=== PATIENT | female | born 1980 | race Caucasian/White ===

== ENCOUNTER 2020-06-12 07:42 | Outpatient (REF) | payer OTHER, SELFPAY ==
[2020-06-12 08:19] LABS: Hematocrit 38.3 % (37-47); Hemoglobin 12.7 g/dl (12.0-16.0); Mean Corpuscular HGB Conc 33.2 g/dl (31.0-35.0); Mean Corpuscular Hemoglobin 30.8 pg (27.0-33.0); Mean Corpuscular Volume 92.7 fL (80-98); Mean Platelet Volume 9.6 fL (9.4-12.3); Platelet Count 233 X10*3/uL (160-400); Red Blood Count 4.13 X10*6/uL (4.20-5.50); Red Cell Distribution Width 11.4 % (11.0-16.0); White Blood Count 5.4 X10*3/uL (4.8-10.8)
[2020-06-12 08:55] LABS: Alanine Aminotransferase 12 U/L (0-31); Albumin Level 4.2 g/dL (3.5-5.0); Alkaline Phosphatase 53 U/L (39-117); Anion Gap 11 (12-20); Aspartate Amino Transferase 16 U/L (5-31); Bilirubin Total 0.4 mg/dL (0.0-1.0); Blood Urea Nitrogen 18 mg/dL (9-16); Carbon Dioxide 26 mmol/L (22-29); Chloride 105 mmol/L (96-108); Cholesterol 215 mg/dL; Estimated Glomerular Filt Rate > 60; Glucose Fasting 98 mg/dL (60-99); HDL Cholesterol 68 mg/dL; LDL Cholesterol Calculated 124 mg/dl; Potassium 4.6 mmol/l (3.3-5.1); Sodium 137 mmol/L (135-145); Total Protein 7.2 g/dL (6.5-8.0); Triglycerides 119 mg/dL
[2020-06-12 09:18] LABS: Thyroid Stimulating Hormone 0.87 mIU/mL (0.32-4.0)
[2020-06-12 09:23] LABS: Glucose Urine UA NEG (NEG); Leukocyte Esterase Urine NEG (NEG); Nitrite Urine NEG (NEG); PH 6.5 (5.0-8.0); Urine Ketones NEG (NEG); Urine Protein NEG (NEG-TRACE)
[2020-06-12 09:29] LABS: Appearance Urine CLEAR; Color Urine YELLOW; Urine Blood TRACE (NEG)
[2020-06-12 09:40] LABS: Squamous Epithelial Cell Urine 1+ /LPF; WBC Urine 0-2 /HPF (0-4)
== END 2020-06-12 07:43 | disposition home or self-care (01) ==
LOC: HO.LAB 07:42
PROVIDERS: PCP Internal Medicine; Visit Provider Internal Medicine
DX: Z00.00 Encounter for general adult medical examination without abnormal findings (principal)
CPT/HCPCS: 36415; 80053; 80061; 81001; 84443; 85027

== ENCOUNTER 2020-07-14 08:58 | Outpatient (REF) | payer OTHER, SELFPAY ==
--- NOTE | 2020-07-14 09:01 | MM_ITS ---
EXAMINATION: MM DIAGNOSTIC DIGITAL BREAST TOMOSYNTHESIS, BILATERAL CLINICAL INFORMATION: Probable benign asymmetric densities anterior left breast. Due for yearly. The lifetime risk of breast cancer based on the Tyrer-Cuzick Model is 16%. COMPARISON: Mammography: 01/14/2020, 07/13/2019, 05/03/2017 (baseline). TECHNIQUE: Digital breast tomosynthesis is performed in both the craniocaudal and mediolateral oblique views along with computer-aided detection (CAD). Synthesized 2D images are generated from the tomosynthesis. Additional exaggerated left CC view is provided. FINDINGS: There are scattered areas of fibroglandular density (ACR BI-RADS breast composition Category b). Parenchymal pattern is similar to prior studies. Parenchymal asymmetry central upper left breast on MLO view is similar to prior exams dating back to baseline study 2016. There is no developing density or interval mass or architectural abnormality. No abnormal calcifications. The axilla and skin contours are unremarkable. Results are discussed with the patient at time of visit. MM/MM tomosynthesis diagnostic BI IMPRESSION: No mammographic evidence of malignancy. No significant changes from prior studies dating back to baseline exam 05/03/2017. ASSESSMENT: BI-RADS 2: Benign RECOMMENDATION: Routine annual mammography screening, by age 40, or earlier as clinical risk factors warrant. This patient's information was entered into a reminder system with a target due date for their next mammogram.
== END 2020-07-14 08:59 | disposition home or self-care (01) ==
LOC: HO.MAMMO 08:58
PROVIDERS: PCP Internal Medicine; Visit Provider Internal Medicine
DX: R92.2 Inconclusive mammogram (principal)
CPT/HCPCS: 77062; 77066

== ENCOUNTER 2021-05-12 07:54 | Outpatient (REF) | payer OTHER, SELFPAY ==
[2021-05-12 08:40] LABS: Hematocrit 38.2 % (37-47); Hemoglobin 12.4 g/dl (12.0-16.0); Mean Corpuscular HGB Conc 32.5 g/dl (31.0-35.0); Mean Corpuscular Hemoglobin 29.9 pg (27.0-33.0); Mean Platelet Volume 9.5 fL (9.4-12.3); Platelet Count 238 X10*3/uL (160-400); Red Blood Count 4.15 X10*6/uL (4.20-5.50); Red Cell Distribution Width 11.5 % (11.0-16.0); White Blood Count 6.3 X10*3/uL (4.8-10.8)
[2021-05-12 08:43] LABS: Glucose Urine UA NEG (NEG); Leukocyte Esterase Urine 2+ (NEG); Nitrite Urine NEG (NEG); Specific Gravity - Urine <= 1.005 (1.005-1.025); Urine Blood TRACE (NEG); Urine Ketones NEG (NEG); Urine Protein NEG (NEG-TRACE)
[2021-05-12 08:44] LABS: Appearance Urine CLEAR; Color Urine YELLOW
[2021-05-12 08:52] LABS: RBC Urine 0-2 /HPF (0)
[2021-05-12 08:53] LABS: Bacteria Urine 1+ /LPF; Squamous Epithelial Cell Urine 2+ /LPF
[2021-05-12 09:05] LABS: Alanine Aminotransferase 12 U/L (0-31); Albumin Level 4.2 g/dL (3.5-5.0); Alkaline Phosphatase 56 U/L (39-117); Anion Gap 11 (12-20); Aspartate Amino Transferase 21 U/L (5-31); Bilirubin Total 0.8 mg/dL (0.0-1.0); Blood Urea Nitrogen 12 mg/dL (9-16); Calcium 9.4 mg/dL (8.4-10.2); Carbon Dioxide 25 mmol/L (22-29); Chloride 103 mmol/L (96-108); Cholesterol 229 mg/dL; Estimated Glomerular Filt Rate > 60; Glucose Fasting 95 mg/dL (60-99); HDL Cholesterol 80 mg/dL; LDL Cholesterol Calculated 119 mg/dl; Potassium 4.3 mmol/L (3.3-5.1); Sodium 135 mmol/L (135-145); Total Protein 7.5 g/dL (6.5-8.0); Triglycerides 154 mg/dL
== END 2021-05-12 07:55 | disposition home or self-care (01) ==
LOC: HO.LAB 07:54
PROVIDERS: PCP Internal Medicine; Visit Provider Internal Medicine
DX: Z00.00 Encounter for general adult medical examination without abnormal findings (principal)
CPT/HCPCS: 36415; 80053; 80061; 81001; 85027

== ENCOUNTER 2021-09-28 08:26 | Outpatient (REF) | payer OTHER, SELFPAY ==
--- NOTE | ~2021-09-28 | MM_ITS ---
EXAMINATION: MM SCREENING DIGITAL BREAST TOMOSYNTHESIS, BILATERAL CLINICAL INFORMATION: Screening. Asymptomatic. No known family history of breast cancer. The lifetime risk of breast cancer based on the Tyrer-Cuzick Model is 14%. COMPARISON: Mammography: 07/14/2020, 01/14/2020, 07/13/2019, 05/03/2017 (baseline); ultrasound left breast 07/13/2019, 05/03/2017. TECHNIQUE: Digital breast tomosynthesis is performed in both the craniocaudal and mediolateral oblique views along with computer-aided detection (CAD). Synthesized 2D images are generated from the tomosynthesis. FINDINGS: There are scattered areas of fibroglandular density (ACR BI-RADS breast composition Category b). Left breast has subtle new architectural changes anterior 5:30 o'clock position. Patient will be recalled for additional imaging. Remainder of the left breast appears similar to prior studies. There is nodular asymmetry upper quadrant mid depth approximately 0.7 cm with 2 smaller adjacent satellite nodularity central breast along posterior nipple line similar to baseline exam. The right breast shows no mass or architectural abnormality or significant changes. Neither breast shows abnormal calcifications. The axilla are unremarkable. No focal skin thickening. MM/MM tomosynthesis screening BI IMPRESSION: 1. Left: Subtle new architectural changes anterior 5:30 o'clock position. 2. Right: No mammographic evidence of malignancy. ASSESSMENT: BI-RADS 0: Incomplete - Need Additional Imaging Evaluation RECOMMENDATION: 1. Additional views of the left breast (rolled CC x 2; spot ML). 2. Targeted ultrasound left breast. 3. Radiology department staff will contact the patient for additional imaging. This patient's information was entered into a reminder system with a target due date for their next mammogram.
== END 2021-09-28 08:27 | disposition home or self-care (01) ==
LOC: HO.MAMMO 08:26
PROVIDERS: PCP Internal Medicine; Visit Provider Internal Medicine
DX: Z12.31 Encounter for screening mammogram for malignant neoplasm of breast (principal)
CPT/HCPCS: 77063; 77067

== ENCOUNTER 2021-10-02 09:19 | Outpatient (REF) | payer OTHER, SELFPAY ==
--- NOTE | ~2021-10-02 | MM_ITS ---
EXAMINATION: MM DIAGNOSTIC DIGITAL BREAST TOMOSYNTHESIS, LEFT US DIAGNOSTIC ULTRASOUND BREAST, LEFT CLINICAL INFORMATION: Recall from screening for subtle new architectural changes anterior lower left breast. No known family history breast cancer. TC score 14%. COMPARISON: Mammography: 09/28/2021, 07/14/2020 TECHNIQUE: Digital breast tomosynthesis is performed. 2D images are generated from the tomosynthesis. The following views are obtained: Rolled CC x2, spot ML. Ultrasound left breast is targeted to the lower breast. Grayscale imaging and color Doppler are performed without and with harmonics. Comparison scanning performed on the right same area. FINDINGS: There are scattered areas of fibroglandular density (ACR BI-RADS breast composition Category b). The additional views demonstrate persistence of the subtle focal architectural changes anterior lower breast corresponding to recent screening exam. Ultrasound demonstrates subtle architectural change anterior lower breast best appreciated on the transverse images and measuring approximately 5 mm in diameter. The finding is not as well appreciated scanning in the sagittal plane. There is no focal posterior shadowing. Results are discussed with the patient and her at time of visit. Recommended stereotactic sampling for further assessment. Results and recommendation called to home office representative (Abbie) for Dr. Tabares on 10/02/2021. MM/MM tomosynthesis added views L IMPRESSION: New subtle architectural changes lower anterior left breast. ASSESSMENT: BI-RADS 4: Suspicious RECOMMENDATION: Stereotactic biopsy left breast. This patient's information was entered into a reminder system with a target due date for their next mammogram.
== END 2021-10-02 09:20 | disposition home or self-care (01) ==
LOC: HO.MAMMO 09:19
PROVIDERS: Visit Provider Internal Medicine
DX: N64.89 Other specified disorders of breast (principal)
CPT/HCPCS: 76642; 77061; 77065

== ENCOUNTER 2021-10-05 11:33 | Outpatient (REF) | payer OTHER, SELFPAY ==
--- NOTE | ~2021-10-05 | MM_ITS ---
EXAMINATION: STEREOTACTIC TOMOSYNTHESIS-GUIDED VACUUM-ASSISTED BREAST BIOPSY, LEFT SPECIMEN RADIOGRAPH, LEFT POST PROCEDURE DIGITAL BREAST TOMOSYNTHESIS, LEFT CLINICAL INFORMATION: New subtle architectural changes lower anterior left breast for stereotactic sampling. COMPARISON: Mammography 10/02/2021, 09/28/2021, 07/14/2020, ultrasound left breast 10/02/2021. TECHNIQUE/PROCEDURE: Informed consent was obtained from the patient after discussion of the benefits, risks, and alternatives to biopsy today. Patient appeared to understand. Gave opportunity for questions. Patient signed consent form. BIOPSY TABLE: [employer] Biopsy System. LESION: Subtle architectural changes lower anterior left breast. LOCAL ANESTHESIA: 10 mL carbonated 1% lidocaine; 10 mL 1% lidocaine with epinephrine. DERMATOTOMY: Single skin sharmaine dermatotomy performed. NEEDLE: [employer] 9-gauge vacuum assisted core biopsy device. APPROACH: caudal cranial. TARGETING: Combination of digital breast tomosynthesis and stereotactic digital mammography used for targeting. CORES: 15. CLIP: [employer] T-shaped marker. SPECIMEN RADIOGRAPH: Specimen radiograph is taken in separate room using digital mammography. There are scattered parenchymal densities in the cores as anticipated. POST PROCEDURE UNILATERAL DIGITAL BREAST TOMOSYNTHESIS, LEFT: The post biopsy mammogram is performed in separate room using separate digital breast tomosynthesis equipment from the biopsy procedure. CC and ML views are obtained. Synthesized 2-D images are generated from the tomography. There are scattered areas of fibroglandular density (breast composition category: b). The clip marker is in position or overlying the area of subtle architectural change. No gross hematoma. The patient tolerated the procedure well. No immediate complications. Home instructions reviewed with the patient. Final pathology results are pending. MM/MM stereotactic biopsy LT IMPRESSION: 1. Digital tomosynthesis-guided core biopsy left breast with clip placement. 2. Specimen radiograph taken and post procedure mammogram. There is satisfactory positioning of the biopsy clip. 3. Final pathology results pending. An addendum report will be issued.
[2021-10-05] MEDS: Lidocaine HCl 1 % 20 ML VIAL 10 ML SUBCUT (13:27)
[2021-10-05] MEDS: Sodium Bicarbonate 8.4% 50 MEQ/50 ML VIAL SUBCUT (13:33)
== END 2021-10-05 11:34 | disposition home or self-care (01) ==
LOC: HO.MAMMO 11:33
PROVIDERS: PCP Internal Medicine; Visit Provider Surgery
DX: R92.8 Other abnormal and inconclusive findings on diagnostic imaging of breast (principal); C50.512 Malignant neoplasm of lower-outer quadrant of left female breast; Z17.0 Estrogen receptor positive status [ER+]; Z88.2 Allergy status to sulfonamides; Z79.3 Long term (current) use of hormonal contraceptives
CPT/HCPCS: 19081; 88305; 88342; 88360; A4648

== ENCOUNTER 2021-10-12 14:11 | Outpatient (REF) | payer OTHER, SELFPAY ==
[2021-10-12 15:36] LABS: Blood Urea Nitrogen 14 mg/dL (9-16); Estimated Glomerular Filt Rate > 60
== END 2021-10-12 14:12 | disposition home or self-care (01) ==
LOC: HO.LAB 14:11
PROVIDERS: PCP Internal Medicine; Visit Provider Surgery
DX: R92.8 Other abnormal and inconclusive findings on diagnostic imaging of breast (principal); C50.919 Malignant neoplasm of unspecified site of unspecified female breast
CPT/HCPCS: 36415; 82565; 84520

== ENCOUNTER 2021-10-16 07:19 | Outpatient (REF) | payer OTHER, SELFPAY ==
--- NOTE | ~2021-10-16 | MR_ITS ---
EXAMINATION: MR BREAST WITHOUT AND WITH CONTRAST, BILATERAL CLINICAL INFORMATION: New diagnosis left breast invasive lobular carcinoma, 6:00 position. COMPARISON: Bilateral mammogram 09/28/2021, targeted left breast ultrasound and left diagnostic mammogram 10/02/2021 and images from stereotactic core biopsy 10/05/2021 TECHNIQUE: Imaging was performed with a dedicated breast coil. Prior to the administration of contrast, bilateral axial T1 and bilateral axial T2 weighted sequences were obtained. After the uneventful administration of?7.5 mL of Gadavist, dynamic contrast-enhanced VIBRANT series through the breasts in the axial plane were performed. Subtracted images were performed and reviewed. A delayed sagittal sequence through both breasts was acquired. Additionally, CAD post-processing, including maximum intensity projections, 3-D reconstructions and kinetic analysis, were performed an independent workstation and reviewed by the interpreting radiologist is a portion of this exam. FINDINGS: The patient's scattered fibroglandular tissue demonstrates mild background enhancement. LEFT BREAST: In the 5:00 position, 3 cm from the nipple (subtracted sequence image 70 of 96) there is a clip containing irregular, T2 heterogeneous signal enhancing mass measuring 1.6 x 1.4 cm, this is consistent with the biopsy-proven invasive lobular carcinoma. Kinetic analysis of the index lesion reveals mixed type II and type III enhancement kinetics. There is mild skin thickening overlying the dominant lesion which may reflect postbiopsy change. No abnormal skin enhancement is seen. There is an area of nonmasslike enhancement approximately 1 cm posterior to the index lesion in the 5:00 segment approximately 2.1 cm, suspicious for malignancy. There are 2 small satellite nodules immediately superior to the index lesion, the more anterior of these measures 0.4 cm and is seen on image 68 of 96, the more superior of these satellite lesions measures 0.5 cm and is seen on image 65 of 96. In the 5:00 position, 9 cm from the nipple at a posterior depth (subtracted sequence image 74 of 96) there is a T2 hypointense round, indistinct enhancing mass measuring 0.8 cm, this demonstrates mixed (combined type II and type III) enhancement kinetics and is suspicious for multifocal disease. In the 2 to 3:00 position, 5 cm from the nipple (subtracted sequence image 54 of 96) there is a round, T2 heterogeneous signal enhancing mass measuring 0.6 cm. Although this demonstrates progressive enhancement kinetics, the morphology and discrete appearance of this finding are suspicious. In the retroareolar plane, central breast, 7 cm posterior to the nipple there is a tiny, round focus of enhancement that despite its small size (0.3 cm), demonstrates suspicious enhancement kinetics, combined type II and type III curves, also suspicious for an additional site of malignancy. Finally, there is an irregular shaped T2 hypointense enhancing nodule at the base of the nipple measuring 0.4 cm, enhancement kinetics are suspicious (combined type II and type III curve), suspicious for an additional site of malignancy. RIGHT BREAST: In the 8:00 position, 1.2 cm posterior to the nipple (subtracted sequence image 71 of 96) there is an enhancing focus measuring 0.3 cm, this demonstrates primarily type II enhancement kinetics and is indeterminate in appearance. There is no area of right-sided architectural distortion, skin thickening or nipple retraction present. There is no suspicious internal mammary chain or axillary adenopathy. Limited views of the chest and abdomen are unremarkable. MR/MR breast BI wo/w con IMPRESSION: Biopsy-proven left breast carcinoma, the index lesion is in the 5:00 position as above, measuring 1.6 cm in size; there is an associated area of suspicious nonmasslike enhancement measuring 2.1 cm, 1 cm posterior to the index lesion in the 5:00 segment. There are 2 probable small satellite lesions immediately superior to the index lesion in the 4 to 5:00 position as above. Additional abnormal enhancing masses are noted in the 5:00 position, posterior depth measuring 0.8 cm; 2 to 3:00 position at a middle depth measuring 0.6 cm;, in the central breast at a middle depth measuring 0.3 cm and at the base of the left nipple. Multicentric disease is suspected. There is a focus of indeterminate enhancement in the right breast at 8:00 position as above measuring 0.3 cm. ASSESSMENT: LEFT BREAST: BI-RADS 6, known malignancy is present. RIGHT BREAST: BI-RADS 4, suspicious. RECOMMENDATIONS: Recommend second look ultrasound to assess for multiple additional areas of abnormality in the left breast including nonmasslike enhancement posterior to the index lesion in the 5:00 segment measuring 2.1 cm, round enhancing mass in the 5:00 position, 9 cm from the nipple, round enhancing mass in the 2 to 3:00 position, middle depth and 0.4 cm nodule at the base of the nipple. If there are correlating areas on ultrasound, ultrasound-guided core biopsy may be performed to better determine the extent of disease. If no sonographic correlate is seen, MR guided core biopsy should be performed. It is unlikely that the enhancing focus in the central left breast and enhancing focus in the 8:00 position of the right breast would be visible with targeted ultrasound, therefore, MR guided core biopsy of those lesions is recommended. Results were called to JOSUE Mitchell at Dr. Tabares's office on 10/19/21.
== END 2021-10-16 07:20 | disposition home or self-care (01) ==
LOC: HO.MRI 07:19
PROVIDERS: Visit Provider Surgery
DX: C50.919 Malignant neoplasm of unspecified site of unspecified female breast (principal); R92.8 Other abnormal and inconclusive findings on diagnostic imaging of breast
CPT/HCPCS: 77049; A9585

== ENCOUNTER → 2021-10-19 12:52 | Outpatient (BNVA) | payer OTHER, SELFPAY | PROVIDERS: PCP Internal Medicine; Referring Provider Internal Medicine; Visit Provider Surgery ==

== ENCOUNTER 2022-10-08 08:13 | Outpatient (REF) | payer OTHER, SELFPAY ==
[2022-10-08 08:23] LABS: MANUAL DIFF FLAG NO
[2022-10-08 09:02] LABS: Basophils Percent Auto 0.4 % (0-2); Eosinophils Absolute Auto 0.1 X10*3/uL (0.0-0.4); Eosinophils Percent Auto 2.6 % (0-4); Hemoglobin 10.4 g/dl (12.0-16.0); Imm Gran Abs Auto 0.01 X10*3/uL (0.00-0.03); Imm Gran Pct Auto 0.4 % (0.0-0.4); Lymphocytes Absolute Auto 0.5 X10*3/uL (1.2-4.9); Lymphocytes Percent Auto 17.7 % (20-40); Mean Corpuscular HGB Conc 32.5 g/dl (31.0-35.0); Mean Corpuscular Hemoglobin 30.1 pg (27.0-33.0); Mean Corpuscular Volume 92.8 fL (80.0-98.0); Mean Platelet Volume 9.3 fL (9.4-12.3); Monocytes Absolute Auto 0.3 X10*3/uL (0.1-1.2); Monocytes Percent Auto 11.8 % (2-11); Neutrophils Absolute Auto 1.8 x10*3/uL (2.0-8.3); Neutrophils Percent Auto 67.1 % (45-73); Platelet Count 215 X10*3/uL (160-400); Red Blood Count 3.45 X10*6/uL (4.20-5.50); White Blood Count 2.7 X10*3/uL (4.8-10.8)
[2022-10-08 09:54] LABS: Alanine Aminotransferase 29 U/L (0-31); Albumin Level 4.1 g/dL (3.5-5.0); Alkaline Phosphatase 62 U/L (39-117); Anion Gap 11 (12-20); Aspartate Amino Transferase 28 U/L (5-31); Bilirubin Total 0.5 mg/dL (0.0-1.0); Blood Urea Nitrogen 14 mg/dL (9-16); Calcium 9.3 mg/dL (8.4-10.2); Carbon Dioxide 28 mmol/L (22-29); Chloride 106 mmol/L (96-108); Cholesterol 182 mg/dL; Estimated Glomerular Filt Rate > 60; Glucose Fasting 100 mg/dL (60-99); HDL Cholesterol 58 mg/dL; LDL Cholesterol Calculated 110 mg/dl; Potassium 4.3 mmol/L (3.3-5.1); Sodium 141 mmol/L (135-145); Total Protein 6.7 g/dL (6.5-8.0); Triglycerides 74 mg/dL
[2022-10-08 10:11] LABS: TSH reflex Free T4 1.03 uIU/mL (0.32-4.0)
== END 2022-10-08 08:14 | disposition home or self-care (01) ==
LOC: HO.LAB 08:13
PROVIDERS: PCP Internal Medicine; Visit Provider Internal Medicine
DX: Z00.00 Encounter for general adult medical examination without abnormal findings (principal)
CPT/HCPCS: 36415; 80053; 80061; 84443; 85025

== ENCOUNTER 2022-10-26 10:26 | Outpatient (REF) | payer OTHER, SELFPAY ==
--- NOTE | ~2022-10-26 | MM_ITS ---
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 Age 42. COMPARISON: None (current study represents initial baseline exam). TECHNIQUE: Using a evOLED DXA System (software version: 13.1) manufactured by [employer], dual-energy x-ray absorptiometry was performed of the lumbar spine and left hip. The images are of good technical quality. Based on ISCD (International Society for Clinical Densitometry) standards of reporting, Z-scores instead of T-scores are reported in this premenopausal woman. Summary results are attached. FINDINGS: AP SPINE L1-L4: BMD 1.131 g/cm2, T-score -0.4, Z-score -0.7, Z-score within expected range for age. LEFT FEMUR, NECK: BMD 0.895 g/cm2, T-score -1.0, Z-score -0.7, Z-score within expected range for age. LEFT FEMUR, TOTAL: BMD 0.970 g/cm2, T-score -0.3, Z-score -0.2, Z-score within expected range for age. IDENTIFIED RISK FACTORS: None listed. HISTORY OF FRACTURE: None listed. MEDICATIONS: Vitamin D. MM/XR DEXA axial skeleton IMPRESSION: 1. DIAGNOSIS: Based on the lowest Z-score value of -0.7 in the lumbar spine and femur neck, the patient's bone density is within the expected range for age. 2. 10-YEAR FRACTURE RISK PREDICTION, FRAX: Not performed in this perimenopausal patient. 3. Treatment Recommendations: NOF guidelines recommend consideration for treatment in postmenopausal women and men age 50 and older presenting with the following: -A hip or vertebral (clinical or morphometric) fracture. -T-score less than or equal to -2.5 at the femoral neck or spine after appropriate evaluation to exclude secondary causes. -Low bone mass at the hip or spine and a 10-year fracture probability by FRAX of greater than or equal to 3% for hip fracture or greater than or equal to 20% for major osteoporotic fracture based on the [place] adapted WHO algorithm. 4. Other Recommendations: All treatment decisions require clinical judgment and consideration of individual patient factors, including patient preferences, comorbidities, previous drug use, risk factors not captured in the FRAX model (e.g. frailty, falls, vitamin D deficiency, increased bone turnover, interval significant decline in bone density) and possible under or overestimation of fracture risk by FRAX. FUTURE SCAN RECOMMENDATION: People with diagnosed cases of osteoporosis or at high risk for fracture should have regular bone mineral density tests. For patients eligible for Medicare, routine testing is allowed once every 2 years. The testing frequency can be increased to one year for patients who have rapidly progressing disease, those who are receiving or discontinuing medical therapy to restore bone mass, or have additional risk factors.
== END 2022-10-26 10:27 | disposition home or self-care (01) ==
LOC: HO.MAMMO 10:26
PROVIDERS: PCP Internal Medicine; Visit Provider Internal Medicine
DX: N95.8 Other specified menopausal and perimenopausal disorders (principal); C50.912 Malignant neoplasm of unspecified site of left female breast; Z17.0 Estrogen receptor positive status [ER+]; Z13.820 Encounter for screening for osteoporosis
CPT/HCPCS: 77080

== ENCOUNTER 2022-12-20 09:01 | Outpatient (REF) | payer OTHER, SELFPAY ==
[2022-12-20 11:17] LABS: Iron 52 mcg/dL (30-160); Percent Iron Saturation 16 % (15-50); Total Iron Binding Capacity 321 mcg/dL (228-428); Unsaturated Iron Binding 269 ug/dL
[2022-12-20 11:35] LABS: Folate > 20.0 ng/mL (> or = 4.0); Vitamin B12 344 pg/mL (200-900)
== END 2022-12-20 09:02 | disposition home or self-care (01) ==
LOC: HO.LAB 09:01
PROVIDERS: Absent Provider Internal Medicine; PCP Internal Medicine; Visit Provider Internal Medicine
DX: D64.9 Anemia, unspecified (principal); K62.5 Hemorrhage of anus and rectum; K64.9 Unspecified hemorrhoids; Z83.71 Family history of colonic polyps
CPT/HCPCS: 36415; 82607; 82746; 83540

== ENCOUNTER 2023-02-28 15:29 | Outpatient (REF) | payer OTHER, SELFPAY ==
[2023-02-28 16:50] LABS: Hematocrit 32.8 % (37.0-47.0); Hemoglobin 10.9 g/dl (12.0-16.0); Mean Corpuscular HGB Conc 33.2 g/dl (31.0-35.0); Mean Corpuscular Hemoglobin 30.9 pg (27.0-33.0); Mean Corpuscular Volume 92.9 fL (80.0-98.0); Mean Platelet Volume 9.7 fL (9.4-12.3); Platelet Count 213 X10*3/uL (160-400); Red Blood Count 3.53 X10*6/uL (4.20-5.50); Red Cell Distribution Width 12.4 % (11.0-16.0); White Blood Count 5.6 X10*3/uL (4.8-10.8)
== END 2023-02-28 15:30 | disposition home or self-care (01) ==
LOC: HO.LAB 15:29
PROVIDERS: PCP Internal Medicine; Visit Provider Internal Medicine
DX: K62.5 Hemorrhage of anus and rectum (principal); D64.9 Anemia, unspecified
CPT/HCPCS: 36415; 85027

== ENCOUNTER 2023-04-20 07:49 | Day surgery (SDC) | payer OTHER, SELFPAY ==
[2023-04-15 15:09] VITALS: BMI 23.4
--- NOTE | 2023-04-19 10:40 | P.CONAN_ITS ---
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 (Acute) Invasive lobular carcinoma of breast in female (Acute) Abnormal mammogram of left breast (Acute) Normal Pap smear (Acute) Annual physical exam (Acute) Past Medical History Medical History Abnormal mammogram of left breast Annual physical exam Invasive lobular carcinoma of breast in female 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 Normal Pap smear Family History Family History Maternal Grandfather Colon polyps Surgical History Surgical History History of appendectomy Hx of bilateral mastectomy Social History Social History Housing: House Patient Tobacco Use Status: Never used Tobacco e-Cigarette/Vaping Use: Never Used Second Hand Smoke Exposure: No Are you DNR?: No Advance Directives: No Advance Directives Information Provided: Yes service: No Current occupational status: employed Cognitive needs: No Hearing needs: No Vision needs: No Meds Allergies Allergy/AdvReac Type Severity Reaction Status Date / Time Sulfa (Sulfonamide Allergy Intermediate HIVES, rash Verified 02/28/23 15:40 Antibiotics) [SULFA (SULFONAMIDE ANTIBIOTICS)] Latex, Natural Rubber Allergy Mild rash Verified 02/28/23 15:40 Home Medications Medication Instructions Recorded Confirmed Last Taken Type anastrozole 1 mg tablet 1 mg PO DAILY 10/13/22 04/20/23 04/19/23 History leuprolide 3.75 mg intramuscular 3.75 mg IM Q4W 12/20/22 04/20/23 03/29/23 History syringe kit (Lupron Depot) cholecalciferol (vitamin D3) 10 10 mcg PO DAILY 02/28/23 04/20/23 04/18/23 History mcg (400 unit) capsule vitamin B complex (B 1 tab PO DAILY 02/28/23 04/20/23 04/18/23 History Complex-Vitamin B12 tablet) Exam Exam Date and Time: April 19, 2023 1040 Height,Weight and Vital Signs: Height 5 ft 10 in Weight 73.936 kg Pertinent Lab Results Pertinent Lab Results: Laboratory Tests 10/08/22 02/28/23 08:22 16:31 WBC 5.6 Hgb 10.9 L Hct 32.8 L Plt Count 213 Sodium 141 Potassium 4.3 Chloride 106 Carbon Dioxide 28 BUN 14 Creatinine 0.81 Assessment and Plan Assessment Anesthesia Assessment: Chart Reviewed Documented by User: Shireen Short MD 04/20/23 09:34 PMFSH Active Problems Active Problems: All Active Problems (Updated 04/20/23 @ 09:23 by Shireen Short MD) FHx: colonic polyps (Acute) Artificial menopause (Acute) Anemia (Acute) Bright red rectal bleeding (Acute) Hemorrhoids (Acute) 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 (Acute) Invasive lobular carcinoma of breast in female (Acute) Abnormal mammogram of left breast (Acute) Normal Pap smear (Acute) Annual physical exam (Acute) Headache this morning Vomiting this morning X1 Past Medical History Medical History Abnormal mammogram of left breast Annual physical exam Invasive lobular carcinoma of breast in female 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 Normal Pap smear Family History Family History Maternal Grandfather Colon polyps Family history of problems with anesthesia: No Surgical History Surgical History History of appendectomy Hx of bilateral mastectomy History of Problems with Anesthesia: No Social History Social History Housing: House Patient Tobacco Use Status: Never used Tobacco e-Cigarette/Vaping Use: Never Used Second Hand Smoke Exposure: No Are you DNR?: No Advance Directives: No Advance Directives Information Provided: Yes service: No Current occupational status: employed Cognitive needs: No Hearing needs: No Vision needs: No Meds Allergies Allergy/AdvReac Type Severity Reaction Status Date / Time Sulfa (Sulfonamide Allergy Intermediate HIVES, rash Verified 02/28/23 15:40 Antibiotics) [SULFA (SULFONAMIDE ANTIBIOTICS)] Latex, Natural Rubber Allergy Mild rash Verified 02/28/23 15:40 Home Medications Medication Instructions Recorded Confirmed Last Taken Type anastrozole 1 mg tablet 1 mg PO DAILY 10/13/22 04/20/23 04/19/23 History leuprolide 3.75 mg intramuscular 3.75 mg IM Q4W 12/20/22 04/20/23 03/29/23 History syringe kit (Lupron Depot) cholecalciferol (vitamin D3) 10 10 mcg PO DAILY 02/28/23 04/20/23 04/18/23 History mcg (400 unit) capsule vitamin B complex (B 1 tab PO DAILY 02/28/23 04/20/23 04/18/23 History Complex-Vitamin B12 tablet) Exam Height,Weight and Vital Signs: Height 5 ft 10 in Weight 73.936 kg Vital Signs Temp Pulse Resp BP Pulse Ox O2 Del Method 04/20/23 08:28 97.7 F 72 16 117/84 99 Room Air Pertinent Lab Results Pertinent Lab Results: Laboratory Tests 10/08/22 02/28/23 08:22 16:31 WBC 5.6 Hgb 10.9 L Hct 32.8 L Plt Count 213 Sodium 141 Potassium 4.3 Chloride 106 Carbon Dioxide 28 BUN 14 Creatinine 0.81 Lab Results 04/20/23 Range/Units 08:15 Urine Test NEGATIVE (NEGATIVE) Airway Mallampati Class: II TM Dist: >3cm Neck ROM: Full Loose/Missing/Broken Teeth: No (Denies broken, loose, missing teeth) Heart: RRR Lungs: CTAB Assessment and Plan Assessment Anesthesia Assessment: Anesthesia Plan Discussed Final Anesthetic Review Family History of Problems with Anesthesia: No History of Problems with Anesthesia: No NPO: Yes ASA Class: II Final Preanesthetic Review: No Changes in Pt Med Stat, Meds/Allgs Chart Revie wed, Consent Obtained/Reviewed and Anes Risks/Benef Reviewed Patient Risk: Low Procedure Risk: Low Assessment/Block/Sedation in SS: Assess/Block/Sedation-SS Anesthetic Plan Anesthetic Plan: MAC: Disposition: Standard PACU
--- OUTSIDE RECORDS SUMMARY | 2023-04-20 07:52 | XMS_ITS | Continuity of Care Document ---
Author Name Unknown Organization [facility] ter Address [address] [place] [address]- Care Team Providers Care Tattoo Identifier Name Role Phone Anamaria Tabares MD Primary Care Physician [place] [facility] [place] - 07/19/[address] [address] Discharge Disposition: A-D/C Home Attending Physician: Sekou Watson MD Admitting Physician: Sekou Watson MD Referring Physician: Sekou Watson MD Allergies, Adverse Reactions, Alerts Substance Reaction Severity Status sulfADIAZINE full body rash Active Pollen congestion Active Medications acetaminophen 325 mg oral capsule 2 capsule = 650 mg, By Mouth, 3 times a day, PRN as needed for pain, for 10 days, # 60 capsule, 0 Refills, Acute 07/29/22 16:05:00 EST, 07/19/22 16:05:00 EST, Capsule, [id number], Partial fill upon patient request if the prescription is for a... Start Date: 07/19/22 Stop Date: 07/29/22 Status: Ordered cephalexin monohydrate 500 mg oral capsule 1 capsule = 500 mg, By Mouth, Every 8 hours, for 7 days, # 21 capsule, 0 Refills, Acute 07/26/22 16:05:00 EST, 07/19/22 16:05:00 EST, Capsule, [id number], Partial fill upon patient request ifthe prescription is for a schedule II opioid drug.,... Start Date: 07/19/22 Stop Date: 07/26/22 Status: Ordered HYDROmorphone Inj (PACU ONLY) 0.2 mg, Injection, IV Push Slowly, Every 5 minutes, up to a maximum of 2 mg, Hold for: RR less than8 OR Sedation Scale of C, PRN for Pain , Severe, Routine, 07/19/22 17:07:00 EST Start Date: 07/19/22 Stop Date: 07/26/22 Status: Ordered ibuprofen 600 mg oral tablet 600 mg, 1, tablet, By Mouth, Every 8 hours, for 10 days, # 30 tablet, Refills 0, Tot. Refills 0, Acute 07/29/22 16:05:00 EST, 07/19/22 16:05:00 EST, Route to Pharmacy Electronically, [facility]/pharmacy #[id number], Partial fill upon patient request if the prescri... Start Date: 07/19/22 Stop Date: 07/29/22 Status: Ordered oxyCODONE 5 mg oral tablet 5 mg, 1, tablet, By Mouth, Every 6 hours, PRN, for 3 days, # 12 tablet, Refills 0, Tot. Refills 0, Acute 07/22/22 16:06:00 EST, as needed for pain, 07/19/22 16:06:00 EST, Route to Pharmacy Electronically, [facility]/pharm[facility] #[id number], Partial fill upon patient... Start Date: 07/19/22 Stop Date: 07/22/22 Status: Ordered OxyCODONE IR Tablet 5 mg, Tablet, By Mouth, Every 4 hours, in PACU ONLY, if patient can tolerate PO, PRN for Pain , Mild, Routine, 07/19/22 17:07:00 EST Start Date: 07/19/22 Stop Date: 07/26/22 Status: Ordered Problem List Condition Confirmation Course Effective Dates Status Health St atus Informant COVID-19 1 Confirmed 02/26/22 Active Carcinoma of lower-outer quadrant of left breast in female, estrogen receptor positive Confirmed 09/2021 Active 1Problem added by Discern Expert Vital Signs Most recent to oldest [Reference Range]: 1 2 3 Height 175.2 cm (07/19/22 1:28 PM) 175.2 cm (07/16/22 8:33 AM) Weight 72.7 kg (07/19/22 1:28 PM) 72.7 kg (07/16/22 8:33 AM) Oxygen Saturation [94-100 %] 97 % (07/19/22 6:15 PM) 98 % (07/19/22 6:00 PM) 98 % (07/19/22 5:45 PM) Pulse Rate [55-90 bpm] 81 bpm (07/19/22 1:28 PM) Body Mass Index [18.5-24.99 kg/m2] 23.68 kg/m2 (07/19/22 1:28 PM) 23.68 kg/m2 (07/16/22 8:33 AM) Blood Pressure [90-138/55-84 mm Hg] 119/87mm Hg (07/19/22 6:15 PM) 124/84mm Hg (07/19/22 6:00 PM) 122/76mm Hg (07/19/22 5:45 PM) Respiratory Rate [16-30 br/min] 16 br/min (07/19/22 6:28 PM) 14 br/min *L* (07/19/22 6:18 PM) 14 br/min *L* (07/19/22 6:18 PM) Temperature [96.8-100.4 DegF] 97.6 DegF (07/19/22 5:30 PM) 99 DegF (07/19/22 1:28 PM) Mode of Delivery (Oxygen) Room air (07/19/22 7:30 PM) Room air (07/19/22 6:15 PM) Room air (07/19/22 6:00 PM) Blood pressure sites Arm, right (07/19/22 6:15 PM) Arm, right (07/19/22 6:00 PM) Arm, right (07/19/22 5:45 PM) Temperature Route Temporal (07/19/22 5:30 PM) Temporal (07/19/22 1:28 PM) Dry Weight 71.8 kg (07/19/22 1:28 PM) 72.7 kg (07/16/22 8:33 AM) Weight Obtained Via Patient/family state d (07/16/22 8:33 AM) Dry Weight Obtained Via Standing scale (07/19/22 1:28 PM) Patient/family stated (07/16/22 8:33 AM) Social History Social History Type Response Smoking Status Never (less than 100 in lifetime) entered on: 10/27/21 Sex Implantable Device List Procedure Provider Procedure Date Device Type Site Reconstruction Breast with Permanent Imp Walter DUEÑAS, Sekou Perez 11/18/21 Unknown Chest Device Identifier Serial Number Lot or Batch Number Manufacturing Date Expiration Date Distinct Identification Code MRI Safety Implantable Status Assigning Authority Unknown [id number] Unknown 07/30/26 Unknown Unknown Active Unknown Procedure Provider Procedure Date Device Type Site Reconstruction Breast with Permanent Imp Sekou Watson MD 11/18/21 Unknown Chest Device Identifier Serial Number Lot or Batch Number Manufacturing Date Expiration Date Distinct Identification Code MRI Safety Implantable Status Assigning Authority Unknown [id number] Unknown 05/05/26 Unknown Unknown Active Unknown Procedure Provider Procedure Date Device Type Site Reconstruction Breast with Permanent Imp Sekou Watson MD 11/18/21 Unknown Chest Device Identifier Serial Number Lot or Batch Number Manufacturing Date Expiration Date Distinct Identification Code MRI Safety Implantable Status Assigning Authority Unknown [id number] Unknown 02/09/26 Unknown Unknown Active Unknown Procedure Provider Procedure Date Device Type Site Reconstruction Breast with Permanent Imp Sekou Watson MD 11/18/21 Unknown Chest Device Identifier Serial Number Lot or Batch Number Manufacturing Date Expiration Date Distinct Identification Code MRI Safety Implantable Status Assigning Authority Unknown [id number] Unknown 02/09/26 Unknown Unknown Active Unknown Note * Sarika Armstrong RN: PERFORM Event Display: Discharge/Transfer Note Hospital Authored Date: [id number] Nursing Discharge Note Entered On: 07/19/2022 19:33 EST Performed On: 07/19/2022 19:32 EST by Sarika Armstrong RN Nursing Discharge Note 2 Discharge Time : 07/19/2022 19:31 EST Discharge Level of Care at Discharge : Home/[facility] Patient Left Unit Via : Wheelchair Patient Accompanied Off Unit with : Responsible adult DC Instructions Provided & Signed by Pt : Yes Patient Understands D/C Instructions : Yes Verbalized Understanding of D/C Plan By : Patient Patient Instructions Discharge Signed : Yes Did Pt have Specialty Bed or Wound Vac : No Sarika Armstrong RN - 07/19/2022 19:32 EST * Sarika Armstrong RN: PERFORM Event Display: Patient Education/Instruction Authored Date: [id number] Inpatient Adult Discharge Instructions [address] [address] Name: CYN BAEZ : 1980 Visit: 07/19/2022 11:55:00 Current Date: 07/19/2022 18:40 Account: [id number] Inpatient Adult Discharge Instructions We would like to thank you for allowing us to assist you with your healthcare needs. The following includes patient education materials and information regarding your injury/illness. Our entire staffstrives to provide an excellent experience for our patients and their families. PLEASE ENSURE YOU FOLLOW-UP PER THE INSTRUCTIONS BELOW! ?? YOUR OPINION IS IMPORTANT TO US! Please complete the survey you may receive by mail or email. Your feedback will be used to make improvements to the healthcare experiences of our patients and their families. Surveys are administered by [employer]. ?? If further treatment with your primary care physician or another doctor is recommended, it is important for you to keep the appointment. Call your primary care physician or return to the Emergency Department immediately if your condition worsens, fails to improve, or new symptoms develop. If you need to find a doctor, you can call [facility] [employer] for a referral at [phone] or toll free at [phone]YERKEI ([phone]) or log in to [email or web address] ?? You can view and manage your care through the patient portal or by using a health care helen of your choosing. [employer] is a website that allows you to securely view your medical information including your hospital discharge summary, office visit summaries, medications and follow-up visits. You can also request appointments, renew medications, and request access to your medical information using a health care helen of your choosing, or just ask a question. You can enroll at [email or web address] or register during your next office visit. You have been discharged from [facility], Patient Care Unit: [facility]. If you have any questions regarding these instructions after you leave, please call us and we will be happy to assist you. [facility] Your Care Team Attending Physician Walter DUEÑAS, Sekou Perez Discharging Providers Navya Renae MD Reason for Admission LEFT BREAST CANCER ACQUIRED ABSENCE OF LEFT BREAS Primary Care Provider Anamaria Tabares MD Advance Directive Health Care Proxy on File Yes - Health Care Proxy No qualifying data available. Discharge Vitals Temperature: 97.6 DegF Height: 175.2 cm Pulse Rate: 81 bpm Weight: 72.7 kg Respiratory Rate: 16 br/min Body Mass Index: 23.68 kg/m2 Systolic Blood Pressure: 119 mm Hg Body surface area: 1.88 Diastolic Blood Pressure:??87 mm Hg??High ?? Oxygen Saturation: 97 % ?? What to do next Instructions From Your Doctor Discharge Orders Instructions from your Care Team See post-op instruction sheets Take Tylenol as needed for pain, next dose due at 7:30pm Take Oxycodone as needed for severe pain, next dose due at 12:00am Patient may shower in 72 hours with Tegaderm left in place Patient to keep a drain log. A total of drain output in 24 hours recorded every day. Bring drain log to follow up appointment Medications sent electronically to pharmacy NO ICE Scheduled Follow-Up Appointments Tuesday 10:20 AM EST ?? With: Aleah Zhao NP Where: [facility] Plastic Surgery [address] [place] [address] 2021 11:40 AM EST ?? With: Sekou Watson MD Where: [facility] Plastic Surgery [address] [place] [address]- Tuesday 9:40 AM EST ?? With: Aleah Zhao NP Where: [facility] Plastic Surgery [address] [place] [address]- You Need to Schedule the Following Appointments Follow Up with??Sekou Watson When?? Where: [address] [place] [address] [address] [facility] [place] [address]- Business (1) Follow Up with??Anamaria Tabares When??In 0 days Where: [address] [place] [address]- Business (1) Discharge Medications CYN BAEZ :1980 Visit Date:07/19/2022 Medications: Please continue your medications until treatment is completed or stopped by your provider. Medications not listed below should be discontinued. Discuss any questions related to medications with your provider. What How Much When Instructions Next Dose New Acetaminophen (acetaminophen 325 mg oral capsule) 2 capsule Oral 3 times a day as needed for as needed for pain Duration: 10 Days Pickup at [facility]/pharmacy #[id number] New Cephalexin (cephalexin monohydrate 500 mg oral capsule) 1 capsule Oral Every 8 hours Duration: 7 Days Pickup at [facility]/pharmacy #0838 New Ibuprofen (ibuprofen 600 mg oral tablet) 1 tab(s) Oral Every 8 hours Duration: 10 Days Pickup at [facility]/pharmacy #0838 New Oxycodone (oxyCODONE 5 mg oral tablet) 1 tab(s) Oral Every 6 hours as needed for as needed for pain Duration: 3 Days Pickup at [facility]/pharmacy #0838 [id number] [address] [place], [place] [id number] [phone] Allergies (NKA means No Known Allergies) Pollen??(congestion) sulfADIAZINE??(full body rash) Common Emergency Awareness Tips IS IT A STROKE? Act FAST and Check for these signs: FACE Does the face look uneven? ARM Does one arm drift down? SPEECH Does their speech sound strange? TIME Call at any sign of stroke ?? Heart Attack Signs Chest discomfort: Most heart attacks involve discomfort in the center of the chest and lasts more than a few minutes, or goes away and comes back. It can feel like uncomfortable pressure, squeezing, fullness or pain. Discomfort in upper body: Symptoms can include pain or discomfort in one or both arms, back, neck, jaw or stomach. Shortness of breath: With or without discomfort. Other signs: Breaking out in a cold sweat, nausea, or lightheaded. Remember, MINUTES DO MATTER. If you experience any of these heart attack warning signs, call to get immediate medical attention! ?? Smoking can increase your chances of developing chronic health problems and can cause harmful effects to other family members in your house. If you smoke, you are strongly encouraged to quit. Please call [facility] [employer] Link at [phone] or [phone] ([phone]) or log in to [email or web address] for referrals to smoking cessation programs. ?? The National Suicide Prevention Hotline is available 04/04 if you or someone you know needs to find a reason to keep living. By calling 2-158-589-Event 38 [employer] (1713) you'll be connected to a skilled, trained counselor at a crisis center in your area. INPATIENT DISCHARGE INSTRUCTIONS SIGNATURE PAGE CYN BAEZ Location:[facility] Registration Date and Time:07/19/2022 11:55 EST Primary Care Physician: Anamaria Tabares MD, CYN PURCELL, have received the above patient education materials/instructions and have verbalized understanding. If ambulance or transport services are being used I further acknowledge being given a choice of service. ?? If you need to contact me, please call me at this number: . Patient/Color Maker Name: Patient/Color Maker Signature: Relationship to Patient: Witness Name/Signature: Date: * Sarika Armstrong RN: PERFORM, SIGN, VERIFY Event Display: Patient Education Handout Authored Date: * Sarika Armstrong RN: PERFORM Event Display: Patient Education Leaflets Authored Date: Surgery Medical Daystay Surgical Overnight Discharge Instructions ?? 295 Medical Daystay/Surgical Overnight Discharge Instructions ? Since your coordination and judgment may be altered by medication and/or anesthesia, a responsible adult must drive you home from the hospital. ? If you have received medication for pain or sedation while under our care, you should not drive, operate machinery, drink alcohol, or sign any legal documents for 24 hours.?? You should have someone with you at home tonight. ? Remain at home the day of discharge.?? You may be up and about unless otherwise instructed by your physician. ? You may resume your daily prescription medication schedule.?? Any depressant medication should be avoided for 24 hours unless otherwise instructed by your surgeon or anesthesiologist. ? Call your physician for a follow-up appointment.? If you experience unusual or severe pain not relied by your pain medication, excessive bleedingor drainage, persistent nausea and vomiting, excessive swelling or redness, foul odor from incisionsite or fever over 100.6F, you need to call your physician. ? A follow-up phone call by a nurse will be made the day after your procedure.?? If you have stayed with us over night, you will not be receiving a follow-up phone call. ? Nausea and vomiting are a common side effect of prescription pain medication.?? We recommend that pills are not taken on an empty stomach.?? While taking any prescription pain medication you should not drive or drink alcohol. ? Patient Care team information Care Team Personnel Name: Anamaria Tabares MD Position: [facility] Physician (General Medicine) Member Role: PCP Address: Address: [address] [place] [address]- Care Team Related Persons Name: ADELAIDE BAEZ Address: [address] [address]
--- OUTSIDE RECORDS SUMMARY | 2023-04-20 07:52 | XMS_ITS | Continuity of Care Document ---
Author Name Unknown Organization [facility] Address [address] [place] [address] [address] [place] [address]- Care Team Providers Care Product Marketing Consultant Name Role Phone Rayshawn DUEÑAS, Anamaria Primary Care Physician [phone] Encounter [facility] [place] Date(s): 03/23/22 - 03/30/22 [facility] [address] [place] [address] Drive [address] [place], [place] [address] Attending Physician: Pavel CUETO, Aleah Gomez Referring Physician: Juani Collins Allergies, Adverse Reactions, Alerts Substance Reaction Severity Status sulfADIAZINE full body rash Active Pollen congestion Active Problem List Condition Effective Dates Status Health Status Inform ant COVID-19(Confirmed) 1 02/26/22 Active 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, estrogen receptor positive(Confirmed) 09/2021 Active 1Problem added by Discern Expert Vital Signs Most recent to oldest [Reference Range]: 1 Height 174.7 cm (03/23/22 10:13 AM) Temperature [96.8-100.4 DegF] 96.7 DegF *L* (03/23/22 10:13 AM) Temperature Route Temporal (03/23/22 10:13 AM) Social History Social History Type Response Smoking Status Never (less than 100 in lifetime) entered on: 10/27/21 Sex Medical Equipment Implanted Date:11/18/21Target Site:Chest Description Quantity MRI Company Model MESH ALLOMAX HUMAN 16X20 - B JULES ([id number]) 1 Bard Unknown MARY:No Information Assigning Authority: FDA MESH ALLOMAX HUMAN 16X20 - B JULES ([id number]) 1 Bard Unknown MARY:No Information Assigning Authority: FDA IMPLANT BREAST MODPRO XTRA 3 25 - MNTR ([id number]) 1 Chadwick Carlos Unknown MARY:No Information Assigning Authority: FDA IMPLANT BREAST MODPRO XTRA 3 25 - MNTR ([id number]) 1 Chadwick Carlos Unknown MARY:No Information Assigning Authority: FDA
--- OUTSIDE RECORDS SUMMARY | 2023-04-20 07:52 | XMS_ITS | Continuity of Care Document ---
Author Name Unknown Organization [facility] Address [address] [place] [address]- Care Team Providers Care Banquet Waiter/Waitress Name Role Phone Anamaria Tabares MD Primary Care Physician [phone] [facility] [place] Date(s): 10/16/21 - 03/15/22 [facility] [address] [place] [address]- Discharge Disposition: A-D/C Home Attending Physician: Effie Maldonado MD Admitting Physician: Sandro DUEÑAS, James Roth Referring Physician: Gracie Chang MD Allergies, Adverse Reactions, Alerts Substance Reaction Severity Status sulfADIAZINE full body rash Active Pollen congestion Active Problem List Condition Effective Dates Status Health Status Inform ant COVID-19(Confirmed) 1 02/26/22 Active 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, estrogen receptor positive(Confirmed) 09/2021 Active 1Problem added by Discern Expert Vital Signs Most recent to oldest [Reference Range]: 1 2 3 Height 174.7 cm (01/13/22 10:28 AM) 174.7 cm (12/10/21 1:59 PM) 176.5 cm (12/10/21 1:13 PM) Weight 75.0 kg (01/13/22 10:28 AM) 73.0 kg (12/10/21 1:59 PM) 73.2 kg (12/10/21 1:13 PM) Pulse Rate [55-90 bpm] 73 bpm (01/13/22 10:28 AM) 90 bpm (12/10/21 1:59 PM) 101 bpm *H* (12/10/21 1:13 PM) Body Mass Index [18.5-24.99] 24.57 (01/13/22 10:28 AM) 23.92 (12/10/21 1:59 PM) 23.5 (12/10/21 1:13 PM) Blood Pressure [90-138/55-84 mm Hg] 134/85mm Hg (01/13/22 10:28 AM) 112/78mm Hg (12/10/21 1:59 PM) 146/83mm Hg *H* (12/10/21 1:13 PM) Temperature [96.8-100.4 DegF] 97.4 DegF (01/13/22 10:28 AM) 98.3 DegF (12/10/21 1:59 PM) 98.3 DegF (12/10/21 1:13 PM) Blood pressure sites Arm, left (01/13/22 10:28 AM) Arm, right (12/10/21 1:59 PM) Arm, left (12/10/21 1:13 PM) Temperature Route Temporal (01/13/22 10:28 AM) Temporal (12/10/21 1:59 PM) Temporal (12/10/21 1:13 PM) Dry Weight 75.0 kg (01/13/22 10:28 AM) 73.0 kg (12/10/21 1:59 PM) 73.2 kg (12/10/21 1:13 PM) Weight Obtained Via Standing scale (01/13/22 10:28 AM) Standing scale (12/10/21 1:59 PM) Standing scale (12/10/21 1:13 PM) Dry Weight Obtained Via Standing scale (01/13/22 10:28 AM) Standing scale (12/10/21 1:59 PM) Standing scale (12/10/21 1:13 PM) Social History Social History Type Response Smoking Status Never (less than 100 in lifetime) entered on: 10/27/21 Sex Medical Equipment Implanted Date:11/18/21Target Site:Chest Description Quantity MRI Company Model MESH ALLOMAX HUMAN 16X20 - B JULES ([id number]) 1 Bard Unknown MARY:No Information Assigning Authority: FDA MESH ALLOMAX HUMAN 16X20 - B JULES ([id number]) 1 Bard Unknown MARY:No Information Assigning Authority: FDA IMPLANT BREAST MODPRO XTRA 3 25 - MNTR ([id number]) 1 Per[place]o Unknown MARY:No Information Assigning Authority: FDA IMPLANT BREAST MODPRO XTRA 3 25 - MNTR ([id number]) 1 Bailey Carlos Unknown MARY:No Information Assigning Authority: FDA
--- OUTSIDE RECORDS SUMMARY | 2023-04-20 07:52 | XMS_ITS | Continuity of Care Document ---
Author Name Unknown Organization [facility] Address [address] [place] [address]- Care Team Providers Care Industrial Services Worker Name Role Phone Anamaria Tabares MD Primary Care Physician [phone] Encounter [facility] [place] Date(s): 05/10/22 - 11/29/22 [facility] [address] [place] [address]- Discharge Disposition: A-D/C Home Attending Physician: James Jo MD Admitting Physician: James Jo MD Referring Physician: Gracie Chang MD Allergies, Adverse Reactions, Alerts Substance Reaction Severity Status sulfADIAZINE full body rash Active Pollen congestion Active Medications benadryl elixir 4 oz; lidocaine viscous 2% 100 ml; mylanta or maalox 8 oz; benadryl elixir 4 oz; lidocaine viscous 2% 100 ml; mylanta or maalox 8 oz;, See Instructions, # 460mL, Refills 5, Tot. Refills 5, Maintenance, 1-2 tsp q 2-4 hrs prn. Take 5 min prior to swallowing food. Shake well before use and refrigerate unused... Start Date: 09/08/22 Status: Ordered mometasone 0.1% topical cream 1 application, Topically, 2 times a day, for 30 days, Apply thin film twice daily to treatment areastarting on the first day of radiation and continuing for at least 2 weeks after completion of treatment., # 45 Gm, 2 Refills, Acute 12/21/22 9:20:00 E... Start Date: 09/22/22 Stop Date: 12/21/22 Status: Ordered Problem List Condition Confirmation Course Effective Dates Status Health St [facility] Informant COVID-19 1 Confirmed 02/26/22 Active Carcinoma of lower-outer quadrant of left breast in female, estrogen receptor positive Confirmed 09/2021 Active 1Problem added by Discern Expert Vital Signs Most recent to oldest [Reference Range]: 1 2 Height 175.2 cm (07/27/22 8:06 AM) 174.7 cm (06/18/22 1:02 PM) Weight 73.2 kg (07/27/22 8:06 AM) 71.8 kg (06/18/22 1:02 PM) Oxygen Saturation [94-100 %] 100 % (07/27/22 8:06 AM) 100 % (06/18/22 1:02 PM) Pulse Rate [55-90 bpm] 83 bpm (07/27/22 8:06 AM) 72 bpm (06/18/22 1:02 PM) Body Mass Index [18.5-24.99 kg/m2] 23.85 kg/m2 (07/27/22 8:06 AM) 23.53 kg/m2 (06/18/22 1:02 PM) Blood Pressure [90-138/55-84 mm Hg] 110/ 79mm Hg (07/27/22 8:06 AM) 129/86mm Hg (06/18/22 1:02 PM) Temperature [96.8-100.4 DegF] 97.8 DegF (07/27/22 8:06 AM) 97.0 DegF (06/18/22 1:02 PM) Mode of Delivery (Oxygen) Room air (07/27/22 8:06 AM) Blood pressure sites Arm, right (07/27/22 8:06 AM) Arm, right (06/18/22 1:02 PM) Temperature Route Temporal (07/27/22 8:06 AM) Temporal (06/18/22 1:02 PM) Dry Weight 73.2 kg (07/27/22 8:06 AM) 71.8 kg (06/18/22 1:02 PM) Weight Obtained Via Standing scale (07/27/22 8:06 AM) Standing scale (06/18/22 1:02 PM) Dry Weight Obtained Via Standing scale (07/27/22 8:06 AM) Standing scale (06/18/22 1:02 PM) Social History Social History Type Response Smoking Status Never (less than 100 in lifetime) entered on: 10/27/21 Sex Implantable Device List Procedure Provider Procedure Date Device Type Site Reconstruction Breast with Permanent Sekou Samuel MD 11/18/21 Unknown Chest Device Identifier Serial Number Lot or Batch Number Manufacturing Date Expiration Date Distinct Identification Code MRI Safety Implantable Status Assigning Authority Unknown [id number] Unknown 07/30/26 Unknown Unknown Active Unknown Procedure Provider Procedure Date Device Type Site Reconstruction Breast with Permanent Sekou Samuel MD 11/18/21 Unknown Chest Device Identifier Serial Number Lot or Batch Number Manufacturing Date Expiration Date Distinct Identification Code MRI Safety Implantable Status Assigning Authority Unknown [id number] Unknown 05/05/26 Unknown Unknown Active Unknown Procedure Provider Procedure Date Device Type Site Reconstruction Breast with Permanent Sekou Samuel MD 11/18/21 Unknown Chest Device Identifier Serial Number Lot or Batch Number Manufacturing Date Expiration Date Distinct Identification Code MRI Safety Implantable Status Assigning Authority Unknown [id number] Unknown 02/09/26 Unknown Unknown Active Unknown Procedure Provider Procedure Date Device Type Site Reconstruction Breast with Permanent Sekou Samuel MD 11/18/21 Unknown Chest Device Identifier Serial Number Lot or Batch Number Manufacturing Date Expiration Date Distinct Identification Code MRI Safety Implantable Status Assigning Authority Unknown [id number] Unknown 02/09/26 Unknown Unknown Active Unknown Patient Care team information Care Team Personnel Name: Anamaria Tabares MD Position: [facility] Physician (General Medicine) Member Role: PCP Address: Address: [address] [place] [address]- Care Team Related Persons Name: ADELAIDE BAEZ Address: home [address] [place] [address]
--- OUTSIDE RECORDS SUMMARY | 2023-04-20 07:52 | XMS_ITS | Continuity of Care Document ---
Author Name Unknown Organization [facility] Address [address] [place] [address] [address] [place] [address]- Care Team Providers Care Train Inspector Name Role Phone Anamaria Tabares MD Primary Care Physician [phone] Encounter [facility] [place] Date(s): 03/01/22 - 03/08/22 [facility] [address] [place] [address] Drive [address] [place], [place] [address] Attending Physician: Sekou Watson MD Allergies, Adverse Reactions, Alerts Substance Reaction Severity Status sulfADIAZINE full body rash Active Pollen congestion Active Medications acetaminophen 325 mg oral capsule 1 capsule = 325 mg, By Mouth, 4 times a day, PRN as needed for pain, for 10 days, # 80 capsule, 0 Refills, Acute 03/15/22 9:21:00 EDT, 03/05/22 9:21:00 EDT, Capsule, [facility] #[id number], Partial fill upon patient request if the prescription is... Start Date: 03/05/22 Stop Date: 03/15/22 Status: Ordered doxycycline hyclate 100 mg oral enteric coated tablet 1 tablet = 100 mg, By Mouth, 2 times a day, for 10 days, # 20 tablet, 0 Refills, Acute 03/11/22 9:34:00 EDT, 03/01/22 9:34:00 EDT, CR Tablet, [facility] #[id number], Partial fill upon patient request if the prescription is for a schedule II opioi... Start Date: 03/01/22 Stop Date: 03/11/22 Status: Ordered ibuprofen 600 mg oral tablet 600 mg, 1, tablet, By Mouth, Every 8 hours, for 10 days, # 30 tablet, Refills 0, Tot. Refills 0, Acute 03/15/22 9:21:00 EDT, 03/05/22 9:21:00 EDT, Route to Pharmacy Electronically, [facility] #[id number], Partial fill upon patient request if the... Start Date: 03/05/22 Stop Date: 03/15/22 Status: Ordered levoFLOXacin 750 mg oral tablet 1 tablet = 750 mg, By Mouth, Every 24 hours, for 10 days, # 10 tablet, 0 Refills, Acute 03/11/22 16:07:00 EDT, 03/01/22 16:07:00 EDT, Tablet, [facility] #[id number], Partial fill upon patient request if the prescription is for a schedule II opioi... Start Date: 03/01/22 Stop Date: 03/11/22 Status: Ordered Problem List Condition Effective Dates Status Health Status Inform ant COVID-19(Confirmed) 1 02/26/22 Active 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, estrogen receptor positive(Confirmed) 09/2021 Active 1Problem added by Discern Expert Vital Signs Most recent to oldest [Reference Range]: 1 Height 174.7 cm (03/01/22 3:39 PM) Pulse Rate [55-90 bpm] 99 bpm *H* (03/01/22 3:39 PM) Blood Pressure [90-138/55-84 mm Hg] 126/ 77mm Hg (03/01/22 3:39 PM) Respiratory Rate [16-30 br/min] 18 br/mi n (03/01/22 3:39 PM) Temperature [96.8-100.4 DegF] 98.9 DegF (03/01/22 3:39 PM) Blood pressure sites Arm, left (03/01/22 3:39 PM) Temperature Route Temporal (03/01/22 3:39 PM) Social History Social History Type Response Smoking Status Never (less than 100 in lifetime) entered on: 10/27/21 Sex Medical Equipment Implanted Date:11/18/21Target Site:Chest Description Quantity MRI Company Model MESH ALLOMAX HUMAN 16X20 - B JULES ([id number]) 1 Bard Unknown MARY:No Information Assigning Authority: FDA MESH ALLOMAX HUMAN 16X20 - B JULES ([id number]) 1 Bard Unknown MARY:No Information Assigning Authority: FDA IMPLANT BREAST MODPRO XTRA 3 25 - MNTR ([id number]) 1 Llewellyn Carlos Unknown MARY:No Information Assigning Authority: FDA IMPLANT BREAST MODPRO XTRA 3 25 - MNTR ([id number]) 1 [place] Carlos Unknown MARY:No Information Assigning Authority: FDA
--- OUTSIDE RECORDS SUMMARY | 2023-04-20 07:52 | XMS_ITS | Continuity of Care Document ---
Author Name Unknown Organization [facility] Address [address] [place] [address] [address] [place] [address]- Care Team Providers Care Rod Machine Operator Name Role Phone Anamaria Tabares MD Primary Care Physician [phone] Encounter [facility] [place] Date(s): 09/03/22 - 10/03/22 [facility] [address] [place] [address] Drive [address] [place] [address]- Attending Physician: Admtr, Aida Admitting Physician: Admtr, Ar8 Referring Physician: Admtr, Ar8 Allergies, Adverse Reactions, Alerts Substance Reaction Severity [...] 09/2021 Active 1Problem added by Discern Expert Social History Social History Type Response Smoking Status Never (less than 100 in lifetime) entered on: 10/27/21 Sex Implantable Device List Procedure Provider Procedure Date Device Type Site Reconstruction Breast with Permanent Sekou Samuel MD 11/18/21 Unknown Chest Device Identifier Serial Number Lot or Batch Number Manufacturing Date Expiration Date Distinct Identification Code MRI Safety Implantable Status Assigning Authority Unknown [id number] Unknown 07/30/26 Unknown Unknown Active Unknown Procedure Provider Procedure Date Device Type Site Reconstruction Breast with Permanent Sekou Samuel MD 11/18/21 Unknown Chest Device Identifier Serial Number Lot or Batch Number Manufacturing Date Expiration Date Distinct Identification Code MRI Safety Implantable Status Assigning Authority Unknown [id number] Unknown 05/05/26 Unknown Unknown Active Unknown Procedure Provider Procedure Date Device Type Site Reconstruction Breast with Permanent Sekou Samuel MD 11/18/21 Unknown Chest Device Identifier Serial Number Lot or Batch Number Manufacturing Date Expiration Date Distinct Identification Code MRI Safety Implantable Status Assigning Authority Unknown [id number] Unknown 02/09/26 Unknown Unknown Active Unknown Procedure Provider Procedure Date Device Type Site Reconstruction Breast with Permanent Sekou Samuel MD 11/18/21 Unknown Chest Device Identifier Serial Number Lot or Batch Number Manufacturing Date Expiration Date Distinct Identification Code MRI Safety Implantable Status Assigning Authority Unknown [id number] 65 Unknown 02/09/26 Unknown Unknown Active Unknown Patient Care team information Care Team Personnel Name: Anamaria Tabares MD Position: [facility] Physician (General Medicine) Member Role: PCP Address: Address: [address] [place] [address]- Care Team Related Persons Name: ADELAIDE BAEZ Address: home [address] [place] [address]
--- OUTSIDE RECORDS SUMMARY | 2023-04-20 07:52 | XMS_ITS | Continuity of Care Document ---
Author Name Unknown Organization [facility] Address [address] [place] [address]- Care Team Providers Care Maitre D' Name Role Phone Anamaria Tabares MD Primary Care Physician Encounter 11/19/21 - 11/30/21 [facility] [address] [place] [address]- Discharge Disposition: CLIENT NO LONGER REQUIRES SKILLED CARE Allergies, Adverse Reactions, Alerts Substance Reaction Severity Status sulfADIAZINE full body rash Active Pollen Active Medications lidocaine 4% topical cream 1 application, Topically, Once, Apply to nipple areola 1 hour before arriving for surgery, cover with saran wrap., # 5 Gm, 0 Refills, Soft Stop, 10/27/21 13:06:00 EST, Cream, [facility] #[id number], Partial fill upon patient request if the prescr... Start Date: 10/27/21 Status: Ordered oxyCODONE 5 mg oral tablet 5 mg, 1, tablet, By Mouth, Every 6 hours, PRN, # 18 tablet, Refills 0, Tot. Refills 0, Maintenance,Pain , Severe, 11/18/21 8:30:00 EST, Route to Pharmacy Electronically, [facility] #[id number],Partial fill upon patient request if the prescripti... Start Date: 11/18/21 Status: Ordered Problem List Condition Effective Dates Status Health Status Inform ant 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, estrogen receptor positive(Confirmed) 09/2021 Active Social History Social History Type Response Smoking Status Never (less than 100 in lifetime) entered on: 10/27/21 Sex Medical Equipment Implanted Date:11/18/21Target Site:Chest Description Quantity MRI Company Model MESH ALLOMAX HUMAN 16X20 - B JULES ([id number]) 1 Bard Unknown MARY:No Information Assigning Authority: [facility] MESH ALLOMAX HUMAN 16X20 - B JULES ([id number]) 1 Bard Unknown MARY:No Information Assigning Authority: FDA IMPLANT BREAST MODPRO XTRA 3 25 - MNTR ([id number]) 1 [place] Carlos Unknown MARY:No Information Assigning Authority: FDA IMPLANT BREAST MODPRO XTRA 3 25 - MNTR ([id number]) 1 [place] Carlos Unknown MARY:No Information Assigning Authority: FDA
--- OUTSIDE RECORDS SUMMARY | 2023-04-20 07:52 | XMS_ITS | Continuity of Care Document ---
Author Name Unknown Organization [facility] ter Address [address] [place] [address]- Care Team Providers Care Baseball Glove Shaper Name Role Phone Anamaria Tabares MD Primary Care Physician [phone] Encounter [facility] [place] Date(s): 03/05/22 - 03/05/[address] [address] Discharge Disposition: A-D/C Home Attending Physician: Sekou [...] 03/15/22 9:21:00 EDT, 03/05/22 9:21:00 EDT, Capsule, [facility] #[id number], Partial fill upon patient request if the prescription is... Start Date: 03/05/22 Stop Date: 03/15/22 Status: Ordered doxycycline hyclate 100 mg oral enteric coated tablet 1 tablet = 100 mg, By Mouth, 2 times a day, for 10 days, # 20 tablet, 0 Refills, Acute 03/11/22 9:34:00 EDT, 03/01/22 9:34:00 EDT, CR Tablet, [id number], Partial fill upon patient request if the prescription is for a schedule II opioi... Start Date: 03/01/22 Stop Date: 03/11/22 Status: Ordered ibuprofen 600 mg oral tablet 600 mg, 1, tablet, By Mouth, Every 8 hours, for 10 days, # 30 tablet, Refills 0, Tot. Refills 0, Acute 03/15/22 9:21:00 EDT, 03/05/22 9:21:00 EDT, Route to Pharmacy Electronically, [facility] #[id number], Partial fill upon patient request if the... Start Date: 03/05/22 Stop Date: 03/15/22 Status: Ordered levoFLOXacin 750 mg oral tablet 1 tablet = 750 mg, By Mouth, Every 24 hours, for 10 days, # 10 tablet, 0 Refills, Acute 03/11/22 16:07:00 EDT, 03/01/22 16:07:00 EDT, Tablet, [facility] #[id number], Partial fill upon patient request if the prescription is for a schedule II opioi... Start Date: 03/01/22 Stop Date: 03/11/22 Status: Ordered oxyCODONE 5 mg oral tablet 5 mg, 1, tablet, By Mouth, Every 6 hours, PRN, for 3 days, # 12 tablet, Refills 0, Tot. Refills 0, Acute 03/08/22 9:20:00 EDT, as needed for pain, 03/05/22 9:20:00 EDT, Route to Pharmacy Electronically, [id number], Partial fill upon p... Start Date: 03/05/22 Stop Date: 03/08/22 Status: Ordered OxyCODONE IR Tablet 5 mg, Tablet, By Mouth, Every 4 hours, in PACU ONLY, if patient can tolerate PO, PRN for Pain , Mild, Routine, 03/05/22 8:52:00 EDT Start Date: 03/05/22 Stop Date: 03/05/22 Status: Discontinued Problem List Condition Effective Dates Status Health Status Inform ant COVID-19(Confirmed) 1 02/26/22 Active 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, estrogen receptor positive(Confirmed) 09/2021 Active 1Problem added by Discern Expert Results Orders for Microbiology Reports Name Date Anaerobic Culture (ANAEROBIC CULTURE) Sterile Body Fluid Culture W/ Gram Smear (STERILE FLUID CULT.) 03/05/22 Microbiology Reports TEST:Anaerobic Culture STATUS:Unauthenticated BODY SITE: SOURCE:FLUID COLLECTED DATE/TIME:03/05/22 8:15 AM Anaerobic Culture SPECIMEN DESCRIPTION : FLUID LEFT BREAST ABCESS ESWAB SPECIAL REQUESTS : OR SPECIMEN REPORT STATUS : PRELIMINARY REPORT TEST:Sterile Fluid Culture STATUS:Unauthenticated BODY SITE: SOURCE:FLUID COLLECTED DATE/TIME:03/05/22 8:15 AM Sterile Fluid Culture SPECIMEN DESCRIPTION : FLUID LEFT BREAST ABCESS ESWAB SPECIAL REQUESTS : OR SPECIMEN GRAM STAIN : 1+ POLYMORPHONUCLEAR LEUKOCYTES NO ORGANISMS SEEN REPORT STATUS : PRELIMINARY REPORT Vital Signs Most recent to oldest [Reference Range]: 1 2 3 Height 174.7 cm (03/05/22 6:17 AM) 174.7 cm (03/04/22 11:19 AM) Weight 72.6 kg (03/05/22 6:17 AM) 72.6 kg (03/04/22 11:19 AM) Oxygen Saturation [94-100 %] 96 % (03/05/22 10:30 AM) 95 % (03/05/22 10:15 AM) 94 % (03/05/22 10:00 AM) Pulse Rate [55-90 bpm] 89 bpm (03/05/22 6:17 AM) Body Mass Index [18.5-24.99] 23.79 (03/05/22 6:17 AM) 23.79 (03/04/22 11:19 AM) Blood Pressure [90-138/55-84 mm Hg] 113/64mm Hg (03/05/22 10:30 AM) 113/64mm Hg (03/05/22 10:15 AM) 98/56mm Hg (03/05/22 10:00 AM) Respiratory Rate [16-30 br/min] 17 br/min (03/05/22 10:30 AM) 21 br/min (03/05/22 10:15 AM) 16 br/min (03/05/22 10:13 AM) Temperature [96.8-100.4 DegF] 97.6 DegF (03/05/22 10:30 AM) 97.6 DegF (03/05/22 9:15 AM) 98.1 DegF (03/05/22 6:17 AM) Liters per Minute 5 L/min (03/05/22 9:15 AM) Mode of Delivery (Oxygen) Room air (03/05/22 9:30 AM) Simple face mask (03/05/22 9:15 AM) Room air (03/05/22 6:17 AM) Blood pressure sites Arm, right (03/05/22 9:15 AM) Arm, right (03/05/22 6:17 AM) Temperature Route Temporal (03/05/22 10:30 AM) Temporal (03/05/22 9:15 AM) Temporal (03/05/22 6:17 AM) Dry Weight 72.6 kg (03/04/22 11:19 AM) Weight Obtained Via Patient/family state d (03/04/22 11:19 AM) Dry Weight Obtained Via Patient/family s tated (03/04/22 11:19 AM) Social History Social History Type Response Smoking Status Never (less than 100 in lifetime) entered on: 10/27/21 Sex Medical Equipment Implanted Date:11/18/21Target Site:Chest Description Quantity MRI Company Model MESH ALLOMAX HUMAN 16X20 - B JULES ([id number]) 1 Bard Unknown MARY:No Information Assigning Authority: [facility] MESH ALLOMAX HUMAN 16X20 - B JULES ([id number]) 1 Bard Unknown MARY:No Information Assigning Authority: FDA IMPLANT BREAST MODPRO XTRA 3 25 - MNTR ([id number]) 1 [place] [employer] Unknown MARY:No Information Assigning Authority: FDA IMPLANT BREAST MODPRO XTRA 3 25 - MNTR ([id number]) 1 [employer] Unknown MARY:No Information Assigning Authority: FDA
--- OUTSIDE RECORDS SUMMARY | 2023-04-20 07:52 | XMS_ITS | Continuity of Care Document ---
Author Name Unknown Organization [facility] Address Unknown Care Team Providers Care Early Childhood Coordinator Name Role Phone Rayshawn DUEÑAS, Anamaria Primary Care Physician Encounter [facility] Date(s): 01/27/22 - 02/26/22 [facility] Allergies, Adverse Reactions, Alerts Substance Reaction Severity Status sulfADIAZINE full body rash Active Pollen Active Problem List Condition Effective Dates Status [...] MESH ALLOMAX HUMAN 16X20 - B JULES ([id number]) 1 Bard Unknown MARY:No Information Assigning Authority: FDA MESH ALLOMAX HUMAN 16X20 - B JULES ([id number]) 1 Bard Unknown MARY:No Information Assigning Authority: FDA IMPLANT BREAST MODPRO XTRA 3 25 - MNTR ([id number]) 1 [place] Carlos Unknown MARY:No Information Assigning Authority: FDA IMPLANT BREAST MODPRO XTRA 3 25 - MNTR ([id number]) 1 [place] Carlos Unknown MARY:No Information Assigning Authority: FDA
--- OUTSIDE RECORDS SUMMARY | 2023-04-20 07:52 | XMS_ITS | Continuity of Care Document ---
Author Name Unknown Organization [facility] Address [address] [place] [address] [address] [place] [address]- Care Team Providers Care Animal Caretaker Name Role Phone Anamaria Tabares MD Primary Care Physician Encounter [facility] [place] [place] Date(s): 11/30/21 - 12/30/21 [facility] [address] [place] [address] Drive [address] [place], [place] [address] Allergies, Adverse Reactions, Alerts Substance Reaction Severity Status sulfADIAZINE full body rash Active Pollen Active Medications levoFLOXacin 500 mg oral tablet 1 tablet = 500 mg, By Mouth, Every 24 hours, for 10 days, # 10 tablet, 0 Refills, Acute 01/01/22 15:29:00 EDT, 12/22/21 15:29:00 EDT, Tablet, [facility] #[id number], Partial fill upon patient request if the prescription is for a schedule II opioi... Start Date: 12/22/21 Stop Date: 01/01/22 Status: Ordered levoFLOXacin 750 mg oral tablet 1 tablet = 750 mg, By Mouth, Every 24 hours, for 7 days, # 7 tablet, 0 Refills, Acute 01/05/22 14:26:00 EDT, 12/29/21 14:26:00 EDT, Tablet, [facility] #[id number], Partial fill upon patient request if the prescription is for a schedule II opioid... Start Date: 12/29/21 Stop Date: 01/05/22 Status: Ordered Problem List Condition Effective Dates Status Health Status Inform ant 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, estrogen receptor positive(Confirmed) 09/2021 Active Social History Social History Type Response Smoking Status Never (less than 100 in lifetime) entered on: 10/27/21 Sex Medical Equipment Implanted Date:11/18/21Target Site:Chest Description Quantity MRI Company Model MESH ALLOMAX HUMAN 16X20 - B JULES ([id number]) 1 Bard Unknown MARY:No Information Assigning Authority: FDA MESH ALLOMAX HUMAN 16X20 - B JULES ([id number]) 1 Bard Unknown MARY:No Information Assigning Authority: FDA IMPLANT BREAST MODPRO XTRA 3 25 - MNTR ([id number]) 1 [email or web address] Unknown MARY:No Information Assigning Authority: FDA IMPLANT BREAST MODPRO XTRA 3 25 - MNTR ([id number]) 1 [email or web address] Unknown MARY:No Information Assigning Authority: FDA
--- OUTSIDE RECORDS SUMMARY | 2023-04-20 07:52 | XMS_ITS | Continuity of Care Document ---
Author Name Unknown Organization [facility] Plastic Nan shanell Address [address] [place] [address] [address] [place] [address]- Care Team Providers Care Flume Worker Name Role Phone Anamaria Tabares MD Primary Care Physician Encounter [facility] [place] Date(s): 12/22/21 - 12/29/21 [facility] Plastic Surgery [address] [place] [address] Drive [address] [place], [place] [address] Attending Physician: Sekou Watson MD Allergies, Adverse Reactions, Alerts Substance Reaction Severity Status sulfADIAZINE full body rash Active Pollen Active Medications levoFLOXacin 500 mg oral tablet 1 tablet = 500 mg, By Mouth, Every 24 hours, for 10 days, # 10 tablet, 0 Refills, Acute 01/01/22 15:29:00 EDT, 12/22/21 15:29:00 EDT, Tablet, [id number], Partial fill upon patient request if the prescription is for a schedule II opioi... Start Date: 12/22/21 Stop Date: 01/01/22 Status: Ordered levoFLOXacin 750 mg oral tablet 1 tablet = 750 mg, By Mouth, Every 24 hours, for 7 days, # 7 tablet, 0 Refills, Acute 01/05/22 14:26:00 EDT, 12/29/21 14:26:00 EDT, Tablet, [facility][id number], Partial fill upon patient request if the prescription is for a schedule II opioid... Start Date: 12/29/21 Stop Date: 01/05/22 Status: Ordered Problem List Condition Effective Dates Status Health Status Inform ant 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, estrogen receptor positive(Confirmed) 09/2021 Active Vital Signs Most recent to oldest [Reference Range]: 1 Height 174.7 cm (12/22/21 3:03 PM) Weight 72.72 kg (12/22/21 3:03 PM) Body Mass Index [18.5-24.99] 23.83 (12/22/21 3:03 PM) Temperature [96.8-100.4 DegF] 97.8 DegF (12/22/21 3:03 PM) Temperature Route Temporal (12/22/21 3:03 PM) Weight Obtained Via Standing scale (12/22/21 3:03 PM) Social History Social History Type Response Smoking Status Never (less than 100 in lifetime) entered on: 10/27/21 Sex Medical Equipment Implanted Date:11/18/21Target Site:Chest Description Quantity MRI Company Model MESH ALLOMAX HUMAN 16X20 - B JULES ([id number]) 1 Bard Unknown MARY:No Information Assigning Authority: FDA MESH ALLOMAX HUMAN 16X20 - B JULES ([id number]) 1 Bard Unknown MARY:No Information Assigning Authority: FDA IMPLANT BREAST MODPRO XTRA 3 25 - MNTR ([id number]) 1 [place] Carlos Unknown MARY:No Information Assigning Authority: FDA IMPLANT BREAST MODPRO XTRA 3 25 - MNTR ([id number]) 1 [place] Retail Derivatives Trader Unknown MARY:No Information Assigning Authority: FDA
--- OUTSIDE RECORDS SUMMARY | 2023-04-20 07:52 | XMS_ITS | Continuity of Care Document ---
Author Name Unknown Organization [facility] Plastic Nan shanell Address [address] [place] [address] [address] [place] [address]- Care Team Providers Care Sandwich Wrapper Name Role Phone Anamaria Tabares MD Primary Care Physician Encounter [facility] [facility] [id number] Date(s): 03/02/22 - 04/11/22 [facility] Pl[facility] Surgery [address] [place] [address] Drive [address] [place], [place] [address] Attending Physician: Sekou Watson MD Admitting Physician: Sekou Watson MD Referring Physician: Anamaria Tabares MD Allergies, Adverse Reactions, Alerts Substance Reaction [...] MESH ALLOMAX HUMAN 16X20 - B JULES ([id number]) 1 Bard Unknown MARY:No Information Assigning Authority: FDA MESH ALLOMAX HUMAN 16X20 - B JULES ([id number]) 1 Bard Unknown MARY:No Information Assigning Authority: FDA IMPLANT BREAST MODPRO XTRA 3 25 - MNTR ([id number]) 1 [place] Carlos Unknown MARY:No Information Assigning Authority: FDA IMPLANT BREAST MODPRO XTRA 3 25 - MNTR ([id number]) 1 [place] Carlos Unknown MARY:No Information Assigning Authority: FDA
--- OUTSIDE RECORDS SUMMARY | 2023-04-20 07:52 | XMS_ITS | Continuity of Care Document ---
Author Name Unknown Organization [facility] Plastic Nan shanell Address [address] [place] [address] [address] [place] [address]- Care Team Providers Care Chainstitch [place] Name Role Phone Anamaria Tabares MD Primary Care Physician [phone] [place] [facility] [place] 03/02/22 - 05/23/22 [facility] Plastic Surgery [address] [place] [address] Drive [address] [place], [place] [address] Attending Physician: Aleah Zhao NP Allergies, Adverse Reactions, Alerts Substance Reaction Severity [...] MRI Safety Implantable Status Assigning Authority Unknown [id number] Unknown 07/30/26 Unknown Unknown Active Unknown Procedure Provider Procedure Date Device Type Site Reconstruction Breast with Permanent Sekou Samuel MD 11/18/21 Unknown Chest Device Identifier Serial Number Lot or Batch Number Manufacturing Date Expiration Date Distinct Identification Code MRI Safety Implantable Status Assigning Authority Unknown [id number] Unknown 05/05/26 Unknown Unknown Active Unknown Procedure Provider Procedure Date Device Type Site Reconstruction Breast with Permanent Imp Sekou Watson MD 11/18/21 Unknown Chest Device Identifier Serial Number Lot or Batch Number Manufacturing Date Expiration Date Distinct Identification Code MRI Safety Implantable Status Assigning Authority Unknown [id number] Unknown 02/09/26 Unknown Unknown Active Unknown Procedure Provider Procedure Date Device Type Site Reconstruction Breast with Permanent Imp Walter DUEÑAS, Sekou Perez 11/18/21 Unknown Chest Device Identifier Serial Number Lot or Batch Number Manufacturing Date Expiration Date Distinct Identification Code MRI Safety Implantable Status Assigning Authority Unknown [id number] 65 Unknown 02/09/26 Unknown Unknown Active Unknown Care Team Personnel Name: Anamaria Tabares MD Address: [address] [place] [address]
--- OUTSIDE RECORDS SUMMARY | 2023-04-20 07:52 | XMS_ITS | Continuity of Care Document ---
Author Name Unknown Organization [facility] Address [address] [place] [address]- Care Team Providers Care Tool Shaper Set Up Operator Name Role Phone Anamaria Tabares MD Primary Care Physician [phone] Encounter [facility] [place] Date(s): 11/04/21 - 12/04/[address] [address]- Attending Physician: Gracie Chang MD Admitting Physician: Gracie Chang MD Allergies, Adverse Reactions, [...] MESH ALLOMAX HUMAN 16X20 - B JULES ([id number]) 1 Bard Unknown MARY:No Information Assigning Authority: FDA MESH ALLOMAX HUMAN 16X20 - B JULES ([id number]) 1 Bard Unknown MARY:No Information Assigning Authority: FDA IMPLANT BREAST MODPRO XTRA 3 25 - MNTR ([id number]) 1 [place] Carlos Unknown MARY:No Information Assigning Authority: FDA IMPLANT BREAST MODPRO XTRA 3 25 - MNTR ([id number]) 1 [place] Carlos Unknown MAYR:No Information Assigning Authority: FDA
--- OUTSIDE RECORDS SUMMARY | 2023-04-20 07:52 | XMS_ITS | Continuity of Care Document ---
Author Name Unknown Organization [facility] Plastic Nan shanell Address [address] [place] [address] [address] [place] [address]- Care Team Providers Care Sharepoint Analyst Name Role Phone Anamaria Tabares MD Primary Care Physician [place] [facility] 07/20/22 - 07/27/22 [facility] Plastic Surgery [address] [place] [address] Drive [address] [place], [place] [address] Attending Physician: Aleah Zhao NP Allergies, [...] Date: 07/19/22 Stop Date: 07/29/22 Status: Ordered ibuprofen 600 mg oral tablet 600 mg, 1, tablet, By Mouth, Every 8 hours, for 10 days, # 30 tablet, Refills 0, Tot. Refills 0, Acute 07/29/22 16:05:00 EST, 07/19/22 16:05:00 EST, Route to Pharmacy Electronically, [id number], Partial fill upon patient request if the prescri... Start Date: 07/19/22 Stop Date: 07/29/22 Status: Ordered Problem List Condition Confirmation Course Effective Dates Status Health St atus Informant COVID-19 1 Confirmed 02/26/22 Active Carcinoma of lower-outer quadrant of left breast in female, estrogen receptor positive Confirmed 09/2021 Active 1Problem added by Discern Expert Vital Signs Most recent to oldest [Reference Range]: 1 Height 175.2 cm (07/20/22 10:25 AM) Temperature [96.8-100.4 DegF] 98.0 DegF (07/20/22 10:25 AM) Temperature Route Temporal (07/20/22 10:25 AM) Social History Social History Type Response Smoking Status Never (less than 100 in lifetime) entered on: 10/27/21 Sex Implantable Device List Procedure Provider Procedure Date Device Type Site Reconstruction Breast with Permanent Sekou Samuel MD 11/18/21 Unknown Chest Device Identifier Serial Number Lot or Batch Number Manufacturing Date Expiration Date Distinct Identification Code MRI Safety Implantable Status Assigning Authority Unknown [id number] Unknown 07/30/26 Unknown Unknown Active Unknown Procedure Provider Procedure Date Device Type Site Reconstruction Breast with Permanent Imp Sekou Watson MD 11/18/21 Unknown Chest Device Identifier Serial Number Lot or Batch Number Manufacturing Date Expiration Date Distinct Identification Code MRI Safety Implantable Status Assigning Authority Unknown [id number] Unknown 05/05/26 Unknown Unknown Active Unknown Procedure Provider Procedure Date Device Type Site Reconstruction Breast with Permanent Imp Sekou Watson MD 11/18/21 Unknown Chest Device Identifier Serial Number Lot or Batch Number Manufacturing Date Expiration Date Distinct Identification Code MRI Safety Implantable Status Assigning Authority Unknown [id number] 25 Unknown 02/09/26 Unknown Unknown Active Unknown Procedure Provider Procedure Date Device Type Site Reconstruction Breast with Permanent Imp Sekou Watson MD 11/18/21 Unknown Chest Device Identifier Serial Number Lot or Batch Number Manufacturing Date Expiration Date Distinct Identification Code MRI Safety Implantable Status Assigning Authority Unknown [id number] 65 Unknown 02/09/26 Unknown Unknown Active Unknown Patient Care team information Care Team Personnel Name: Anamaria Tabares MD Position: [facility] Physician (General Medicine) Member Role: PCP Address: Address: [address] [place] [address]- Care Team Related Persons Name: ADELAIDE BAEZ Address: home [address] [place] [address]
--- OUTSIDE RECORDS SUMMARY | 2023-04-20 07:52 | XMS_ITS | Continuity of Care Document ---
Author Name Unknown Organization [facility] Plastic Nan shanell Address [address] [place] [address] [address] [place] [address]- Care Team Providers Care Contract Sheltered Workshop Supervisor Name Role Phone Rayshawn DUEÑAS, Anamaria Primary Care Physician [place] [facility] [place] 12/22/21 - 01/21/22 [facility] Plastic Surgery [address] [place] [address] Drive [address] [place], [place] [address] Allergies, Adverse Reactions, Alerts Substance Reaction Severity [...] MESH ALLOMAX HUMAN 16X20 - B JULES ([id number]) 1 Bard Unknown MARY:No Information Assigning Authority: FDA MESH ALLOMAX HUMAN 16X20 - B JULES ([id number]) 1 Bard Unknown MARY:No Information Assigning Authority: FDA IMPLANT BREAST MODPRO XTRA 3 25 - MNTR ([id number]) 1 [place] Carlos Unknown MARY:No Information Assigning Authority: FDA IMPLANT BREAST MODPRO XTRA 3 25 - MNTR ([id number]) 1 [place] Carlos Unknown MARY:No Information Assigning Authority: FDA
--- OUTSIDE RECORDS SUMMARY | 2023-04-20 07:52 | XMS_ITS | Continuity of Care Document ---
Author Name Unknown Organization [facility] Address [address] [place] [address]- Care Team Providers Care Retail Mortgage Banker Name Role Phone Anamaria Tabares MD Primary Care Physician [place] [facility] [place] 05/10/22 - 06/09/22 [facility] [address] [place] [address] Attending Physician: Aida Srtoud Admitting Physician: Aida Stroud Referring Physician: AdmtrAida Allergies, Adverse Reactions, Alerts Substance Reaction Severity Status sulfADIAZINE full body rash Active Pollen congestion Active Problem List Condition Confirmation Course Effective Dates [...] MRI Safety Implantable Status Assigning Authority Unknown [id number] Unknown 07/30/26 Unknown Unknown Active Unknown Procedure Provider Procedure Date Device Type Site Reconstruction Breast with Permanent Imp Sekou Watson MD 11/18/21 Unknown Chest Device Identifier Serial Number Lot or Batch Number Manufacturing Date Expiration Date Distinct Identification Code MRI Safety Implantable Status Assigning Authority Unknown [id number] Unknown 05/05/26 Unknown Unknown Active Unknown Procedure Provider Procedure Date Device Type Site Reconstruction Breast with Permanent Imp Sekou Watson MD 11/18/21 Unknown Chest Device Identifier Serial Number Lot or Batch Number Manufacturing Date Expiration Date Distinct Identification Code MRI Safety Implantable Status Assigning Authority Unknown [id number] 25 Unknown 02/09/26 Unknown Unknown Active Unknown Procedure Provider Procedure Date Device Type Site Reconstruction Breast with Permanent Imp Walter DUEÑAS, Sekou Perez 11/18/21 Unknown Chest Device Identifier Serial Number Lot or Batch Number Manufacturing Date Expiration Date Distinct Identification Code MRI Safety Implantable Status Assigning Authority Unknown [id number] 65 Unknown 02/09/26 Unknown Unknown Active Unknown Patient Care team information Personnel Name: Anamaria Tabares MD Address: Address: [address]
--- OUTSIDE RECORDS SUMMARY | 2023-04-20 07:52 | XMS_ITS | Continuity of Care Document ---
Author Name Unknown Organization [facility] Plastic Ann shanell Address [address] [place] [address] [address] [place] [address]- Care Team Providers Care Edger Automatic Name Role Phone Anamaria Tabares MD Primary Care Physician En[place] [facility] [place] Date(s): 11/19/21 - 11/26/21 [facility] Plastic Surgery [address] [place] [address] Drive [address] [place], [place] [address] Attending Physician: Sekou Watson MD Allergies, Adverse Reactions, Alerts Substance Reaction Severity Status sulfADIAZINE full body rash Active Pollen Active Medications ibuprofen 600 mg oral tablet 600 mg, 1, tablet, By Mouth, Every 6 hours, for 10 days, # 40 tablet, Refills 0, Tot. Refills 0, Acute 11/28/21 8:30:00 EDT, 11/18/21 8:30:00 EST, Route to Pharmacy Electronically, [facility][id number], Partial fill upon patient request if the... Start Date: 11/18/21 Stop Date: 11/28/21 Status: Ordered lidocaine 4% topical cream 1 application, Topically, Once, Apply to nipple areola 1 hour before arriving for surgery, cover with saran wrap., # 5 Gm, 0 Refills, Soft Stop, 10/27/21 13:06:00 EST, Cream, [facility][id number], Partial fill upon patient request if the prescr... Start Date: 10/27/21 Status: Ordered oxyCODONE 5 mg oral tablet 5 mg, 1, tablet, By Mouth, Every 6 hours, PRN, # 18 tablet, Refills 0, Tot. Refills 0, Maintenance,Pain , Severe, 11/18/21 8:30:00 EST, Route to Pharmacy Electronically, [facility] #[id number],Partial fill upon patient request if the prescripti... Start Date: 11/18/21 Status: Ordered Tylenol 8 Hour 650 mg oral tablet, extended release 1 tablet = 650 mg, By Mouth, Every 6 hours, for 10 days, # 40 tablet, 0 Refills, Acute 11/28/21 8:30:00 EDT, 11/18/21 8:30:00 EST, [facility] #[id number], Partial fill upon patient request if the prescription is for a schedule II opioid drug., 17... 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, estrogen receptor positive(Confirmed) 09/2021 Active Social History Social History Type Response Smoking Status Never (less than 100 in lifetime) entered on: 10/27/21 Sex Medical Equipment Implanted Date:11/18/21Target Site:Chest Description Quantity MRI Company Model MESH ALLOMAX HUMAN 16X20 - B JULES ([id number]) 1 Gecko Unknown MARY:No Information Assigning Authority: FDA MESH ALLOMAX HUMAN 16X20 - B JULES ([id number]) 1 Bard Unknown MARY:No Information Assigning Authority: FDA IMPLANT BREAST MODPRO XTRA 3 25 - MNTR ([id number]) 1 [facility] Unknown MARY:No Information Assigning Authority: FDA IMPLANT BREAST MODPRO XTRA 3 25 - MNTR ([id number]) 1 [facility] Unknown MARY:No Information Assigning Authority: [facility]
--- OUTSIDE RECORDS SUMMARY | 2023-04-20 07:52 | XMS_ITS | Continuity of Care Document ---
Author Name Unknown Organization [facility] Plastic Nan shanell Address [address] [place] [address] [address] [place] [address]- Care Team Providers Care Technical Support Representative Name Role Phone Anamaria Tabares MD Primary Care Physician [phone] [place] [facility] [place]22 - 08/20/22 [facility] Plastic Surgery [address] [place] [address] Drive [address] [place], [place] [address] Allergies, Adverse Reactions, Alerts Substance Reaction Severity [...] MRI Safety Implantable Status Assigning Authority Unknown [id number] Unknown 07/30/26 Unknown Unknown Active Unknown Procedure Provider Procedure Date Device Type Site Reconstruction Breast with Permanent Sekou Samuel MD 11/18/21 Unknown Chest Device Identifier Serial Number Lot or Batch Number Manufacturing Date Expiration Date Distinct Identification Code MRI Safety Implantable Status Assigning Authority Unknown [id number] Unknown 05/05/26 Unknown Unknown Active Unknown Procedure Provider Procedure Date Device Type Site Reconstruction Breast with Permanent Sekou Samuel MD 11/18/21 Unknown Chest Device Identifier Serial Number Lot or Batch Number Manufacturing Date Expiration Date Distinct Identification Code MRI Safety Implantable Status Assigning Authority Unknown [id number] 25 Unknown 02/09/26 Unknown Unknown Active Unknown Procedure Provider Procedure Date Device Type Site Reconstruction Breast with Permanent Imp Walter DUEÑAS, Sekou Perez 11/18/21 Unknown Chest Device Identifier Serial Number Lot or Batch Number Manufacturing Date Expiration Date Distinct Identification Code MRI Safety Implantable Status Assigning Authority Unknown [id number] 65 Unknown 02/09/26 Unknown Unknown Active Unknown Patient Care team information Care Team Personnel Name: Anamaria Tabares MD Position: [facility] Physician (General Medicine) Member Role: PCP Address: Address: [address] [place] [address]- Care Team Related Persons Name: ADELAIDE BAEZ Address: home [address] [place] [address]
--- OUTSIDE RECORDS SUMMARY | 2023-04-20 07:52 | XMS_ITS | Continuity of Care Document ---
Author Name Unknown Organization [facility] Address [address] [place] [address]- Care Team Providers Care Rail Grinder Name Role Phone Anamaria Tabares MD Primary Care Physician Encounter [facility] [id number] Date(s): 12/31/21 - 01/30/22 [facility] Care [address] [place] [address] Allergies, Adverse Reactions, Alerts Substance Reaction Severity Status sulfADIAZINE full body rash Active Pollen Active Medications doxycycline hyclate 100 mg oral capsule 1 capsule = 100 mg, By Mouth, 2 times a day, for 7 days, # 14 capsule, 0 Refills, Acute 02/03/22 8:49:00 EDT, 01/27/22 8:49:00 EDT, Capsule, [facility] #[id number], Partial fill upon patient request if the prescription is for a schedule II opioid... Start Date: 01/27/22 Stop Date: 02/03/22 Status: Ordered Problem List Condition Effective Dates Status Health Status Inform ant 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, estrogen receptor positive(Confirmed) 09/2021 Active Social History Social History Type Response Smoking Status Never (less than 100 in lifetime) entered on: 10/27/21 Sex Medical Equipment Implanted Date:11/18/21Target Site:Chest Description Quantity MRI Company Model MESH ALLOMAX HUMAN 16X20 - B JULES ([id number]) 1 Bard Unknown MARY:No Information Assigning Authority: FDA MESH ALLOMAX HUMAN 16X20 - B JULES ([id number]) 1 Bard Unknown MARY:No Information Assigning Authority: FDA IMPLANT BREAST MODPRO XTRA 3 25 - MNTR ([id number]) 1 [place] Carlos Unknown MARY:No Information Assigning Authority: FDA IMPLANT BREAST MODPRO XTRA 3 25 - MNTR ([id number]) 1 [place] Carlos Unknown MARY:No Information Assigning Authority: FDA
--- OUTSIDE RECORDS SUMMARY | 2023-04-20 07:52 | XMS_ITS | Continuity of Care Document ---
Author Name Unknown Organization [facility] Address [address] [place] [address]- Care Team Providers Care Rampman Name Role Phone Anamaria Tabares MD Primary Care Physician [phone] [id number] Date(s): 01/13/22 - 02/12/22 [facility] [address] [place] [address] Allergies, Adverse Reactions, Alerts Substance Reaction Severity Status sulfADIAZINE full body rash Active Pollen Active Medications doxycycline hyclate 100 mg oral capsule 1 capsule = 100 mg, By Mouth, 2 times a day, for 7 days, # 14 capsule, 0 Refills, Acute 02/14/22 16:26:00 EDT, 02/07/22 16:26:00 EDT, Capsule, [facility] #[id number], Partial fill upon patient request if the prescription is for a schedule II opio... Start Date: 02/07/22 Stop Date: 02/14/22 Status: Ordered Problem List Condition Effective Dates Status Health Status Inform ant 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, estrogen receptor positive(Confirmed) 09/2021 Active Social History Social History Type Response Smoking Status Never (less than 100 in lifetime) entered on: 10/27/21 Sex Medical Equipment Implanted Date:11/18/21Target Site:Chest Description Quantity MRI Company Model MESH ALLOMAX HUMAN 16X20 - B JULES ([id number]) 1 Bard Unknown MARY:No Information Assigning Authority: FDA MESH ALLOMAX HUMAN 16X20 - B JULES ([id number]) 1 Bard Unknown MARY:No Information Assigning Authority: FDA IMPLANT BREAST MODPRO XTRA 3 25 - MNTR ([id number]) 1 [place] Carlos Unknown MARY:No Information Assigning Authority: FDA IMPLANT BREAST MODPRO XTRA 3 25 - MNTR ([id number]) 1 [place] Carlos Unknown MARY:No Information Assigning Authority: FDA
--- OUTSIDE RECORDS SUMMARY | 2023-04-20 07:52 | XMS_ITS | Continuity of Care Document ---
Author Name Unknown Organization [facility] Address [address] [place] [address]- Care Team Providers Care Cnc Mill Operator Name Role Phone Anamaria Tabares MD Primary Care Physician [phone] Encounter [facility] [place] Date(s): 10/07/22 - 11/06/22 [facility] [address] [place] [address]- Allergies, Adverse Reactions, Alerts Substance Reaction Severity [...] Device Type Site Reconstruction Breast with Permanent Ilda Watson MD, Sekou Perez 11/18/21 Unknown Chest Device Identifier Serial Number Lot or Batch Number Manufacturing Date Expiration Date Distinct Identification Code MRI Safety Implantable Status Assigning Authority Unknown [id number] Unknown 07/30/26 Unknown Unknown Active Unknown Procedure Provider Procedure Date Device Type Site Reconstruction Breast with Permanent Ilda Watson MD, Sekou Perez 11/18/21 Unknown Chest Device Identifier Serial Number Lot or Batch Number Manufacturing Date Expiration Date Distinct Identification Code MRI Safety Implantable Status Assigning Authority Unknown [id number] Unknown 05/05/26 Unknown Unknown Active Unknown Procedure Provider Procedure Date Device Type Site Reconstruction Breast with Permanent Ilda Watson MD, Sekou Perez 11/18/21 Unknown Chest Device Identifier Serial Number Lot or Batch Number Manufacturing Date Expiration Date Distinct Identification Code MRI Safety Implantable Status Assigning Authority Unknown [id number] 25 Unknown 02/09/26 Unknown Unknown Active Unknown Procedure Provider Procedure Date Device Type Site Reconstruction Breast with Permanent Sekou Samuel MD 11/18/21 Unknown Chest Device Identifier Serial Number Lot or Batch Number Manufacturing Date Expiration Date Distinct Identification Code MRI Safety Implantable Status Assigning Authority Unknown [id number] 65 Unknown 02/09/26 Unknown Unknown Active Unknown Patient Care team information Care Team Personnel Name: Anamaria Tabares MD Position: [facility] Physician (General Medicine) Member Role: PCP Address: Address: [address] [place] [address]- Care Team Related Persons Name: ADELAIDE BAEZ Address: home [address] [place] [address]
--- OUTSIDE RECORDS SUMMARY | 2023-04-20 07:53 | XMS_ITS | Continuity of Care Document ---
Author Name Unknown Organization [facility] Address [address] [place] [address]- Care Team Providers Care Resident Care Provider Name Role Phone Rayshawn DUEÑAS, Anamaria Primary Care Physician [place] [facility] [place] 12[place]17[place]21 - 01/16/22 [facility] [address] [place] [address]- Allergies, Adverse Reactions, Alerts Substance Reaction Severity [...] MESH ALLOMAX HUMAN 16X20 - B JULES ([id number]) 1 Bard Unknown MARY:No Information Assigning Authority: FDA MESH ALLOMAX HUMAN 16X20 - B JULES ([id number]) 1 Bard Unknown MARY:No Information Assigning Authority: FDA IMPLANT BREAST MODPRO XTRA 3 25 - MNTR ([id number]) 1 [place] Carlos Unknown MARY:No Information Assigning Authority: FDA IMPLANT BREAST MODPRO XTRA 3 25 - MNTR ([id number]) 1 [place] Carlos Unknown MARY:No Information Assigning Authority: FDA
--- OUTSIDE RECORDS SUMMARY | 2023-04-20 07:53 | XMS_ITS | Continuity of Care Document ---
Author Name Unknown Organization [facility] Address [address] [place] [address] [address] [place] [address]- Care Team Providers Care Stencil Maker Name Role Phone Anamaria Tabares MD Primary Care Physician Encounter [facility] [place] Date(s): 04/23/22 - 05/23/22 [facility] [address] [place] [address] Drive [address] [place], [place] [address] Attending Physician: Aida Stroud Admitting Physician: Aida Stroud Referring Physician: AdmtrAida [...] MRI Safety Implantable Status Assigning Authority Unknown [id number] Unknown 07/30/26 Unknown Unknown Active Unknown Procedure Provider Procedure Date Device Type Site Reconstruction Breast with Permanent Imp Sekou Watson MD 11/18/21 Unknown Chest Device Identifier Serial Number Lot or Batch Number Manufacturing Date Expiration Date Distinct Identification Code MRI Safety Implantable Status Assigning Authority Unknown [id number] Unknown 05/05/26 Unknown Unknown Active Unknown Procedure Provider Procedure Date Device Type Site Reconstruction Breast with Permanent Imp Sekou Watson MD 11/18/21 Unknown Chest Device Identifier Serial Number Lot or Batch Number Manufacturing Date Expiration Date Distinct Identification Code MRI Safety Implantable Status Assigning Authority Unknown [id number] 25 Unknown 02/09/26 Unknown Unknown Active Unknown Procedure Provider Procedure Date Device Type Site Reconstruction Breast with Permanent Imp Walter DUEÑAS, Sekou Perez 11/18/21 Unknown Chest Device Identifier Serial Number Lot or Batch Number Manufacturing Date Expiration Date Distinct Identification Code MRI Safety Implantable Status Assigning Authority Unknown [id number] 65 Unknown 02/09/26 Unknown Unknown Active Unknown Care Team Personnel Name: Anamaria Tabares MD Address: [address] [place] [address]
--- OUTSIDE RECORDS SUMMARY | 2023-04-20 07:53 | XMS_ITS | Continuity of Care Document ---
Author Name Unknown Organization [facility] Address [address] [place] [address]- Care Team Providers Care School Community Relations Coordinator Name Role Phone Anamaria Tabares MD Primary Care Physician Encounter [place] Date(s): 11/12/21 - 12/12/21 [facility] [address] [facility] [place] [address]- Allergies, Adverse Reactions, Alerts Substance Reaction Severity [...] MESH ALLOMAX HUMAN 16X20 - B JULES ([id number]) 1 Bard Unknown MARY:No Information Assigning Authority: FDA MESH ALLOMAX HUMAN 16X20 - B JULES ([id number]) 1 Bard Unknown MARY:No Information Assigning Authority: FDA IMPLANT BREAST MODPRO XTRA 3 25 - MNTR ([id number]) 1 [place] Carlos Unknown MARY:No Information Assigning Authority: FDA IMPLANT BREAST MODPRO XTRA 3 25 - MNTR ([id number]) 1 [place] Carlos Unknown MARY:No Information Assigning Authority: FDA
--- OUTSIDE RECORDS SUMMARY | 2023-04-20 07:53 | XMS_ITS | Continuity of Care Document ---
Author Name Unknown Organization [facility] Address [address] [place] [address] [address] [place] [address]- Care Team Providers Care Test Examiner Name Role Phone Anamaria Tabares MD Primary Care Physician [phone] [place] [facility] [place] 03/[place]/22 [facility] [address] [place], [place] [address] Allergies, Adverse Reactions, Alerts Substance [...] MESH ALLOMAX HUMAN 16X20 - B JULES ([id number]) 1 Bard Unknown MARY:No Information Assigning Authority: FDA MESH ALLOMAX HUMAN 16X20 - B JULES ([id number]) 1 Bard Unknown MARY:No Information Assigning Authority: FDA IMPLANT BREAST MODPRO XTRA 3 25 - MNTR ([id number]) 1 [place] Carlos Unknown MARY:No Information Assigning Authority: FDA IMPLANT BREAST MODPRO XTRA 3 25 - MNTR ([id number]) 1 [place] Carlos Unknown MARY:No Information Assigning Authority: FDA
--- OUTSIDE RECORDS SUMMARY | 2023-04-20 07:53 | XMS_ITS | Continuity of Care Document ---
Author Name Unknown Organization [facility] Address [address] [place] [address] [address] [place] [address]- Care Team Providers Care Support Teacher Name Role Phone Anamaria Tabares MD Primary Care Physician Encounter [facility] [place] Date(s): 11/16/21 - 12/16/21 [facility] [address] [place] [address] Drive [address] [place], [place] [address] Allergies, Adverse Reactions, Alerts Substance Reaction [...] MESH ALLOMAX HUMAN 16X20 - B JULES ([id number]) 1 Bard Unknown MARY:No Information Assigning Authority: FDA MESH ALLOMAX HUMAN 16X20 - B JULES ([id number]) 1 Bard Unknown MARY:No Information Assigning Authority: FDA IMPLANT BREAST MODPRO XTRA 3 25 - MNTR ([id number]) 1 [place] Carlos Unknown MARY:No Information Assigning Authority: FDA IMPLANT BREAST MODPRO XTRA 3 25 - MNTR ([id number]) 1 [place] Carlos Unknown MARY:No Information Assigning Authority: FDA
--- OUTSIDE RECORDS SUMMARY | 2023-04-20 07:53 | XMS_ITS | Continuity of Care Document ---
Author Name Unknown Organization [facility] Address [address] [place] [address] [address] [place] [address]- Care Team Providers Care Scrip Clerk Name Role Phone Anamaria Tabares MD Primary Care Physician Encounter [facility] [place] Date(s): 07/16/22 - 08/15/22 [facility] [address] [place], [place] [address] Allergies, Adverse Reactions, Alerts Substance [...] MRI Safety Implantable Status Assigning Authority Unknown [id number] Unknown 07/30/26 Unknown Unknown Active Unknown Procedure Provider Procedure Date Device Type Site Reconstruction Breast with Permanent Imp Sekou Watson MD 11/18/21 Unknown Chest Device Identifier Serial Number Lot or Batch Number Manufacturing Date Expiration Date Distinct Identification Code MRI Safety Implantable Status Assigning Authority Unknown [id number] Unknown 05/05/26 Unknown Unknown Active Unknown Procedure Provider Procedure Date Device Type Site Reconstruction Breast with Permanent Sekou Samuel MD 11/18/21 Unknown Chest Device Identifier Serial Number Lot or Batch Number Manufacturing Date Expiration Date Distinct Identification Code MRI Safety Implantable Status Assigning Authority Unknown [id number] 25 Unknown 02/09/26 Unknown Unknown Active Unknown Procedure Provider Procedure Date Device Type Site Reconstruction Breast with Permanent Imp Walter DUEÑAS, Sekou Perez 11/18/21 Unknown Chest Device Identifier Serial Number Lot or Batch Number Manufacturing Date Expiration Date Distinct Identification Code MRI Safety Implantable Status Assigning Authority Unknown [id number] 65 Unknown 02/09/26 Unknown Unknown Active Unknown Patient Care team information Care Team Personnel Name: Anamaria Tabares MD Position: [facility] Physician (General Medicine) Member Role: PCP Address: Address: [address] [place] [address]- Care Team Related Persons Name: ADELAIDE BAEZ Address: home [address] [place] [address]
--- OUTSIDE RECORDS SUMMARY | 2023-04-20 07:53 | XMS_ITS | Continuity of Care Document ---
Author Name Unknown Organization [facility] Address [address] [place] [address] [address]ri [address] [place] [address]- Care Team Providers Care Live Ammunition Inspector Name Role Phone Anamaria Tabares MD Primary Care Physician [phone] 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, estrogen receptor positive(Confirmed) 09/2021 Active 1Problem added by Discern Expert Vital Signs Most recent to oldest [Reference Range]: 1 Height 174.7 cm (03/12/22 9:16 AM) Temperature [96.8-100.4 DegF] 97.4 DegF (03/12/22 9:16 AM) Temperature Route Temporal (03/12/22 9:16 AM) Social History Social History Type Response Smoking Status Never (less than 100 in lifetime) entered on: 10/27/21 Sex Medical Equipment Implanted Date:11/18/21Target Site:Chest Description Quantity MRI Company Model MESH ALLOMAX HUMAN 16X20 - B JULES ([id number]) 1 Bard Unknown MARY:No Information Assigning Authority: FDA MESH ALLOMAX HUMAN 16X20 - B JULES ([id number]) 1 Bard Unknown MARY:No Information Assigning Authority: FDA IMPLANT BREAST MODPRO XTRA 3 25 - MNTR ([id number]) 1 [place] Unknown MARY:No Information Assigning Authority: FDA IMPLANT BREAST MODPRO XTRA 3 25 - MNTR ([id number]) 1 [place] Unknown MARY:No Information Assigning Authority: FDA
--- OUTSIDE RECORDS SUMMARY | 2023-04-20 07:53 | XMS_ITS | Continuity of Care Document ---
Author Name Unknown Organization [facility] Address [address] [place] [address] [address] [place] [address]- Care Team Providers Care Ventilation Equipment Tender Name Role Phone Anamaria Tabares MD Primary Care Physician Encounter [facility] [place] Date(s): 09/28/22 - 10/28/22 [facility] [address] [place] [address] Drive [address] [place], [place] [address] Allergies, Adverse [...] MRI Safety Implantable Status Assigning Authority Unknown [id number] Unknown 07/30/26 Unknown Unknown Active Unknown Procedure Provider Procedure Date Device Type Site Reconstruction Breast with Permanent Sekou Samuel MD 11/18/21 Unknown Chest Device Identifier Serial Number Lot or Batch Number Manufacturing Date Expiration Date Distinct Identification Code MRI Safety Implantable Status Assigning Authority Unknown [id number] Unknown 05/05/26 Unknown Unknown Active Unknown Procedure Provider Procedure Date Device Type Site Reconstruction Breast with Permanent Sekou Samuel MD 11/18/21 Unknown Chest Device Identifier Serial Number Lot or Batch Number Manufacturing Date Expiration Date Distinct Identification Code MRI Safety Implantable Status Assigning Authority Unknown [id number] 25 Unknown 02/09/26 Unknown Unknown Active Unknown Procedure Provider Procedure Date Device Type Site Reconstruction Breast with Permanent Sekou Samuel MD 11/18/21 Unknown Chest Device Identifier Serial Number Lot or Batch Number Manufacturing Date Expiration Date Distinct Identification Code MRI Safety Implantable Status Assigning Authority Unknown [id number] 65 Unknown 02/09/26 Unknown Unknown Active Unknown Patient Care team information Care Team Personnel Name: Anamaria Tabares MD Position: [facility] Physician (General Medicine) Member Role: PCP Address: Address: [address] [place] [address]- Care Team Related Persons Name: ADELAIDE BAEZ Address: [address] [address]
--- OUTSIDE RECORDS SUMMARY | 2023-04-20 07:53 | XMS_ITS | Continuity of Care Document ---
Author Name Unknown Organization [facility] Address [address] [place] [address] [address] [place] [address]- Care Team Providers Care Quality Control Manager Name Role Phone Anamaria Tabaers MD Primary Care Physician Encounter [facility] Date(s): 06/03/22 - 07/03/22 [facility] [address] [place] [address] Drive [address] [place], [place] [address] Allergies, Adverse [...] MRI Safety Implantable Status Assigning Authority Unknown [id number] Unknown 07/30/26 Unknown Unknown Active Unknown Procedure Provider Procedure Date Device Type Site Reconstruction Breast with Permanent Sekou Samuel MD 11/18/21 Unknown Chest Device Identifier Serial Number Lot or Batch Number Manufacturing Date Expiration Date Distinct Identification Code MRI Safety Implantable Status Assigning Authority Unknown [id number] Unknown 05/05/26 Unknown Unknown Active Unknown Procedure Provider Procedure Date Device Type Site Reconstruction Breast with Permanent Sekou Samuel MD 11/18/21 Unknown Chest Device Identifier Serial Number Lot or Batch Number Manufacturing Date Expiration Date Distinct Identification Code MRI Safety Implantable Status Assigning Authority Unknown [id number] 25 Unknown 02/09/26 Unknown Unknown Active Unknown Procedure Provider Procedure Date Device Type Site Reconstruction Breast with Permanent Sekou Samuel MD 11/18/21 Unknown Chest Device Identifier Serial Number Lot or Batch Number Manufacturing Date Expiration Date Distinct Identification Code MRI Safety Implantable Status Assigning Authority Unknown [id number] 65 Unknown 02/09/26 Unknown Unknown Active Unknown Patient Care team information Personnel Name: Anamaria Tabares MD Address: Address: [address]
--- OUTSIDE RECORDS SUMMARY | 2023-04-20 07:53 | XMS_ITS | Continuity of Care Document ---
Author Name Unknown Organization [facility] Address [address] [place] [address] [address] [place] [address]- Care Team Providers Care Delimer Name Role Phone Rayshawn DUEÑAS, Anamaria Primary Care Physician [phone] Encounter [facility] Date(s): 11/09/21 - 12/09/21 [facility] [address] [place] [address] Drive [address] [place], [place] [address] Allergies, Adverse Reactions, Alerts Substance [...] MESH ALLOMAX HUMAN 16X20 - B JULES ([id number]) 1 Bard Unknown MARY:No Information Assigning Authority: FDA MESH ALLOMAX HUMAN 16X20 - B JULES ([id number]) 1 Bard Unknown MARY:No Information Assigning Authority: FDA IMPLANT BREAST MODPRO XTRA 3 25 - MNTR ([id number]) 1 [place] Carlos Unknown MARY:No Information Assigning Authority: FDA IMPLANT BREAST MODPRO XTRA 3 25 - MNTR ([id number]) 1 [place] Carlos Unknown MARY:No Information Assigning Authority: FDA
--- OUTSIDE RECORDS SUMMARY | 2023-04-20 07:53 | XMS_ITS | Continuity of Care Document ---
Author Name Unknown Organization [facility] ter Address [address] [place] [address]- Care Team Providers Care Adult Remedial Education Instructor Name Role Phone Anamaria Tabares MD Primary Care Physician Encounter [facility] [place] Date(s): 11/18/21 - 11/18/[address] [address] Discharge Disposition: A-D/C Home Attending Physician: Gracie Chang MD Admitting Physician: Gracie Chang MD Referring Physician: Gracie Chang MD Allergies, Adverse Reactions, Alerts Substance Reaction Severity Status sulfADIAZINE full body rash Active Pollen Active Medications cephalexin monohydrate 500 mg oral tablet 1 tablet = 500 mg, By Mouth, 4 times a day, for 7 days, # 28 tablet, 0 Refills, Acute 11/25/21 8:30:00 EDT, 11/18/21 8:30:00 EST, Tablet, [facility] #[id number], Partial fill upon patient request if the prescription is for a schedule II opioid dr... Start Date: 11/18/21 Stop Date: 11/25/21 Status: Ordered ibuprofen 600 mg oral tablet 600 mg, 1, tablet, By Mouth, Every 6 hours, for 10 days, # 40 tablet, Refills 0, Tot. Refills 0, Acute 11/28/21 8:30:00 EDT, 11/18/21 8:30:00 EST, Route to Pharmacy Electronically, [facility] #[id number], Partial fill upon patient request if the... Start Date: 11/18/21 Stop Date: 11/28/21 Status: Ordered lidocaine 4% topical cream 1 application, Topically, Once, Apply to nipple areola 1 hour before arriving for surgery, cover with saran wrap., # 5 Gm, 0 Refills, Soft Stop, 10/27/21 13:06:00 EST, Cream, [facility] #[id number], Partial fill upon patient request if the prescr... Start Date: 10/27/21 Status: Ordered oxyCODONE 5 mg oral tablet 5 mg, 1, tablet, By Mouth, Every 6 hours, PRN, # 18 tablet, Refills 0, Tot. Refills 0, Maintenance,Pain , Severe, 11/18/21 8:30:00 EST, Route to Pharmacy Electronically, [facility] #[id number],Partial fill upon patient request if the prescripti... Start Date: 11/18/21 Status: Ordered OxyCODONE IR Tablet 10 mg, Tablet, By Mouth, Every 4 hours, in PACU ONLY, if patient can tolerate PO, PRN for Pain , Moderate, Routine, 11/18/21 11:01:00 EST Start Date: 11/18/21 Stop Date: 11/19/21 Status: Discontinued Tylenol 8 Hour 650 mg oral tablet, extended release 1 tablet = 650 mg, By Mouth, Every 6 hours, for 10 days, # 40 tablet, 0 Refills, Acute 11/28/21 8:30:00 EDT, 11/18/21 8:30:00 EST, [facility] #[id number], Partial fill upon patient request if the prescription is for a schedule II opioid drug., 17... 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, estrogen receptor positive(Confirmed) 09/2021 Active Vital Signs Most recent to oldest [Reference Range]: 1 2 3 Height 177.80 cm (11/18/21 7:22 AM) 177.80 cm (11/13/21 10:10 AM) Weight 74.8 kg (11/18/21 7:22 AM) 77.27 kg (11/13/21 10:10 AM) Oxygen Saturation [94-100 %] 99 % (11/18/21 4:00 PM) 97 % (11/18/21 3:45 PM) 96 % (11/18/21 3:30 PM) Pulse Rate [55-90 bpm] 85 bpm (11/18/21 7:22 AM) Body Mass Index [18.5-24.99] 23.66 (11/18/21 7:22 AM) 24.44 (11/13/21 10:10 AM) Blood Pressure [90-138/55-84 mm Hg] 98/67mm Hg (11/18/21 4:00 PM) 97/66mm Hg (11/18/21 3:45 PM) 90/54mm Hg (11/18/21 3:30 PM) Respiratory Rate [16-30 br/min] 15 br/min *L* (11/18/21 4:08 PM) 22 br/min (11/18/21 4:00 PM) 13 br/min *L* (11/18/21 3:45 PM) Temperature [96.8-100.4 DegF] 99.2 DegF (11/18/21 2:45 PM) 97.9 DegF (11/18/21 7:22 AM) Liters per Minute 6 L/min (11/18/21 2:45 PM) Mode of Delivery (Oxygen) Room air (11/18/21 4:00 PM) Room air (11/18/21 3:45 PM) Room air (11/18/21 3:30 PM) Temperature Route Temporal (11/18/21 2:45 PM) Temporal (11/18/21 7:22 AM) Dry Weight 74.8 kg (11/18/21 7:22 AM) 77.27 kg (11/13/21 10:10 AM) Weight Obtained Via Standing scale (11/18/21 7:22 AM) Patient/family stated (11/13/21 10:10 AM) Dry Weight Obtained Via Standing scale (11/18/21 7:22 AM) Patient/family stated (11/13/21 10:10 AM) Social History Social History Type Response Smoking Status Never (less than 100 in lifetime) entered on: 10/27/21 Sex Medical Equipment Implanted Date:11/18/21Target Site:Chest Description Quantity MRI Company Model MESH ALLOMAX HUMAN 16X20 - B JULES ([id number]) 1 Bard Unknown MARY:No Information Assigning Authority: FDA MESH ALLOMAX HUMAN 16X20 - B JULES ([id number]) 1 Bard Unknown MARY:No Information Assigning Authority: FDA IMPLANT BREAST MODPRO XTRA 3 25 - MNTR ([id number]) 1 [place] Carlos Unknown MARY:No Information Assigning Authority: FDA IMPLANT BREAST MODPRO XTRA 3 25 - MNTR ([id number]) 1 [place] Carlos Unknown MARY:No Information Assigning Authority: [facility]
--- OUTSIDE RECORDS SUMMARY | 2023-04-20 07:53 | XMS_ITS | Continuity of Care Document ---
Author Name Unknown Organization [facility] Address [address] [place] [address]- Care Team Providers Care English Composition Teacher Name Role Phone Anamaria Tabares MD Primary Care Physician [place] [facility] [place] 11/06/22 [facility] [address] [place] [address]- Allergies, Adverse Reactions, Alerts Substance Reaction Severity [...] MRI Safety Implantable Status Assigning Authority Unknown [id number] Unknown 07/30/26 Unknown Unknown Active Unknown Procedure Provider Procedure Date Device Type Site Reconstruction Breast with Permanent Sekou Samuel MD 11/18/21 Unknown Chest Device Identifier Serial Number Lot or Batch Number Manufacturing Date Expiration Date Distinct Identification Code MRI Safety Implantable Status Assigning Authority Unknown [id number] Unknown 05/05/26 Unknown Unknown Active Unknown Procedure Provider Procedure Date Device Type Site Reconstruction Breast with Permanent Sekou Samuel MD 11/18/21 Unknown Chest Device Identifier Serial Number Lot or Batch Number Manufacturing Date Expiration Date Distinct Identification Code MRI Safety Implantable Status Assigning Authority Unknown [id number] 25 Unknown 02/09/26 Unknown Unknown Active Unknown Procedure Provider Procedure Date Device Type Site Reconstruction Breast with Permanent Sekou Samuel MD 11/18/21 Unknown Chest Device Identifier Serial Number Lot or Batch Number Manufacturing Date Expiration Date Distinct Identification Code MRI Safety Implantable Status Assigning Authority Unknown [id number] 65 Unknown 02/09/26 Unknown Unknown Active Unknown Patient Care team information Care Team Personnel Name: Anamaria Tabares MD Position: [facility] Physician (General Medicine) Member Role: PCP Address: Address: [address] [place] [address]- Care Team Related Persons Name: ADELAIDE BAEZ Address: [address] [address]
--- OUTSIDE RECORDS SUMMARY | 2023-04-20 07:53 | XMS_ITS | Continuity of Care Document ---
Author Name Unknown Organization [facility] Address [address] [place] [address] [address] [place] [address]- Care Team Providers Care Accounting Systems Analyst Name Role Phone Anamaria Tabares MD Primary Care Physician [phone] [place] [facility] [place] 09/03/22 - 09/10/22 [facility] [address] [place] [address] Drive [address] [place], [place] [address] Attending Physician: Sekou Watson MD [...] refrigerate unused... 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, estrogen receptor positive Confirmed 09/2021 Active 1Problem added by Discern Expert Vital Signs Most recent to oldest [Reference Range]: 1 Height 175.2 cm (09/03/22 10:33 AM) Temperature [96.8-100.4 DegF] 97.3 DegF (09/03/22 10:33 AM) Temperature Route Temporal (09/03/22 10:33 AM) Social History Social History Type Response Smoking Status Never (less than 100 in lifetime) entered on: 10/27/21 Sex Implantable Device List Procedure Provider Procedure Date Device Type Site Reconstruction Breast with Permanent Imp Walter DUEÑAS, Sekou Perez 11/18/21 Unknown Chest Device Identifier Serial Number Lot or Batch Number Manufacturing Date Expiration Date Distinct Identification Code MRI Safety Implantable Status Assigning Authority Unknown [id number] Unknown 07/30/26 Unknown Unknown Active Unknown Procedure Provider Procedure Date Device Type Site Reconstruction Breast with Permanent Sekou Samuel MD 11/18/21 Unknown Chest Device Identifier Serial Number Lot or Batch Number Manufacturing Date Expiration Date Distinct Identification Code MRI Safety Implantable Status Assigning Authority Unknown [id number] Unknown 05/05/26 Unknown Unknown Active Unknown Procedure Provider Procedure Date Device Type Site Reconstruction Breast with Permanent Sekou Samuel MD 11/18/21 Unknown Chest Device Identifier Serial Number Lot or Batch Number Manufacturing Date Expiration Date Distinct Identification Code MRI Safety Implantable Status Assigning Authority Unknown [id number] 25 Unknown 02/09/26 Unknown Unknown Active Unknown Procedure Provider Procedure Date Device Type Site Reconstruction Breast with Permanent Sekou Samuel MD 11/18/21 Unknown Chest Device Identifier Serial Number Lot or Batch Number Manufacturing Date Expiration Date Distinct Identification Code MRI Safety Implantable Status Assigning Authority Unknown [id number] 65 Unknown 02/09/26 Unknown Unknown Active Unknown Patient Care team information Care Team Personnel Name: Anamaria Tabares MD Position: [facility] Physician (General Medicine) Member Role: PCP Address: Address: [address] [place] [address]- Care Team Related Persons Name: ADELAIDE BAEZ Address: [address] [address]
--- OUTSIDE RECORDS SUMMARY | 2023-04-20 07:53 | XMS_ITS | Continuity of Care Document ---
Author Name Unknown Organization [facility] Address [address] [place] [address] [address] [place] [address]- Care Team Providers Care Application Trainer Name Role Phone Anamaria Tabares MD Primary Care Physician [phone] Encounter [facility] [place] Date(s): 06/07/22 - 08/29/22 [facility] [address] [place] [address] Drive [address] [place], [place] [address] Attending Physician: Kit Storey MD Referring Physician: Anamaria Tabares MD Allergies, [...] MRI Safety Implantable Status Assigning Authority Unknown [id number] Unknown 07/30/26 Unknown Unknown Active Unknown Procedure Provider Procedure Date Device Type Site Reconstruction Breast with Permanent Imp Sekou Watson MD 11/18/21 Unknown Chest Device Identifier Serial Number Lot or Batch Number Manufacturing Date Expiration Date Distinct Identification Code MRI Safety Implantable Status Assigning Authority Unknown [id number] Unknown 05/05/26 Unknown Unknown Active Unknown Procedure Provider Procedure Date Device Type Site Reconstruction Breast with Permanent Imp Sekou Watson MD 11/18/21 Unknown Chest Device Identifier Serial Number Lot or Batch Number Manufacturing Date Expiration Date Distinct Identification Code MRI Safety Implantable Status Assigning Authority Unknown [id number] 25 Unknown 02/09/26 Unknown Unknown Active Unknown Procedure Provider Procedure Date Device Type Site Reconstruction Breast with Permanent Imp Walter DUEÑAS, Sekou Perez 11/18/21 Unknown Chest Device Identifier Serial Number Lot or Batch Number Manufacturing Date Expiration Date Distinct Identification Code MRI Safety Implantable Status Assigning Authority Unknown [id number] 65 Unknown 02/09/26 Unknown Unknown Active Unknown Patient Care team information Care Team Personnel Name: Anamaria Tabares MD Position: [facility] Physician (General Medicine) Member Role: PCP Address: Address: [address] [place] [address]- Care Team Related Persons Name: ADELAIDE BAEZ Address: home [address] [place] [address]
--- OUTSIDE RECORDS SUMMARY | 2023-04-20 07:53 | XMS_ITS | Continuity of Care Document ---
Author Name Unknown Organization [facility] Address [address] [place] [address] [address] [place] [address]- Care Team Providers Care Ramp Service Employee Name Role Phone Anamaria Tabares MD Primary Care Physician [phone] [place] [facility] [id number] Date(s): 07/29/22 - 08/05/22 [facility] [address] [place], [place] [address] Encounter Diagnosis Carcinoma of lower-outer quadrant of left breast in female, estrogen receptor positive(Discharge Diagnosis) - 08/03/22 Attending Physician: Sekou Watson MD Allergies, Adverse Reactions, Alerts Substance Reaction Severity Status sulfADIAZINE full body rash Active Pollen congestion Active Medications No Known Medications Problem List Condition Confirmation Course Effective Dates Status Health St atus Informant COVID-19 1 Confirmed 02/26/22 Active Carcinoma of lower-outer quadrant of left breast in female, estrogen receptor positive Confirmed 09/2021 Active 1Problem added by Discern Expert Diagnosis Diagnosis Type Effective Dates Health Status Cl inical Service Informant Carcinoma of lower-outer quadrant of left breast in female, estrogen receptor positive Discharge Diagnosis 08/03/22 Vital Signs Most recent to oldest [Reference Range]: 1 Height 175.2 cm (07/29/22 1:43 PM) Temperature [96.8-100.4 DegF] 97.5 DegF (07/29/22 1:43 PM) Temperature Route Temporal (07/29/22 1:43 PM) Social History Social History Type Response Smoking Status Never (less than 100 in lifetime) entered on: 10/27/21 Sex Implantable Device List Procedure Provider Procedure Date Device Type Site Reconstruction Breast with Permanent Imp Sekou Watson MD 11/18/21 Unknown Chest Device Identifier Serial Number Lot or Batch Number Manufacturing Date Expiration Date Distinct Identification Code MRI Safety Implantable Status Assigning Authority Unknown [id number] Unknown 07/30/26 Unknown Unknown Active Unknown Procedure Provider Procedure Date Device Type Site Reconstruction Breast with Permanent Ilda Watson MD, Sekou Perez 11/18/21 Unknown Chest Device Identifier Serial Number Lot or Batch Number Manufacturing Date Expiration Date Distinct Identification Code MRI Safety Implantable Status Assigning Authority Unknown [id number] Unknown 05/05/26 Unknown Unknown Active Unknown Procedure Provider Procedure Date Device Type Site Reconstruction Breast with Permanent Ilda Watson MD, Sekou Perez 11/18/21 Unknown Chest Device Identifier Serial Number Lot or Batch Number Manufacturing Date Expiration Date Distinct Identification Code MRI Safety Implantable Status Assigning Authority Unknown [id number] 25 Unknown 02/09/26 Unknown Unknown Active Unknown Procedure Provider Procedure Date Device Type Site Reconstruction Breast with Permanent Sekou Samuel MD 11/18/21 Unknown Chest Device Identifier Serial Number Lot or Batch Number Manufacturing Date Expiration Date Distinct Identification Code MRI Safety Implantable Status Assigning Authority Unknown [id number] 65 Unknown 02/09/26 Unknown Unknown Active Unknown Patient Care team information Care Team Personnel Name: Anamaria Tabares MD Position: [facility] Physician (General Medicine) Member Role: PCP Address: Address: [address] [place] [address]- Care Team Related Persons Name: ADELAIDE BAEZ Address: home [address] [place] [address]
--- OUTSIDE RECORDS SUMMARY | 2023-04-20 07:53 | XMS_ITS | Continuity of Care Document ---
Author Name Unknown Organization [facility] Address [address] [place] [address] [address] [place] [address]- Care Team Providers Care Frame Sample And Pattern Supervisor Name Role Phone Anamaria Tabares MD Primary Care Physician [phone] Encounter [facility] [place] [id number] Date(s): 08/03/22 - 08/10/22 [facility] [address] [place], [place] [address] Attending Physician: Pavel CUETO, Aleah Gomez Allergies, Adverse Reactions, Alerts Substance Reaction Severity [...] oldest [Reference Range]: 1 Height 175.2 cm (08/03/22 9:42 AM) Weight 73 kg (08/03/22 9:42 AM) Body Mass Index [18.5-24.99 kg/m2] 23.78 kg/m2 (08/03/22 9:42 AM) Dry Weight 73 kg (08/03/22 9:42 AM) Dry Weight Obtained Via Standing scale (08/03/22 9:42 AM) Social History Social History Type Response Smoking Status Never (less than 100 in lifetime) entered on: 10/27/21 Sex Implantable Device List Procedure Provider Procedure Date Device Type Site Reconstruction Breast with Permanent Sekou Samuel MD 11/18/21 Unknown Chest Device Identifier Serial Number Lot or Batch Number Manufacturing Date Expiration Date Distinct Identification Code MRI Safety Implantable Status Assigning Authority Unknown [id number] Unknown 07/30/26 Unknown Unknown Active Unknown Procedure Provider Procedure Date Device Type Site Reconstruction Breast with Permanent Sekou Samuel MD 11/18/21 Unknown Chest Device Identifier Serial Number Lot or Batch Number Manufacturing Date Expiration Date Distinct Identification Code MRI Safety Implantable Status Assigning Authority Unknown [id number] Unknown 05/05/26 Unknown Unknown Active Unknown Procedure Provider Procedure Date Device Type Site Reconstruction Breast with Permanent Imp Sekou Watson MD 11/18/21 Unknown Chest Device Identifier Serial Number Lot or Batch Number Manufacturing Date Expiration Date Distinct Identification Code MRI Safety Implantable Status Assigning Authority Unknown [id number] 25 Unknown 02/09/26 Unknown Unknown Active Unknown Procedure Provider Procedure Date Device Type Site Reconstruction Breast with Permanent Sekou Samuel MD 11/18/21 Unknown Chest Device Identifier Serial Number Lot or Batch Number Manufacturing Date Expiration Date Distinct Identification Code MRI Safety Implantable Status Assigning Authority Unknown [id number] 65 Unknown 02/09/26 Unknown Unknown Active Unknown Patient Care team information Care Team Personnel Name: Anamaria Tabares MD Position: [facility] Physician (General Medicine) Member Role: PCP Address: Address: [address] [place] [address]- Care Team Related Persons Name: ADELAIDE BAEZ Address: home [address] [place] [address]
--- OUTSIDE RECORDS SUMMARY | 2023-04-20 07:53 | XMS_ITS | Continuity of Care Document ---
Author Name Unknown Organization [facility] Address [address] [place] [address]- Care Team Providers Care Editor Dictionary Name Role Phone Rayshawn DUEÑAS, Anamaria Primary Care Physician [phone] [place] [facility] [place] - 02/04/22 [facility] [address] [place] [address]- Allergies, Adverse Reactions, Alerts Substance Reaction Severity [...] MESH ALLOMAX HUMAN 16X20 - B JULES ([id number]) 1 Bard Unknown MARY:No Information Assigning Authority: FDA MESH ALLOMAX HUMAN 16X20 - B JULES ([id number]) 1 Bard Unknown MARY:No Information Assigning Authority: FDA IMPLANT BREAST MODPRO XTRA 3 25 - MNTR ([id number]) 1 [place] Carlos Unknown MARY:No Information Assigning Authority: FDA IMPLANT BREAST MODPRO XTRA 3 25 - MNTR ([id number]) 1 [place] Unknown MARY:No Information Assigning Authority: FDA
--- OUTSIDE RECORDS SUMMARY | 2023-04-20 07:53 | XMS_ITS | Continuity of Care Document ---
Author Name Unknown Organization [facility] ter Address [address] [place] [address]- Care Team Providers Care Plate Glass Installer Helper Name Role Phone Anamaria Tabares MD Primary Care Physician [phone] En[place] [facility] [place] Date(s): 01/13/22 - 02/25/[address] [address] Attending Physician: Effie Maldonado MD Admitting Physician: Effie Maldonado MD Referring Physician: Effie Maldonado MD Allergies, Adverse Reactions, Alerts Substance Reaction [...] MESH ALLOMAX HUMAN 16X20 - B JULES ([id number]) 1 Bard Unknown MARY:No Information Assigning Authority: FDA MESH ALLOMAX HUMAN 16X20 - B JULES ([id number]) 1 Bard Unknown MARY:No Information Assigning Authority: FDA IMPLANT BREAST MODPRO XTRA 3 25 - MNTR ([id number]) 1 [place] Carlos Unknown MARY:No Information Assigning Authority: FDA IMPLANT BREAST MODPRO XTRA 3 25 - MNTR ([id number]) 1 [place] Carlos Unknown MARY:No Information Assigning Authority: FDA
--- OUTSIDE RECORDS SUMMARY | 2023-04-20 07:53 | XMS_ITS | Continuity of Care Document ---
Author Name Unknown Organization [facility] Address [address] [place] [address] [address] [place] [address]- Care Team Providers Care Livestock Rancher Name Role Phone Rayshawn DUEÑAS, Anamaria Primary Care Physician [phone] Encounter [facility] Date(s): 01/25/22 - 02/24/22 [facility] [address] [place] [address] Drive [address] [place], [place] [address] Allergies, Adverse Reactions, Alerts Substance [...] MESH ALLOMAX HUMAN 16X20 - B JULES ([id number]) 1 Bard Unknown MARY:No Information Assigning Authority: FDA MESH ALLOMAX HUMAN 16X20 - B JULES ([id number]) 1 Bard Unknown MARY:No Information Assigning Authority: FDA IMPLANT BREAST MODPRO XTRA 3 25 - MNTR ([id number]) 1 [place] Carlos Unknown MARY:No Information Assigning Authority: FDA IMPLANT BREAST MODPRO XTRA 3 25 - MNTR ([id number]) 1 [place] Carlos Unknown MARY:No Information Assigning Authority: FDA
--- OUTSIDE RECORDS SUMMARY | 2023-04-20 07:53 | XMS_ITS | Continuity of Care Document ---
Author Name Unknown Organization [facility] ter Address [address] [place] [address]- Care Team Providers Care Clothes Drier Assembler Name Role Phone Anamaria Tabares MD Primary Care Physician [phone] Encounter [facility] [place] Date(s): 02/26/22 - 02/26/[address] [address]- Encounter Diagnosis COVID(Final) - 02/26/22 Discharge Disposition: A-D/C Home Attending Physician: Lisa Wagner DO Admitting Physician: Lisa Wagner DO Referring Physician: Not on Staff, Referring MD Allergies, Adverse Reactions, Alerts Substance Reaction Severity Status sulfADIAZINE full body rash Active Pollen Active Problem List Condition Effective Dates Status Health Status Inform ant COVID-19(Confirmed) 1 02/26/22 Active 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, estrogen receptor positive(Confirmed) 09/2021 Active 1Problem added by Discern Expert Results Radiology Reports * Exam Date Time Procedure Performing Provider Status 02/26/22 4:23 PM Chest Portable Bethanie Pascal; Auth (Verified) Notes: (Chest Portable) Reason For Exam: Fever RESULT: Chest Portable Chest Portable Hx of Present Illness: fever, body aches; Clinical Question(s): Pneumonia COMPARISON: None. FINDINGS: LINES AND TUBES: Single lumen implanted right port. LUNGS AND PLEURA: Clear lungs. Normal pulmonary vascularity. No pleural effusion. No pneumothorax. HEART, MEDIASTINUM AND JESSEE: Heart is normal in size. Normal upper mediastinal and hilar contour. BONES AND SOFT TISSUES: No acute abnormality. IMPRESSION: No acute abnormality. WSN: [id number] Ordering Physician: Mere Dooley Dictated By: Ray Rosenbaum MD Dictated Date/Time: 02/26/22 4:25 pm Reviewed By: Ray Rosenbaum MD Signed By: Ray Rosenbaum MD Signed Date/Time: 02/26/22 4:25 pm Transcribed By: REYNALDO Transcribed Date/Time: 02/26/22 4:25 pm Vital Signs Most recent to oldest [Reference Range]: 1 2 3 Oxygen Saturation [94-100 %] 100 % (02/26/22 6:57 PM) 100 % (02/26/22 3:38 PM) 99 % (02/26/22 2:20 PM) Pulse Rate [55-90 bpm] 90 bpm (02/26/22 6:57 PM) 95 bpm *H* (02/26/22 3:38 PM) 106 bpm *H* (02/26/22 2:20 PM) Blood Pressure [90-138/55-84 mm Hg] 115/80mm Hg (02/26/22 6:57 PM) 115/77mm Hg (02/26/22 3:38 PM) 113/83mm Hg (02/26/22 2:20 PM) Respiratory Rate [16-30 br/min] 18 br/min (02/26/22 6:57 PM) 18 br/min (02/26/22 3:38 PM) 16 br/min (02/26/22 2:20 PM) Temperature [96.8-100.4 DegF] 97.8 DegF (02/26/22 6:57 PM) 98.6 DegF (02/26/22 3:38 PM) 98.5 DegF (02/26/22 1:55 PM) Mode of Delivery (Oxygen) Room air (02/26/22 6:57 PM) Room air (02/26/22 3:38 PM) Room air (02/26/22 2:20 PM) Blood pressure sites Arm, left (02/26/22 6:57 PM) Arm, left (02/26/22 3:38 PM) Arm, left (02/26/22 2:20 PM) Temperature Route Oral (02/26/22 6:57 PM) Oral (02/26/22 3:38 PM) Oral (02/26/22 1:55 PM) Social History Social History Type Response Smoking Status Never (less than 100 in lifetime) entered on: 10/27/21 Sex Medical Equipment Implanted Date:11/18/21Target Site:Chest Description Quantity MRI Company Model MESH ALLOMAX HUMAN 16X20 - B JULES ([id number]) 1 Bard Unknown MARY:No Information Assigning Authority: [facility] MESH ALLOMAX HUMAN 16X20 - B JULES ([id number]) 1 Bard Unknown MARY:No Information Assigning Authority: FDA IMPLANT BREAST MODPRO XTRA 3 25 - MNTR ([id number]) 1 [place] [employer] Unknown MARY:No Information Assigning Authority: FDA IMPLANT BREAST MODPRO XTRA 3 25 - MNTR ([id number]) 1 [employer] Unknown MARY:No Information Assigning Authority: FDA
--- OUTSIDE RECORDS SUMMARY | 2023-04-20 07:53 | XMS_ITS | Continuity of Care Document ---
Author Name Unknown Organization [facility] Address [address] [place] [address]- Care Team Providers Care Test And Balance Engineer Name Role Phone Anamaria Tabares MD Primary Care Physician [phone] [place] [facility] [place] 12/01/21 - 12/31/21 [facility] [address] [place] [address]- Attending Physician: Aida Stroud Admitting Physician: Admtr, Aida Referring Physician: Admtr, Ar8 Allergies, Adverse Reactions, Alerts Substance Reaction Severity Status sulfADIAZINE full body rash Active Pollen Active Medications levoFLOXacin 500 mg oral tablet 1 tablet = 500 mg, By Mouth, Every 24 hours, for 10 days, # 10 tablet, 0 Refills, Acute 01/01/22 15:29:00 EDT, 12/22/21 15:29:00 EDT, Tablet, [id number], Partial fill upon patient request if the prescription is for a schedule II opioi... Start Date: 12/22/21 Stop Date: 01/01/22 Status: Ordered levoFLOXacin 750 mg oral tablet 1 tablet = 750 mg, By Mouth, Every 24 hours, for 7 days, # 7 tablet, 0 Refills, Acute 01/05/22 14:26:00 EDT, 12/29/21 14:26:00 EDT, Tablet, [facility] #[id number], Partial fill upon patient request if the [...] MESH ALLOMAX HUMAN 16X20 - B JULES ([id number]) 1 Bard Unknown MARY:No Information Assigning Authority: FDA MESH ALLOMAX HUMAN 16X20 - B JULES ([id number]) 1 Bard Unknown MARY:No Information Assigning Authority: FDA IMPLANT BREAST MODPRO XTRA 3 25 - MNTR ([id number]) 1 [place] Carlos Unknown MARY:No Information Assigning Authority: FDA IMPLANT BREAST MODPRO XTRA 3 25 - MNTR ([id number]) 1 [place] [employer] Unknown MARY:No Information Assigning Authority: FDA
--- OUTSIDE RECORDS SUMMARY | 2023-04-20 07:53 | XMS_ITS | Continuity of Care Document ---
Author Name Unknown Organization [facility] ter Address [address] [place] [address]- Care Team Providers Care Qa Software Tester Name Role Phone Anamaria Tabares MD Primary Care Physician [phone] Encounter [facility] [place] Date(s): 11/18/21 - 12/18/[address] [address] Attending Physician: Not on Staff, Attending MD Admitting Physician: Not on Staff, Admitting MD Referring Physician: Not on Staff, Referring MD [...] MESH ALLOMAX HUMAN 16X20 - B JULES ([id number]) 1 Bard Unknown MARY:No Information Assigning Authority: FDA MESH ALLOMAX HUMAN 16X20 - B JULES ([id number]) 1 Bard Unknown MARY:No Information Assigning Authority: FDA IMPLANT BREAST MODPRO XTRA 3 25 - MNTR ([id number]) 1 [place] Carlos Unknown MARY:No Information Assigning Authority: FDA IMPLANT BREAST MODPRO XTRA 3 25 - MNTR ([id number]) 1 [place] Carlos Unknown MARY:No Information Assigning Authority: FDA
--- OUTSIDE RECORDS SUMMARY | 2023-04-20 07:53 | XMS_ITS | Continuity of Care Document ---
Author Name Unknown Organization [facility] shanell Address [address] [place] [address] Dri [address] [place] [address]- Care Team Providers Care Law Firm Partner Name Role Phone Anamaria Tabares MD Primary Care Physician Encounter [facility] [place] Date(s): 04/23/22 - 05/23/22 [facility] [address] [place] [address] Drive [address] [place] [address]- Attending Physician: Aida Stroud Admitting Physician: Aida [...] MRI Safety Implantable Status Assigning Authority Unknown [id number] Unknown 07/30/26 Unknown Unknown Active Unknown Procedure Provider Procedure Date Device Type Site Reconstruction Breast with Permanent Imp Sekou Watson MD 11/18/21 Unknown Chest Device Identifier Serial Number Lot or Batch Number Manufacturing Date Expiration Date Distinct Identification Code MRI Safety Implantable Status Assigning Authority Unknown [id number] Unknown 05/05/26 Unknown Unknown Active Unknown Procedure Provider Procedure Date Device Type Site Reconstruction Breast with Permanent Imp Sekou Watson MD 11/18/21 Unknown Chest Device Identifier Serial Number Lot or Batch Number Manufacturing Date Expiration Date Distinct Identification Code MRI Safety Implantable Status Assigning Authority Unknown [id number] Unknown 5/31/26 Unknown Unknown Active Unknown Procedure Provider Procedure Date Device Type Site Reconstruction Breast with Permanent Imp Walter DUEÑAS, Sekou Perez 11/18/21 Unknown Chest Device Identifier Serial Number Lot or Batch Number Manufacturing Date Expiration Date Distinct Identification Code MRI Safety Implantable Status Assigning Authority Unknown [id number] Unknown 02/09/26 Unknown Unknown Active Unknown Care Team Personnel Name: Anamaria Tabares MD Address: [address] [place] [address]
--- OUTSIDE RECORDS SUMMARY | 2023-04-20 07:53 | XMS_ITS | Continuity of Care Document ---
Author Name Unknown Organization [facility] Address [address] [place] [address] [address] [place] [address]- Care Team Providers Care Treating Plant Pumper Name Role Phone Rayshawn DUEÑAS, Anamaria Primary Care Physician [phone] Encounter [facility] [place] Date(s): 02/03/22 - 02/10/22 [facility] [address] [place] [address] Drive [address] [place], [place] [address] Attending Physician: Aleah Zhao NP Allergies, Adverse Reactions, Alerts Substance Reaction Severity Status sulfADIAZINE full body rash Active Pollen Active Medications doxycycline hyclate 100 mg oral capsule 1 capsule = 100 mg, By Mouth, 2 times a day, for 7 days, # 14 capsule, 0 Refills, Acute 02/14/22 16:26:00 EDT, 02/07/22 16:26:00 EDT, Capsule, [id number], Partial fill upon patient request if the prescription is for a schedule II opio... Start Date: 02/07/22 Stop Date: 02/14/22 Status: Ordered Problem List Condition Effective Dates Status Health Status Inform ant 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, estrogen receptor positive(Confirmed) 09/2021 Active Vital Signs Most recent to oldest [Reference Range]: 1 Height 174.7 cm (02/03/22 9:17 AM) Weight 73.63 kg (02/03/22 9:17 AM) Pulse Rate [55-90 bpm] 73 bpm (02/03/22 9:17 AM) Body Mass Index [18.5-24.99] 24.13 (02/03/22 9:17 AM) Blood Pressure [90-138/55-84 mm Hg] 129/ 81mm Hg (02/03/22 9:17 AM) Respiratory Rate [16-30 br/min] 18 br/mi n (02/03/22 9:17 AM) Temperature [96.8-100.4 DegF] 97.3 DegF (02/03/22 9:17 AM) Blood pressure sites Arm, right (02/03/22 9:17 AM) Temperature Route Temporal (02/03/22 9:17 AM) Weight Obtained Via Standing scale (02/03/22 9:17 AM) Social History Social History Type Response Smoking Status Never (less than 100 in lifetime) entered on: 10/27/21 Sex Medical Equipment Implanted Date:11/18/21Target Site:Chest Description Quantity MRI Company Model MESH ALLOMAX HUMAN 16X20 - B JULES ([id number]) 1 [employer] Unknown MARY:No Information Assigning Authority: FDA MESH ALLOMAX HUMAN 16X20 - B JULES ([id number]) 1 [employer] Unknown MARY:No Information Assigning Authority: FDA IMPLANT BREAST MODPRO XTRA 3 25 - MNTR ([id number]) 1 [place] Carlos Unknown MARY:No Information Assigning Authority: FDA IMPLANT BREAST MODPRO XTRA 3 25 - MNTR ([id number]) 1 [place] Carlos Unknown MARY:No Information Assigning Authority: FDA
--- OUTSIDE RECORDS SUMMARY | 2023-04-20 07:53 | XMS_ITS | Continuity of Care Document ---
Author Name Unknown Organization [facility] Address [address] [place] [address]- Care Team Providers Care Electronic Device Monitor Name Role Phone Rayshawn DUEÑAS, Anamaria Primary Care Physician Encounter [facility] [place] Date(s): 01/15/22 - 02/14/22 [facility] [address] [place] [address]- Allergies, Adverse Reactions, Alerts Substance Reaction Severity [...] MESH ALLOMAX HUMAN 16X20 - B JULES ([id number]) 1 [employer] Unknown MARY:No Information Assigning Authority: FDA MESH ALLOMAX HUMAN 16X20 - B JULES ([id number]) 1 [place] Unknown MARY:No Information Assigning Authority: FDA IMPLANT BREAST MODPRO XTRA 3 25 - MNTR ([id number]) 1 [place] Carlos Unknown MARY:No Information Assigning Authority: FDA IMPLANT BREAST MODPRO XTRA 3 25 - MNTR ([id number]) 1 [place] Carlos Unknown MARY:No Information Assigning Authority: FDA
--- OUTSIDE RECORDS SUMMARY | 2023-04-20 07:53 | XMS_ITS | Continuity of Care Document ---
Author Name Unknown Organization [facility] sh[facility]ell Address [address] [place] [address] [address] [place] [address]- Care Team Providers Care Diesel Engine Assembler Name Role Phone Anamaria Tabares MD Primary Care Physician [phone] Encounter [facility] Date(s): 06/18/22 - 07/18/22 [facility] [address] [place] [address] Drive [address] [place], [place] [address] Allergies, Adverse Reactions, Alerts Substance Reaction Severity [...] MRI Safety Implantable Status Assigning Authority Unknown [id number] Unknown 07/30/26 Unknown Unknown Active Unknown Procedure Provider Procedure Date Device Type Site Reconstruction Breast with Permanent Sekou Samuel MD 11/18/21 Unknown Chest Device Identifier Serial Number Lot or Batch Number Manufacturing Date Expiration Date Distinct Identification Code MRI Safety Implantable Status Assigning Authority Unknown [id number] Unknown 05/05/26 Unknown Unknown Active Unknown Procedure Provider Procedure Date Device Type Site Reconstruction Breast with Permanent Sekou Samuel MD 11/18/21 Unknown Chest Device Identifier Serial Number Lot or Batch Number Manufacturing Date Expiration Date Distinct Identification Code MRI Safety Implantable Status Assigning Authority Unknown [id number] Unknown 02/09/26 Unknown Unknown Active Unknown Procedure Provider Procedure Date Device Type Site Reconstruction Breast with Permanent Sekou Samuel MD 11/18/21 Unknown Chest Device Identifier Serial Number Lot or Batch Number Manufacturing Date Expiration Date Distinct Identification Code MRI Safety Implantable Status Assigning Authority Unknown [id number] Unknown 02/09/26 Unknown Unknown Active Unknown Patient Care team information Personnel Name: Anamaria Tabares MD Address: Address: [address]
--- OUTSIDE RECORDS SUMMARY | 2023-04-20 07:53 | XMS_ITS | Continuity of Care Document ---
Author Name Unknown Organization [facility] Address [address] [place] [address]- Care Team Providers Care Natural Sciences Manager Name Role Phone Anamaria Tabares MD Primary Care Physician [phone] Encounter [facility] [place] Date(s): 10/16/21 - 11/15/21 [facility] [address] [place] [address] Attending Physician: Aida Stroud Admitting Physician: Admtr, Ar8 Referring Physician: Admtr, Ar8 Allergies, Adverse Reactions, Alerts Substance Reaction Severity Status sulfADIAZINE full body rash Active Pollen Active Medications lidocaine 4% topical cream 1 application, Topically, Once, Apply to nipple areola 1 hour before arriving for surgery, cover with saran wrap., # 5 Gm, 0 Refills, Soft Stop, 10/27/21 13:06:00 EST, Cream, [id number], Partial fill upon patient request if the prescr... Start Date: 10/27/21 Status: Ordered Problem List Condition Effective Dates Status Health Status Inform ant 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, estrogen receptor positive(Confirmed) 09/2021 Active Social History Social History Type Response Smoking Status Never (less than 100 in lifetime) entered on: 10/27/21 Sex
--- OUTSIDE RECORDS SUMMARY | 2023-04-20 07:53 | XMS_ITS | Continuity of Care Document ---
Author Name Unknown Organization [facility] Nan shanell Address [address] [place] [address] [address] [place] [address]- Care Team Providers Care Family Mediator Name Role Phone Rayshawn DUEÑAS, Anamaria Primary Care Physician [phone] Encounter [facility] [place] Date(s): 11/24/21 - 12/01/21 [facility] [address] [place] [address] Drive [address] [place], [place] [address] Attending Physician: Pavel CUETO, Aleah Gomez Referring Physician: Juani Collins Allergies, Adverse Reactions, Alerts Substance Reaction Severity Status sulfADIAZINE full body rash Active Pollen Active Medications No Known Medications Problem List Condition Effective Dates Status Health Status Inform ant 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, estrogen receptor positive(Confirmed) 09/2021 Active Vital Signs Most recent to oldest [Reference Range]: 1 Height 177.80 cm (11/24/21 11:56 AM) Temperature [96.8-100.4 DegF] 96.8 DegF (11/24/21 11:56 AM) Temperature Route Temporal (11/24/21 11:56 AM) Social History Social History Type Response Smoking Status Never (less than 100 in lifetime) entered on: 10/27/21 Sex Medical Equipment Implanted Date:11/18/21Target Site:Chest Description Quantity MRI Company Model MESH ALLOMAX HUMAN 16X20 - B JULES ([id number]) 1 Bard Unknown MARY:No Information Assigning Authority: FDA MESH ALLOMAX HUMAN 16X20 - B JULES ([id number]) 1 Bard Unknown MARY:No Information Assigning Authority: FDA IMPLANT BREAST MODPRO XTRA 3 25 - MNTR ([id number]) 1 [place] Carlos Unknown MARY:No Information Assigning Authority: FDA IMPLANT BREAST MODPRO XTRA 3 25 - MNTR ([id number]) 1 [place] Carlos Unknown MARY:No Information Assigning Authority: FDA
--- OUTSIDE RECORDS SUMMARY | 2023-04-20 07:53 | XMS_ITS | Continuity of Care Document ---
Author Name Unknown Organization [facility] Address [address] [place] [address]- Care Team Providers Care Revenue Coordinator Name Role Phone Anamaria Tabares MD Primary Care Physician Encounter [facility] [place] Date(s): 11/09/21 - 12/31/21 [facility] [address] [place] [place] [address]- Attending Physician: Gracie Chang MD Admitting Physician: Gracie Chang MD Referring Physician: Anamaria Tabares MD Allergies, Adverse Reactions, Alerts Substance Reaction Severity Status sulfADIAZINE full body rash Active Pollen Active Medications levoFLOXacin 500 mg oral tablet 1 tablet = 500 mg, By Mouth, Every 24 hours, for 10 days, # 10 tablet, 0 Refills, Acute 01/01/22 15:29:00 EDT, 12/22/21 15:29:00 EDT, Tablet, [facility][id number], Partial fill upon patient request if the prescription is for a schedule II opioi... Start Date: 12/22/21 Stop Date: 01/01/22 Status: Ordered levoFLOXacin 750 mg oral tablet 1 tablet = 750 mg, By Mouth, Every 24 hours, for 7 days, # 7 tablet, 0 Refills, Acute 01/05/22 14:26:00 EDT, 12/29/21 14:26:00 EDT, Tablet, [facility] #[id number], Partial fill upon patient request if the [...] MESH ALLOMAX HUMAN 16X20 - B JULES ([id number]) 1 Bard Unknown MARY:No Information Assigning Authority: [facility] MESH ALLOMAX HUMAN 16X20 - B JULES ([id number]) 1 Bard Unknown MARY:No Information Assigning Authority: FDA IMPLANT BREAST MODPRO XTRA 3 25 - MNTR ([id number]) 1 [place] Unknown MARY:No Information Assigning Authority: FDA IMPLANT BREAST MODPRO XTRA 3 25 - MNTR ([id number]) 1 [employer] Unknown MARY:No Information Assigning Authority: FDA
--- OUTSIDE RECORDS SUMMARY | 2023-04-20 07:53 | XMS_ITS | Continuity of Care Document ---
Author Name Unknown Organization [facility] Nan shanell Address [address] [place] [address] [address] [place] [address]- Care Team Providers Care Gamb Cutter Name Role Phone Anamaria Tabares MD Primary Care Physician [place] [facility] [place] [facility] [id number] Date(s): 12/29/21 - 01/05/22 [facility] [address] [place], [place] 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, estrogen receptor positive(Confirmed) 09/2021 Active Vital Signs Most recent to oldest [Reference Range]: 1 Height 174.7 cm (12/29/21 2:00 PM) Weight 72.72 kg (12/29/21 2:00 PM) Body Mass Index [18.5-24.99] 23.83 (12/29/21 2:00 PM) Weight Obtained Via Standing scale (12/29/21 2:00 PM) Social History Social History Type Response Smoking Status Never (less than 100 in lifetime) entered on: 10/27/21 Sex Medical Equipment Implanted Date:11/18/21Target Site:Chest Description Quantity MRI Company Model MESH ALLOMAX HUMAN 16X20 - B JULES ([id number]) 1 Bard Unknown MARY:No Information Assigning Authority: FDA MESH ALLOMAX HUMAN 16X20 - B JULES ([id number]) 1 Bard Unknown MARY:No Information Assigning Authority: FDA IMPLANT BREAST MODPRO XTRA 3 25 - MNTR ([id number]) 1 [place] [employer] Unknown MARY:No Information Assigning Authority: FDA IMPLANT BREAST MODPRO XTRA 3 25 - MNTR ([id number]) 1 [place] [employer] Unknown MARY:No Information Assigning Authority: FDA
--- OUTSIDE RECORDS SUMMARY | 2023-04-20 07:54 | XMS_ITS | Continuity of Care Document ---
Author Name Unknown Organization [facility] Nan shanell Address [address] [place] [address] [address] [place] [address]- Care Team Providers Care Proof Sorter Name Role Phone Anamaria Tabares MD Primary Care Physician [id number] Date(s): 12/11/21 - 12/18/21 [facility] [address] [place], [place] [address] Attending Physician: Pavel CUETO, Aleah Gomez Referring Physician: Anamaria Tabares MD Allergies, Adverse Reactions, Alerts Substance Reaction Severity Status sulfADIAZINE full body rash Active Pollen Active Problem List Condition Effective Dates Status Health Status Inform ant 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, estrogen receptor positive(Confirmed) 09/2021 Active Vital Signs Most recent to oldest [Reference Range]: 1 Height 174.7 cm (12/11/21 1:38 PM) Temperature [96.8-100.4 DegF] 97.3 DegF (12/11/21 1:38 PM) Temperature Route Temporal (12/11/21 1:38 PM) Social History Social History Type Response Smoking Status Never (less than 100 in lifetime) entered on: 10/27/21 Sex Medical Equipment Implanted Date:11/18/21Target Site:Chest Description Quantity MRI Company Model MESH ALLOMAX HUMAN 16X20 - B JULES ([id number]) 1 [employer] Unknown MARY:No Information Assigning Authority: FDA MESH ALLOMAX HUMAN 16X20 - B JULES ([id number]) 1 Bard Unknown MARY:No Information Assigning Authority: FDA IMPLANT BREAST MODPRO XTRA 3 25 - MNTR ([id number]) 1 [place] Unknown MARY:No Information Assigning Authority: FDA IMPLANT BREAST MODPRO XTRA 3 25 - MNTR ([id number]) 1 [place] Unknown MARY:No Information Assigning Authority: FDA
--- OUTSIDE RECORDS SUMMARY | 2023-04-20 07:54 | XMS_ITS | Continuity of Care Document ---
Author Name Unknown Organization [facility] Nan shanell Address [address] [place] [address] [address] [place] [address]- Care Team Providers Care Social Media Editor Name Role Phone Rayshawn DUEÑAS, Anamaria Primary Care Physician [phone] [place] [facility] [place] Date(s): 11/27/21 - 12/04/21 [facility] [address] [place] [address] Drive [address] [place], [place] [address] Attending Physician: Aleah Zhao NP Allergies, Adverse Reactions, Alerts Substance Reaction Severity Status sulfADIAZINE full body rash Active Pollen Active Medications No Known Medications Problem List Condition Effective Dates Status Health Status Inform ant 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, estrogen receptor positive(Confirmed) 09/2021 Active Vital Signs Most recent to oldest [Reference Range]: 1 Height 177.80 cm (11/27/21 3:28 PM) Temperature [96.8-100.4 DegF] 98.0 DegF (11/27/21 3:28 PM) Temperature Route Temporal (11/27/21 3:28 PM) Social History Social History Type Response Smoking Status Never (less than 100 in lifetime) entered on: 10/27/21 Sex Medical Equipment Implanted Date:11/18/21Target Site:Chest Description Quantity MRI Company Model MESH ALLOMAX HUMAN 16X20 - B JULES ([id number]) 1 Bard Unknown MARY:No Information Assigning Authority: FDA MESH ALLOMAX HUMAN 16X20 - B JULES ([id number]) 1 Bard Unknown MARY:No Information Assigning Authority: FDA IMPLANT BREAST MODPRO XTRA 3 25 - MNTR ([id number]) 1 [place] Carlos Unknown MARY:No Information Assigning Authority: FDA IMPLANT BREAST MODPRO XTRA 3 25 - MNTR ([id number]) 1 [place] Carlos Unknown MARY:No Information Assigning Authority: FDA
--- OUTSIDE RECORDS SUMMARY | 2023-04-20 07:54 | XMS_ITS | Continuity of Care Document ---
Author Name Unknown Organization [facility] Address [address] [place] [address]- Care Team Providers Care Chief Fundraising Officer Name Role Phone Rayshawn DUEÑAS, Anamaria Primary Care Physician [phone] Encounter [facility] [place] Date(s): 01/12/22 - 02/11/22 [facility] [address] [place] [address] Allergies, Adverse Reactions, Alerts Substance Reaction Severity Status sulfADIAZINE full body rash Active Pollen Active Medications doxycycline hyclate 100 mg oral capsule 1 capsule = 100 mg, By Mouth, 2 times a day, for 7 days, # 14 capsule, 0 Refills, Acute 02/14/22 16:26:00 EDT, 02/07/22 16:26:00 EDT, Capsule, [facility] #[id number], Partial fill upon patient request if the [...] MESH ALLOMAX HUMAN 16X20 - B JULES ([id number]) 1 [employer] Unknown MARY:No Information Assigning Authority: FDA MESH ALLOMAX HUMAN 16X20 - B JULES ([id number]) 1 [employer] Unknown MARY:No Information Assigning Authority: FDA IMPLANT BREAST MODPRO XTRA 3 25 - MNTR ([id number]) 1 [employer] [place] Unknown MARY:No Information Assigning Authority: FDA IMPLANT BREAST MODPRO XTRA 3 25 - MNTR ([id number]) 1 [place] Carlos Unknown MARY:No Information Assigning Authority: FDA
--- OUTSIDE RECORDS SUMMARY | 2023-04-20 07:54 | XMS_ITS | Continuity of Care Document ---
Author Name Unknown Organization [facility] shanell Address [address] [place] [address] [address] [place] [address]- Care Team Providers Care Mattress Weaver Name Role Phone Anamaria Tabares MD Primary Care Physician [phone] Encounter [facility] [place] Date(s): 06/08/22 - 08/19/22 [facility] [address] [place] [address] Drive [address] [place], [place] [address] Attending Physician: Kit Storey MD Allergies, Adverse Reactions, Alerts Substance Reaction [...] MRI Safety Implantable Status Assigning Authority Unknown [id number] Unknown 07/30/26 Unknown Unknown Active Unknown Procedure Provider Procedure Date Device Type Site Reconstruction Breast with Permanent Sekou Samuel MD 11/18/21 Unknown Chest Device Identifier Serial Number Lot or Batch Number Manufacturing Date Expiration Date Distinct Identification Code MRI Safety Implantable Status Assigning Authority Unknown [id number] Unknown 05/05/26 Unknown Unknown Active Unknown Procedure Provider Procedure Date Device Type Site Reconstruction Breast with Permanent Sekou Samuel MD 11/18/21 Unknown Chest Device Identifier Serial Number Lot or Batch Number Manufacturing Date Expiration Date Distinct Identification Code MRI Safety Implantable Status Assigning Authority Unknown [id number] Unknown 02/09/26 Unknown Unknown Active Unknown Procedure Provider Procedure Date Device Type Site Reconstruction Breast with Permanent Imp Walter DUEÑAS, Sekou Perez 11/18/21 Unknown Chest Device Identifier Serial Number Lot or Batch Number Manufacturing Date Expiration Date Distinct Identification Code MRI Safety Implantable Status Assigning Authority Unknown [id number] Unknown 02/09/26 Unknown Unknown Active Unknown Patient Care team information Care Team Personnel Name: Anamaria Tabares MD Position: [facility] Physician (General Medicine) Member Role: PCP Address: Address: [address] [place] [address]- Care Team Related Persons Name: ADELAIDE BAEZ Address: home [address] [place] [address]
--- OUTSIDE RECORDS SUMMARY | 2023-04-20 07:54 | XMS_ITS | Continuity of Care Document ---
Author Name Unknown Organization [facility] Nan shanell Address [address] [place] [address] [address] [place] [address]- Care Team Providers Care Silk Screen Printing Racker Name Role Phone Anamaria Tabares MD Primary Care Physician [place] [facility] [place] Date(s): 11/19/21 - 12/19/21 [facility] [address] [place], [place] [address] Allergies, Adverse Reactions, Alerts Substance [...] MESH ALLOMAX HUMAN 16X20 - B JULES ([id number]) 1 [employer] Unknown MARY:No Information Assigning Authority: FDA MESH ALLOMAX HUMAN 16X20 - B JULES ([id number]) 1 [place] Unknown MARY:No Information Assigning Authority: FDA IMPLANT BREAST MODPRO XTRA 3 25 - MNTR ([id number]) 1 [place] Unknown MARY:No Information Assigning Authority: FDA IMPLANT BREAST MODPRO XTRA 3 25 - MNTR ([id number]) 1 [place] Unknown MARY:No Information Assigning Authority: FDA
--- OUTSIDE RECORDS SUMMARY | 2023-04-20 07:54 | XMS_ITS | Continuity of Care Document ---
Author Name Unknown Organization [facility] Nan shanell Address [address] [place] [address] [address] [place] [address]- Care Team Providers Care Powerhouse Laborer Name Role Phone Anamaria Tabares MD Primary Care Physician Encounter [facility] [place] Date(s): 01/05/22 - 01/12/22 [facility] [address] [place], [place] [address] Attending Physician: Walter DUEÑAS, Sekou Perez Allergies, Adverse Reactions, Alerts Substance Reaction Severity Status sulfADIAZINE full body rash Active Pollen Active Problem List Condition Effective Dates Status Health Status Inform ant 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, estrogen receptor positive(Confirmed) 09/2021 Active Vital Signs Most recent to oldest [Reference Range]: 1 Height 174.7 cm (01/05/22 3:43 PM) Temperature [96.8-100.4 DegF] 97.6 DegF (01/05/22 3:43 PM) Temperature Route Temporal (01/05/22 3:43 PM) Social History Social History Type Response Smoking Status Never (less than 100 in lifetime) entered on: 10/27/21 Sex Medical Equipment Implanted Date:11/18/21Target Site:Chest Description Quantity MRI Company Model MESH ALLOMAX HUMAN 16X20 - B JULES ([id number]) 1 [employer] Unknown MARY:No Information Assigning Authority: FDA MESH ALLOMAX HUMAN 16X20 - B JULES ([id number]) 1 Bard Unknown MARY:No Information Assigning Authority: FDA IMPLANT BREAST MODPRO XTRA 3 25 - MNTR ([id number]) 1 [place] Carlos Unknown MARY:No Information Assigning Authority: FDA IMPLANT BREAST MODPRO XTRA 3 25 - MNTR ([id number]) 1 [place] Carlos Unknown MARY:No Information Assigning Authority: FDA
--- OUTSIDE RECORDS SUMMARY | 2023-04-20 07:54 | XMS_ITS | Continuity of Care Document ---
Author Name Unknown Organization [facility] Address [address] [place] [address]- Care Team Providers Care Electrical Machinist Name Role Phone Anamaria Tabares MD Primary Care Physician Encounter [facility] [place] Date(s): 01/13/22 - 02/12/22 [facility] [address] [place] [address] [place] Allergies, Adverse Reactions, Alerts Substance Reaction Severity Status sulfADIAZINE full body rash Active Pollen Active Medications doxycycline hyclate 100 mg oral capsule 1 capsule = 100 mg, By Mouth, 2 times a day, for 7 days, # 14 capsule, 0 Refills, Acute 02/14/22 16:26:00 EDT, 02/07/22 16:26:00 EDT, Capsule, [id number], Partial fill upon patient request if the [...] MESH ALLOMAX HUMAN 16X20 - B JULES ([id number]) 1 Bard Unknown MARY:No Information Assigning Authority: FDA MESH ALLOMAX HUMAN 16X20 - B JULES ([id number]) 1 Bard Unknown MARY:No Information Assigning Authority: FDA IMPLANT BREAST MODPRO XTRA 3 25 - MNTR ([id number]) 1 [place] [employer] Unknown MARY:No Information Assigning Authority: FDA IMPLANT BREAST MODPRO XTRA 3 25 - MNTR ([id number]) 1 [place] [employer] Unknown MARY:No Information Assigning Authority: FDA
--- OUTSIDE RECORDS SUMMARY | 2023-04-20 07:54 | XMS_ITS | Continuity of Care Document ---
Author Name Unknown Organization [facility] Nan shanell Address [address] [place] [address] [address] [place] [address]- Care Team Providers Care Senior Cytotechnologist Name Role Phone Rayshawn DUEÑAS, Anamaria Primary Care Physician Encounter [facility] Date(s): 01/25/22 - 02/24/22 [facility] Surgery [address] [place] [address] Drive [address] [place], [place] [address] Allergies, Adverse Reactions, Alerts Substance [...] MESH ALLOMAX HUMAN 16X20 - B JULES ([id number]) 1 Bard Unknown MARY:No Information Assigning Authority: FDA MESH ALLOMAX HUMAN 16X20 - B JULES ([id number]) 1 [employer] Unknown MARY:No Information Assigning Authority: FDA IMPLANT BREAST MODPRO XTRA 3 25 - MNTR ([id number]) 1 [place] [employer] Unknown MARY:No Information Assigning Authority: FDA IMPLANT BREAST MODPRO XTRA 3 25 - MNTR ([id number]) 1 [place] [employer] Unknown MARY:No Information Assigning Authority: FDA
--- OUTSIDE RECORDS SUMMARY | 2023-04-20 07:54 | XMS_ITS | Continuity of Care Document ---
Author Name Unknown Organization [facility] Nan shanell Address [address] [place] [address] [address] [place] [address]- Care Team Providers Care Senior Oracle Database Developer Name Role Phone Anamaria Tabares MD Primary Care Physician [phone] [place] [facility] [place] 06/20/22 [facility] Surgery [address] [place] [address] Drive [address] [place], [place] [address] Allergies, Adverse Reactions, Alerts Substance Reaction Severity [...] MRI Safety Implantable Status Assigning Authority Unknown [id number] Unknown 07/30/26 Unknown Unknown Active Unknown Procedure Provider Procedure Date Device Type Site Reconstruction Breast with Permanent Imp Sekou Watson MD 11/18/21 Unknown Chest Device Identifier Serial Number Lot or Batch Number Manufacturing Date Expiration Date Distinct Identification Code MRI Safety Implantable Status Assigning Authority Unknown [id number] Unknown 05/05/26 Unknown Unknown Active Unknown Procedure Provider Procedure Date Device Type Site Reconstruction Breast with Permanent Sekou Samuel MD 11/18/21 Unknown Chest Device Identifier Serial Number Lot or Batch Number Manufacturing Date Expiration Date Distinct Identification Code MRI Safety Implantable Status Assigning Authority Unknown [id number] 25 Unknown 02/09/26 Unknown Unknown Active Unknown Procedure Provider Procedure Date Device Type Site Reconstruction Breast with Permanent Imp Walter DUEÑAS, Sekou Perez 11/18/21 Unknown Chest Device Identifier Serial Number Lot or Batch Number Manufacturing Date Expiration Date Distinct Identification Code MRI Safety Implantable Status Assigning Authority Unknown [id number] 65 Unknown 02/09/26 Unknown Unknown Active Unknown Patient Care team information Personnel Name: Anamaria Tabares MD Address: Address: [address] [place] [address]
--- OUTSIDE RECORDS SUMMARY | 2023-04-20 07:54 | XMS_ITS | Continuity of Care Document ---
Author Name Unknown Organization [facility] Address [address] [place] [address]- Care Team Providers Care Public Policy Analyst Name Role Phone Rayshawn DUEÑAS, Anamaria Primary Care Physician [place] [facility] [place](s): 01/12/22 - 02/11/22 [facility] Care [address] [place] [address] Allergies, Adverse Reactions, Alerts Substance Reaction Severity Status sulfADIAZINE full body rash Active Pollen Active Medications doxycycline hyclate 100 mg oral capsule 1 capsule = 100 mg, By Mouth, 2 times a day, for 7 days, # 14 capsule, 0 Refills, Acute 02/14/22 16:26:00 EDT, 02/07/22 16:26:00 EDT, Capsule, [id number], Partial fill upon patient request if the [...] MESH ALLOMAX HUMAN 16X20 - B JULES ([id number]) 1 Bard Unknown MARY:No Information Assigning Authority: FDA MESH ALLOMAX HUMAN 16X20 - B JULES ([id number]) 1 [employer] Unknown MARY:No Information Assigning Authority: FDA IMPLANT BREAST MODPRO XTRA 3 25 - MNTR ([id number]) 1 [employer] Carlos Unknown MARY:No Information Assigning Authority: FDA IMPLANT BREAST MODPRO XTRA 3 25 - MNTR ([id number]) 1 [place] Carlos Unknown MARY:No Information Assigning Authority: FDA
--- OUTSIDE RECORDS SUMMARY | 2023-04-20 07:54 | XMS_ITS | Continuity of Care Document ---
Author Name Unknown Organization [facility] Nan shanell Address [address] [place] [address] [address] [place] [address]- Care Team Providers Care Lab Instructor Name Role Phone Anamaria Tabares MD Primary Care Physician [place] [facility] [place] - 05/16/22 [facility] Surgery [address] [place] [address] Drive [address] [place], [place] [address] Attending Physician: Sekou Watson MD Admitting Physician: Sekou Watson MD Allergies, Adverse Reactions, [...] MRI Safety Implantable Status Assigning Authority Unknown [id number] Unknown 07/30/26 Unknown Unknown Active Unknown Procedure Provider Procedure Date Device Type Site Reconstruction Breast with Permanent Imp Sekou Watson MD 11/18/21 Unknown Chest Device Identifier Serial Number Lot or Batch Number Manufacturing Date Expiration Date Distinct Identification Code MRI Safety Implantable Status Assigning Authority Unknown [id number] Unknown 05/05/26 Unknown Unknown Active Unknown Procedure Provider Procedure Date Device Type Site Reconstruction Breast with Permanent Imp Sekou Watson MD 11/18/21 Unknown Chest Device Identifier Serial Number Lot or Batch Number Manufacturing Date Expiration Date Distinct Identification Code MRI Safety Implantable Status Assigning Authority Unknown [id number] 25 Unknown 02/09/26 Unknown Unknown Active Unknown Procedure Provider Procedure Date Device Type Site Reconstruction Breast with Permanent Imp Walter DUEÑAS, Sekou Perez 11/18/21 Unknown Chest Device Identifier Serial Number Lot or Batch Number Manufacturing Date Expiration Date Distinct Identification Code MRI Safety Implantable Status Assigning Authority Unknown [id number] 65 Unknown 02/09/26 Unknown Unknown Active Unknown Care Team Personnel Name: Anamaria Tabares MD Address: [address] [place] [address]
--- OUTSIDE RECORDS SUMMARY | 2023-04-20 07:54 | XMS_ITS | Continuity of Care Document ---
Author Name Unknown Organization [facility] Address [address] [place] [address] [address] [place] [address]- Care Team Providers Care Flash Developer Name Role Phone Anamaria Tabares MD Primary Care Physician [place] [facility] [place] - 10/22/[address] [place] [address]- Allergies, Adverse Reactions, Alerts Substance Reaction Severity [...] MRI Safety Implantable Status Assigning Authority Unknown [id number] Unknown 07/30/26 Unknown Unknown Active Unknown Procedure Provider Procedure Date Device Type Site Reconstruction Breast with Permanent Ilda Watson MD, Sekou Perez 11/18/21 Unknown Chest Device Identifier Serial Number Lot or Batch Number Manufacturing Date Expiration Date Distinct Identification Code MRI Safety Implantable Status Assigning Authority Unknown [id number] Unknown 05/05/26 Unknown Unknown Active Unknown Procedure Provider Procedure Date Device Type Site Reconstruction Breast with Permanent Ilda Watson MD, Sekou Perez 11/18/21 Unknown Chest Device Identifier Serial Number Lot or Batch Number Manufacturing Date Expiration Date Distinct Identification Code MRI Safety Implantable Status Assigning Authority Unknown [id number] 25 Unknown 02/09/26 Unknown Unknown Active Unknown Procedure Provider Procedure Date Device Type Site Reconstruction Breast with Permanent Sekou Samuel MD 11/18/21 Unknown Chest Device Identifier Serial Number Lot or Batch Number Manufacturing Date Expiration Date Distinct Identification Code MRI Safety Implantable Status Assigning Authority Unknown [id number] 4 [id number] 65 Unknown 02/09/26 Unknown Unknown Active Unknown Patient Care team information Care Team Personnel Name: Anamaria Tabares MD Position: [facility] Physician (General Medicine) Member Role: PCP Address: Address: [address] [place] [address]- Care Team Related Persons Name: ADELAIDE BAEZ Address: [address] [address]
--- OUTSIDE RECORDS SUMMARY | 2023-04-20 07:54 | XMS_ITS | Continuity of Care Document ---
Author Name Unknown Organization [facility] Nan shanell Address [address] [place] [address] [address] [place] [address]- Care Team Providers Care Cutter Out Name Role Phone Anamaria Tabares MD Primary Care Physician Encounter [facility] [place] Date(s): 07/13/22 - 08/12/22 [facility] [address] [place], [place] [address] Allergies, Adverse Reactions, Alerts Substance Reaction [...] MRI Safety Implantable Status Assigning Authority Unknown [id number] Unknown 07/30/26 Unknown Unknown Active Unknown Procedure Provider Procedure Date Device Type Site Reconstruction Breast with Permanent Imp Sekou Watson MD 11/18/21 Unknown Chest Device Identifier Serial Number Lot or Batch Number Manufacturing Date Expiration Date Distinct Identification Code MRI Safety Implantable Status Assigning Authority Unknown [id number] Unknown 05/05/26 Unknown Unknown Active Unknown Procedure Provider Procedure Date Device Type Site Reconstruction Breast with Permanent Sekou Samuel MD 11/18/21 Unknown Chest Device Identifier Serial Number Lot or Batch Number Manufacturing Date Expiration Date Distinct Identification Code MRI Safety Implantable Status Assigning Authority Unknown [id number] 25 Unknown 02/09/26 Unknown Unknown Active Unknown Procedure Provider Procedure Date Device Type Site Reconstruction Breast with Permanent Imp Walter DUEÑAS, Sekou Perez 11/18/21 Unknown Chest Device Identifier Serial Number Lot or Batch Number Manufacturing Date Expiration Date Distinct Identification Code MRI Safety Implantable Status Assigning Authority Unknown [id number] 65 Unknown 02/09/26 Unknown Unknown Active Unknown Patient Care team information Care Team Personnel Name: Anamaria Tabares MD Position: [facility] Physician (General Medicine) Member Role: PCP Address: Address: [address] [place] [address]- Care Team Related Persons Name: ADELAIDE BAEZ Address: home [address] [place] [address]
--- OUTSIDE RECORDS SUMMARY | 2023-04-20 07:54 | XMS_ITS | Continuity of Care Document ---
Author Name Unknown Organization [facility] Nan shanell Address [address] [place] [address] [address] [place] [address]- Care Team Providers Care Hide Stretcher Hand Name Role Phone Anamraia Tabares MD Primary Care Physician [phone] Encounter [facility] Date(s): 09/28/22 - 10/28/22 [facility] Surgery [address] [place] [address] Drive [address] [place], [place] [address] Allergies, Adverse Reactions, Alerts Substance Reaction [...] MRI Safety Implantable Status Assigning Authority Unknown [id number] Unknown 07/30/26 Unknown Unknown Active Unknown Procedure Provider Procedure Date Device Type Site Reconstruction Breast with Permanent Sekou Samuel MD 11/18/21 Unknown Chest Device Identifier Serial Number Lot or Batch Number Manufacturing Date Expiration Date Distinct Identification Code MRI Safety Implantable Status Assigning Authority Unknown [id number] Unknown 05/05/26 Unknown Unknown Active Unknown Procedure Provider Procedure Date Device Type Site Reconstruction Breast with Permanent Sekou Samuel MD 11/18/21 Unknown Chest Device Identifier Serial Number Lot or Batch Number Manufacturing Date Expiration Date Distinct Identification Code MRI Safety Implantable Status Assigning Authority Unknown [id number] 25 Unknown 02/09/26 Unknown Unknown Active Unknown Procedure Provider Procedure Date Device Type Site Reconstruction Breast with Permanent Sekou Samuel MD 11/18/21 Unknown Chest Device Identifier Serial Number Lot or Batch Number Manufacturing Date Expiration Date Distinct Identification Code MRI Safety Implantable Status Assigning Authority Unknown [id number] 65 Unknown 02/09/26 Unknown Unknown Active Unknown Patient Care team information Care Team Personnel Name: Anamaria Tabares MD Position: [facility] Physician (General Medicine) Member Role: PCP Address: Address: [address] [place] [address]- Care Team Related Persons Name: ADELAIDE BAEZ Address: [address] [address]
[2023-04-20 08:28] VITALS: BP 117/84; PULSE 72; RESP 16; TEMP 36.5; O2SAT 99; BMI 23.4
[2023-04-20 08:31] LABS: UPreg QC Valid YES; Urine Pregnancy NEGATIVE (NEGATIVE)
[2023-04-20] MEDS: Lactated Ringers 1,000 ML 100 ML IVCONT (08:42)
--- NOTE | 2023-04-20 08:54 | MHC.SHP ---
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 Normal Pap smear Surgical History History of appendectomy Present Medications: see Short Stay Collaborative assessment Allergies: Allergies Allergy/AdvReac Type Severity Reaction Status Date / Time Sulfa (Sulfonamide Allergy Intermediate HIVES, rash Verified 02/28/23 15:40 Antibiotics) [SULFA (SULFONAMIDE ANTIBIOTICS)] Latex, Natural Rubber Allergy Mild rash Verified 02/28/23 15:40 Review of Systems Review of Systems Comment: 10 point ROS negative except as above Exam Surgical H&P Exam: Normal: HEENT, Normal: Heart, Normal: Lungs, Normal: Extremities, Normal: Abdomen, Normal: Skin and Normal: Neurological Plan Diagnosis/Plan: Unchanged I have reviewed the history and physical and performed a pertinent physical examination on my patient. No changes have occurred unless specified. Time Spent With Patient Time: Total time managing care of this patient today ____ minutes.
[2023-04-20] MEDS: Metoclopramide HCl 10 MG/2 ML VIAL IVPUSH (09:44)
--- NOTE | 2023-04-20 10:21 | P.OP_ITS ---
Operative Note Operative Note Date of Service: 04/20/23 Narrative: Procedure: Colonoscopy Indication: Intermittent rectal bleeding Endoscopist: Piper Heck MD Anesthesia Provider: Natalie Kern CRNA Anesthesia type: MAC Instrument: Olympus [id number]-H190L Consent: Indication, risks vs benefits, and alternatives were discussed with the patient who gave written informed consent to proceed. EKG, pulse, pulse oximetry and blood pressure were monitored throughout the procedure. Please see anesthesia flowsheet. Procedure: The patient was brought to the procedure room and placed in the left lateral decubitus position. IV medications were administered by the anesthesia provider in attendance. A digital rectal exam was performed which was normal. The colonoscope was then inserted through the anus and advanced through the colon to the cecum at 75 cm,and terminal ileum. Mucosa was carefully examined under high definition white light as the instrument was slowly withdrawn in a retrograde panoramic fashion. Retroflexion was performed in rectum. The procedure was not difficult. There were no immediate obvious complications. The quality of the prep was BBPS: 3+3+3 = excellent Withdrawal time 7 minutes. Limitations: No limitations. Findings: Mucosa: Normal to cecum and terminal ileum. Protruding lesions: * Medium internal hemorrhoids without stigmata of recent bleeding. Impression: 1. Normal colon and terminal ileum mucosa 2. Internal hemorrhoids Recommendations: - Repeat colonoscopy for asymptomatic colorectal cancer screening in 10 years
[2023-04-20 10:22] VITALS: BP 110/61; PULSE 71; RESP 16; TEMP 36.2; O2SAT 98
[2023-04-20 10:37] VITALS: BP 136/89; PULSE 71; RESP 17; TEMP 36.1; O2SAT 100
== END 2023-04-20 11:00 | disposition home or self-care (01) ==
PROVIDERS: Nurse Practitioner; PCP Internal Medicine; Visit Provider Internal Medicine
PROC: 0DJD8ZZ Inspection of Lower Intestinal Tract, Via Natural or Artificial Opening Endoscopic (ICD-10-PCS; CPT 45378; principal; 2023-04-20 09:30)
DX: K64.8 Other hemorrhoids (principal); K62.5 Hemorrhage of anus and rectum; Z83.71 Family history of colonic polyps; C50.919 Malignant neoplasm of unspecified site of unspecified female breast; Z79.899 Other long term (current) drug therapy
CPT/HCPCS: 45378; 81025; J2765

== ENCOUNTER → 2023-04-20 07:49 | Outpatient (BNV) | payer OTHER, SELFPAY | PROVIDERS: PCP Internal Medicine; Visit Provider Internal Medicine | DX: K62.5 Hemorrhage of anus and rectum (principal); K64.8 Other hemorrhoids | CPT/HCPCS: 45378 ==

== ENCOUNTER 2023-05-09 09:00 | Outpatient (AMB) | payer OTHER, SELFPAY ==
--- NOTE | 2023-05-09 09:00 | MHC.OFFVIS ---
Intake Intake Visit Reasons: s/p colon Intake Note: Shruti presents as a video call today for results to her colonoscopy. CC: No concerns since her procedure. Allergies Sulfa (Sulfonamide Antibiotics) [SULFA (SULFONAMIDE ANTIBIOTICS)] Allergy (Intermediate, Verified 02/28/23 15:40) HIVES, rash Latex, Natural Rubber Allergy (Mild, Verified 02/28/23 15:40) rash HPI HPI Comments History of Present Illness Details 42 y.o F with hx of L breast ca stage II s/p double mastectomy, chemo XRT, currently on anastrazole who is here for follow up. 12/20/22: Main CC today is occasional rectal pressure and BRBPR. States that during the chemotherapy her constipation got worse to the point of anal fissure/tearing. Now since Sep BM are a bit more regular 3 times a week but still lumpy and requires considerable straining. Sometimes sees blood on wiping. She is primarily here due to fam hx of polyps in her maternal grandfather, see below. Fam hx: Mat grandfather had advanced polyps so mother gets checked frequently but mother has never had any advanced polyps. Pat grandmother: bladder ca Mat aunt: ovarian ca 02/28/23: Reports persistent intermittent BRBPR and minimal improvement in constipation. Can sometimes also palpate a small lump protruding through open anal opening after BM. Given fam hx she is quite concerned. 04/20/23: Mucosa: Normal to cecum and terminal ileum. Protruding lesions: Medium internal hemorrhoids without stigmata of recent bleeding. 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 Normal Pap smear Surgical History (Updated 05/09/23 @ 09:01 by HI Ortiz) History of appendectomy Hx of bilateral mastectomy Hx of colonoscopy Family History Maternal Grandfather Colon polyps Social History Housing: House Patient Tobacco Use Status: Never used Tobacco e-Cigarette/Vaping Use: Never Used Second Hand Smoke Exposure: No service: No Current occupational status: employed Cognitive needs: No Hearing needs: No Vision needs: No Female Reproductive History Menstrual Age of Menarche: 13 Review of Systems Const All systems reviewed & are unremarkable except as noted in HPI and below Physical Exam Vital Signs: NAd, nontoxic appearing Nonicteric Speaking in full sentences No dysphasia or dysarthria Assessment & Plan Assessment & Plan (1) FHx: colonic polyps: Code(s): Z83.71 - Family history of colonic polyps (2) Bright red rectal bleeding: Code(s): K62.5 - Hemorrhage of anus and rectum (3) Hemorrhoids: Code(s): K64.9 - Unspecified hemorrhoids Plan Intermittent rectal bleeding 2/2 hemorrhoids. No other abnormalities such as fissure, ulcer, polyp, colitis noted on exam. Repeat colonoscopy for asymptomatic colorectal cancer screening recommended in 10 years. Follow up PRN Telehealth Telehealth Location of provider rendering services: practice address Location of patient: address on file Patient Identification confirmed using: Name, : Yes Telehealth method: video Patient verbally consented to treatment: Yes Patient verbally consented to billing insurance company: Yes Patient informed of any privacy concerns related to visit: Yes Minutes spent on Phone/Video with Pt.: 7 Coding Level of Care Code Tele Est Pt Level 3 (57386) Diagnoses FHx: colonic polyps Z83.71 Bright red rectal bleeding K62.5 Hemorrhoids K64.9
== END 2023-05-09 09:21 | disposition home or self-care (01) ==
LOC: HO.HGI 09:00
PROVIDERS: PCP Internal Medicine; Visit Provider Internal Medicine
DX: K62.5 Hemorrhage of anus and rectum (principal); Z83.71 Family history of colonic polyps; K64.9 Unspecified hemorrhoids
CPT/HCPCS: 99213

== ENCOUNTER → 2023-05-09 09:00 | Outpatient (BNVA) | payer OTHER, SELFPAY | PROVIDERS: PCP Internal Medicine; Visit Provider Internal Medicine ==

== ENCOUNTER 2023-08-23 14:09 | Outpatient (AMB) | payer OTHER, SELFPAY ==
--- NOTE | 2023-08-23 14:26 | MHC.PC.OV ---
Vital Signs 08/23/23 14:29 Height 5 ft 10 in Weight 170 lb BMI 24.4 BP 138/78 Blood Pressure Location Lt brachial Position Sitting Pulse 73 Pulse Source Pulse Oximeter Pulse Oximetry (%) 99 Oxygen Delivery Method Room Air Intake Visit Reasons: Intermittent chest pain Intake Note: Pt is here today for a sivk visit. Pt c/o chest pain that moves from R side to left side. Pt states that it comes and goes since . Allergies Sulfa (Sulfonamide Antibiotics) [SULFA (SULFONAMIDE ANTIBIOTICS)] Allergy (Intermediate, Verified 08/23/23 14:33) HIVES, rash Latex, Natural Rubber Allergy (Mild, Verified 08/23/23 14:33) rash Medication List - Last Reconciled 08/23/23 by Anamaria Tabares MD anastrozole 1 mg PO DAILY cholecalciferol (vitamin D3) 10 mcg PO DAILY leuprolide (Lupron Depot) 3.75 mg IM Q4W meloxicam 15 mg PO DAILY Saccharomyces boulardii (Daily Probiotic (S. boulardii)) PO vitamin B complex (B Complex-Vitamin B12 tablet) 1 tab PO DAILY Tobacco use date assessed: 08/23/23 Dental Screening Dental Screen Date: 08/23/23 Did you have a dental visit in the last 12 months?: Yes Did you have a dental problem in the last 6 months where you did not have access to dental care?: No Was dental information given to patient?: Patient has dentist HPI Intermittent chest pain HPI Details Pt c/o fluctuating upper chest pain on and off in different areas lasting a few seconds started after working out 1 week. Patient denies shortness of breath fever chills cough pleurisy nausea vomiting diaphoresis palpitations. she has been under stress planning left breast surgery next month. Patient has been on anastrozole and Lupron injections for breast cancer and reports intermittent hot flashes. Patient exercises 3 to 4 times a week at the gym. She denies depression but has been feeling anxious. 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 Invasive lobular carcinoma of breast in female Abnormal mammogram of left breast Normal Pap smear Annual physical exam Surgical History Hx of colonoscopy Hx of bilateral mastectomy History of appendectomy Family History Maternal Grandfather Colon polyps Social History Housing: House Patient Tobacco Use Status: Never used Tobacco e-Cigarette/Vaping Use: Never Used Second Hand Smoke Exposure: No service: No Current occupational status: employed Cognitive needs: No Hearing needs: No Vision needs: No Female Reproductive History Menstrual Age of Menarche: 13 Questionnaire Thrive Questionnaire Date Thrive assessed: 10/13/22 I am a: Patient What is your living situation today?: I have a steady place to live Within the past 12 months, did the food you bought not last and you didn't have the money to get more?: Never true Within the past 12 months, did you worry whether your food would run out before you got money to buy more?: Never true AUDIT C Alcohol Use Questionnaire (AUDIT-C) 1. How often do you have a drink containing alcohol?: 2-3 times a week 2. How many drinks containing alcohol do you have on a typical day when you are drinking?: 1 or 2 3. How often do you have six or more drinks on one occasion?: Never Total Score: 3 AUDREY-7 AMB Questionnaire AUDREY-7 Date AUDREY - 7 assessed: 10/13/22 Source: Developed by Drs. Arun Weller, Lien Lee, Antwon Moses and colleagues, with an educational meli from [employer]. Review of Systems Const All systems reviewed & are unremarkable except as noted in HPI and below Reports no additional complaints Eyes Reports no additional complaints ENT Reports no additional complaints Card Reports no additional complaints GI Reports no additional complaints Physical exam (Primary Care) Vital Signs: Last Vital Signs Pulse 73 08/23/23 14:29 BP 138/78 08/23/23 14:29 Pulse Ox 99 08/23/23 14:29 Oxygen Delivery Method Room Air 08/23/23 14:29 BMI result Body Mass Index 24.4 Tobacco/Smoking Status: Tobacco use Status Tobacco use date assessed 08/23/23 08/23/23 14:37 Patient Tobacco Use Status Never used Tobacco 08/23/23 14:37 e-Cigarette/Vaping Use Never Used 08/23/23 14:29 Thrive Assessment: Date of Thrive Assessment Date Thrive assessed 10/13/22 08/23/23 14:29 Const General: no acute distress HENMT Head: Yes normal to inspection Ears: hearing grossly normal bilaterally Mouth: Normal oral and palatal mucosa present Chest Chest palpation & inspection: normal palpation of entire chest wall Resp Effort & Inspection: normal respiratory effort Auscultation: clear to auscultation bilaterally Cardio Rhythm: regular rhythm Heart sounds: S1 normal heart sound present and S2 normal heart sound present Assessment and Plan Assessment & Plan (1) Anemia: Code(s): D64.9 - Anemia, unspecified Plan: check CBC (2) Chest pain: Code(s): R07.9 - Chest pain, unspecified Plan: EKG SHOWED NORMAL SINUS RHYTHM NO ST-T CHANGES, CHECK BASIC BLOOD WORK AND D-DIMER. 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
[2023-08-23 14:29] VITALS: BP 138/78; PULSE 73; O2SAT 99; BMI 24.4
== END 2023-08-23 15:21 | disposition home or self-care (01) ==
PROVIDERS: PCP Internal Medicine; Visit Provider Internal Medicine
DX: D64.9 Anemia, unspecified (principal); R07.9 Chest pain, unspecified; D05.02 Lobular carcinoma in situ of left breast
CPT/HCPCS: 99213

== ENCOUNTER 2023-08-23 15:21 | Outpatient (REF) | payer OTHER, SELFPAY ==
--- NOTE | ~2023-08-23 | XR_ITS ---
EXAMINATION: XR CHEST CLINICAL INFORMATION: Chest pain. COMPARISON: 12/06/2018. TECHNIQUE: Frontal view of the chest was obtained. FINDINGS: The cardiomediastinal silhouette is stable. A radiopaque structure overlies the left mid lung field likely external to the patient. There is no focal parenchymal consolidation or pleural effusion. The bony structures and soft tissues are unremarkable. XR/XR chest 1V IMPRESSION: No evidence for active cardiopulmonary disease.
[2023-08-23 16:43] LABS: MANUAL DIFF FLAG NO
[2023-08-23 17:05] LABS: Basophils Percent Auto 0.3 % (0-2); Eosinophils Absolute Auto 0.1 X10*3/uL (0.0-0.4); Eosinophils Percent Auto 0.8 % (0-4); Hematocrit 38.2 % (37.0-47.0); Hemoglobin 12.5 g/dl (12.0-16.0); Imm Gran Abs Auto 0.01 X10*3/uL (0.00-0.03); Imm Gran Pct Auto 0.2 % (0.0-0.4); Lymphocytes Absolute Auto 1.4 X10*3/uL (1.2-4.9); Lymphocytes Percent Auto 22.6 % (20-40); Mean Corpuscular HGB Conc 32.7 g/dl (31.0-35.0); Mean Corpuscular Hemoglobin 30.3 pg (27.0-33.0); Mean Corpuscular Volume 92.5 fL (80.0-98.0); Mean Platelet Volume 9.5 fL (9.4-12.3); Monocytes Absolute Auto 0.4 X10*3/uL (0.1-1.2); Monocytes Percent Auto 5.8 % (2-11); Neutrophils Absolute Auto 4.3 x10*3/uL (2.0-8.3); Neutrophils Percent Auto 70.3 % (45-73); Platelet Count 232 X10*3/uL (160-400); Red Blood Count 4.13 X10*6/uL (4.20-5.50); Red Cell Distribution Width 11.8 % (11.0-16.0); White Blood Count 6.1 X10*3/uL (4.8-10.8)
[2023-08-23 17:32] LABS: Alanine Aminotransferase 26 U/L (0-31); Albumin Level 4.5 g/dL (3.5-5.0); Alkaline Phosphatase 77 U/L (39-117); Anion Gap 13 (12-20); Aspartate Amino Transferase 32 U/L (5-31); Bilirubin Total 0.4 mg/dL (0.0-1.0); Blood Urea Nitrogen 18 mg/dL (9-16); Calcium 9.8 mg/dL (8.4-10.2); Carbon Dioxide 27 mmol/L (22-29); Chloride 106 mmol/L (96-108); Estimated Glomerular Filt Rate > 60; Glucose Random 95 mg/dL (60-115); Iron 98 mcg/dL (30-160); Percent Iron Saturation 30 % (15-50); Potassium 4.2 mmol/L (3.3-5.1); Sodium 142 mmol/L (135-145); Total Iron Binding Capacity 322 mcg/dL (228-428); Unsaturated Iron Binding 224 ug/dL
[2023-08-23 17:46] LABS: D Dimer High Sensitivity < 150 NG/ML
== END 2023-08-23 15:22 | disposition home or self-care (01) ==
LOC: HO.HMGCX 15:21
PROVIDERS: PCP Internal Medicine; Visit Provider Internal Medicine
DX: R07.9 Chest pain, unspecified (principal); D64.9 Anemia, unspecified; D05.02 Lobular carcinoma in situ of left breast
CPT/HCPCS: 36415; 71045; 80053; 83540; 85025; 85379

== ENCOUNTER 2023-12-19 10:55 | Outpatient (AMB) | payer OTHER, SELFPAY ==
[2023-12-19 11:05] VITALS: BP 130/60; PULSE 78; RESP 12; O2SAT 97; BMI 23.5
--- NOTE | 2023-12-19 11:05 | A.OFFPC_ITS ---
Vital Signs 12/19/23 11:05 Height 5 ft 10 in Weight 164 lb BMI 23.5 BP 130/60 Blood Pressure Location Rt brachial Position Sitting Respiration 12 Pulse 78 Pulse Source Pulse Oximeter Pulse Oximetry (%) 97 Oxygen Delivery Method Room Air Intake Visit Reasons: transfer from [facility]/ Intake Note: Patient is here to transfer care from [facility] to [facility] and she is looking to have her yearly physical. Patient has no concerns at this time. Cover Inspector Required: No Accompanied by: Self / Same As Patient Allergies Sulfa (Sulfonamide Antibiotics) [SULFA (SULFONAMIDE ANTIBIOTICS)] Allergy (Intermediate, Verified 12/19/23 11:10) HIVES, rash Latex, Natural Rubber Allergy (Mild, Verified 12/19/23 11:10) rash Medication List - Last Reconciled 12/19/23 by Shruti Robbins, [facility]- anastrozole 1 mg PO DAILY cholecalciferol (vitamin D3) 10 mcg PO DAILY [id number] 750 mg-644 mg- 30 mg-1 mg (Osteo Bi-Flex Triple Strength) 2 tabs PO DAILY leuprolide (Lupron Depot) 3.75 mg IM Q4W Saccharomyces boulardii (Daily Probiotic (S. 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 Shows to to hemorrhoids, no other significant abnormality such as fissure, ulcer, polyp, or colitis. Repeat colonoscopy for asymptomatic colorectal cancer screening recommended in 10 years (2032) DEXA October 2022 within normal limits Pap Leah Sorenson due for annual this year. Mammo UTD Here today for CPE Has routine dental and Optho care. Routine f/u with specialists. Last Summer back pain L lower back, radiated into LLQ. Had imaging done at [facility]; no back pain since this time. Likely related to Lupron. 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 Invasive lobular carcinoma of breast in female Abnormal mammogram of left breast Normal Pap smear Annual physical exam Surgical History Hx of colonoscopy Hx of bilateral mastectomy History of appendectomy Family History Maternal Grandfather Colon polyps Social History (Updated 12/19/23 @ 11:14 by Madelin Bailey CMA) Household Members: Spouse and Children Household Members Other:: 2 children Housing: House Are you a primary neonatal intensive care nurse to a significant other at home: No Do you presently have visiting nurse or other home services: No 75 years or older and lives alone: No Alcohol intake: current Alcohol intake frequency: holidays/special occasions only Patient Tobacco Use Status: Never used Tobacco e-Cigarette/Vaping Use: Never Used Second Hand Smoke Exposure: No service: No Current occupational status: employed Current occupation: [employer] Cognitive needs: No Hearing needs: No Vision needs: No Female Reproductive History Menstrual Age of Menarche: 13 Questionnaire PHQ-9 Over the last 2 weeks, how often have you been bothered by any of the following problems? 1. Little interest or pleasure in doing things: not at all 2. Feeling down, depressed, or hopeless: not at all 3. Trouble falling or staying asleep, or sleeping too much: not at all 4. Feeling tired or having little energy: not at all 5. Poor appetite or overeating: not at all 6. Feeling bad about yourself - or that you are a failure or have let yourself or your family down: not at all 7. Trouble concentrating on things, such as reading the newspaper or watching television: not at all 8. Moving or speaking so slowly that other people could have noticed. Or the opposite - being so fidgety or restless that you have been moving around a lot more than usual: not at all 9. Thoughts that you would be better off or of hurting yourself in some way: not at all Total score: 0 Depression Screening Interpretation: Negative Depression Screening Done: Yes 51112 - PHQ-9 Billing: Yes Source: Developed by Drs. Arun Weller, Lien Lee, Antwon Moses and colleagues, with an educational meli from [employer]. Thrive Questionnaire Date Thrive assessed: 12/19/23 I am a: Patient What is your living situation today?: I have a steady place to live Within the past 12 months, did the food you bought not last and you didn't have the money to get more?: Never true Within the past 12 months, did you worry whether your food would run out before you got money to buy more?: Never true Do you have trouble paying for medicines?: No Do you have trouble getting transportation to medical appointments?: No Do you have trouble paying your heating and electricity bill?: No Do you have trouble taking care of your child, family member or friend?: No Do you have trouble with day-to-day activities such as bathing, preparing meals, shopping, managing finances, etc.?: No Are you currently unemployed and looking for a job?: No Are you interested in more education?: No Please select the resources that you would like help with: None Currently or been in a relationship where the following occur: no concerns reported THRIVE Score: 0 AUDIT C Alcohol Use Questionnaire (AUDIT-C) 1. How often do you have a drink containing alcohol?: Monthly or less 2. How many drinks containing alcohol do you have on a typical day when you are drinking?: 1 or 2 3. How often do you have six or more drinks on one occasion?: Never Total Score: 1 Score Reviewed/Action Taken: Yes AUDREY-7 AMB Questionnaire AUDREY-7 Date AUDREY - 7 assessed: 12/19/23 Feeling nervous, anxious, or on edge: 0 = Not at all Not being able to stop or control worryin = Not at all Worrying too much about different things: 0 = Not at all Trouble relaxin = Not at all Being so restless that it is hard to sit still: 0 = Not at all Becoming easily annoyed or irritable: 0 = Not at all Feeling afraid as if something awful might happen: 0 = Not at all Total AUDREY-7 score (0-4 normal; 5-9 mild; 10-14 moderate; 15-21 severe): 0 Source: Developed by Drs. Arun Weller, Lien Lee, Antwon Moses and colleagues, with an educational meli from [employer]. AUDREY-7 Assessment Billing AUDREY-7 Assessment Tool: AUDREY-7 Assessment 67139 Review of Systems Const Details: Constitutional: Denies fever. Skin: Denies rash. Eye: Denies eye pain. ENMT: Denies sore throat and nasal congestion. Respiratory: Denies shortness of breath and cough. Gastrointestinal: Denies nausea, vomiting or abdominal pain. Cardiovascular: Denies chest pain and syncope. Genitourinary: Denies dysuria. Musculoskeletal: Denies back pain and extremity pain. Neurologic: Denies headaches, confusion, and weakness. Psychiatric: Denies suicidal thoughts and substance abuse. Allergy/ Immunologic: Denies impaired immunity. Physical exam (Primary Care) Vital Signs: Last Vital Signs Pulse 78 12/19/23 11:05 Resp 12 12/19/23 11:05 BP 130/60 12/19/23 11:05 Pulse Ox 97 12/19/23 11:05 Oxygen Delivery Method Room Air 12/19/23 11:05 BMI result Body Mass Index 23.5 Tobacco/Smoking Status: Tobacco use Status Tobacco use date assessed 12/19/23 12/19/23 11:16 Patient Tobacco Use Status Never used Tobacco 12/19/23 11:16 e-Cigarette/Vaping Use Never Used 12/19/23 11:16 PHQ-9: PHQ-9 Score PHQ-9: Total score 0 12/19/23 11:16 Depression Screening Interpretation: Negative Thrive Assessment: Date of Thrive Assessment Date Thrive assessed 12/19/23 12/19/23 11:16 Currently or been in a relationship where the following occur: no concerns reported Const Other: General: Well developed, well nourished, in no acute distress. Appears stated age. Head: Normocephalic, atraumatic. Eyes: Pupils are equal, round and reactive to light and accommodation. Conjunctivae are clear. Vision grossly normal. Ears: TMs clear AU, EACS WNL Nose: Patent, without discharge. Mouth: There are no ulcers or lesions noted. No inflammation, no post nasal drip, no plaques nor exudates. Neck: Supple, no adenopathy or thyromegaly. Lungs: Clear to auscultation bilaterally. No rales, rhonchi or wheeze noted. Good air flow in all cintron. Heart: Regular rate and rhythm. No murmurs, click, rubs or gallops are noted. Abdomen: Bowel sounds present in all quadrants. Abdomen was not palpated today given the postoperative state. A large transverse lower abdominal incision is well approximated. Surgical scar around umbilicus is also well approximated. Musculoskeletal: Joints are nontender, without swelling, redness, or effusions. Range of motion is observed to be normal. Pulses: Peripheral pulses are equal and palpable bilaterally. Extremities: No clubbing, cyanosis nor edema is noted. Neurologic: Gait and station normal. Cranial Nerves 2-12 intact. Motor strength grossly symmetrical and intact. No sensory loss. Balance normal. Skin: No rashes, ulcers, or lesions noted. Turgor is good. Skin color is good. Hair and nails are without abnormalities. Psych: Normal eye contact, affect and mood appropriate, and normal interactions. Patient is alert and appropriate to context. Assessment and Plan Assessment & Plan (1) Annual physical exam: Comment: Up-to-date on her screenings. Recommend that she check the [place] vaccine registry to see if she is up-to-date on her Tdap. If she has not she can get this at the pharmacy where she can certainly come back to the office. I have sent a message to the solar sales representative to see if she would be appropriate for a 5 year recall for colonoscopy given her breast cancer state. She had a colonoscopy done at age 43 in 2022 and this was within normal limits. At the time of the closing of this note waiting for reply. I will update the patient once I hear back from the specialist. Code(s): Z00.00 - Encounter for general adult medical examination without abnormal findings (2) 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: Comment: s/p jameson mastectomy, RTx and Chemo 10/03, on Lupron inj 10/04 and Anastrozole Managed by [facility]. Code(s): D05.02 - Lobular carcinoma in situ of left breast (3) Artificial menopause: Comment: Due to Lupron. DEXA done October 2022 within normal limits. On vitamin-D supplement. Code(s): N95.8 - Other specified menopausal and perimenopausal disorders (4) Anemia: Comment: Self-reported in the posts operative state during most recent surgery in October. We will update labs. Code(s): D64.9 - Anemia, unspecified Qualifiers: Anemia type: unspecified type Qualified Code(s): D64.9 - Anemia, unspecified Plan: Return to office in 1 year for a physical sooner as needed Orders: Orders LDL Cholesterol Direct Today D05.02 - Lobular carcinoma in situ of left breast, D64.9 - Anemia, unspecified, N95.8 - Other specified menopausal and perimenopausal disorders Comprehensive Met. Panel Today D05.02 - Lobular carcinoma in situ of left breast, D64.9 - Anemia, unspecified, N95.8 - Other specified menopausal and perimenopausal disorders Vitamin D 1,25 dihydroxy Today D05.02 - Lobular carcinoma in situ of left breast, D64.9 - Anemia, unspecified, N95.8 - Other specified menopausal and perimenopausal disorders Microalbumin, Random (w Creat) Today D05.02 - Lobular carcinoma in situ of left breast, D64.9 - Anemia, unspecified, N95.8 - Other specified menopausal and perimenopausal disorders IRON PROFILE Today D05.02 - Lobular carcinoma in situ of left breast, D64.9 - Anemia, unspecified, N95.8 - Other specified menopausal and perimenopausal disorders Vitamin B12 and Folate Today D05.02 - Lobular carcinoma in situ of left breast, D64.9 - Anemia, unspecified, N95.8 - Other specified menopausal and perimenopausal disorders Hemoglobin A1c Today D05.02 - Lobular carcinoma in situ of left breast, D64.9 - Anemia, unspecified, N95.8 - Other specified menopausal and perimenopausal disorders TSH reflex Free T4 Today D05.02 - Lobular carcinoma in situ of left breast, D64.9 - Anemia, unspecified, N95.8 - Other specified menopausal and perimenopausal disorders Complete Blood Count no Diff Today D05.02 - Lobular carcinoma in situ of left breast, D64.9 - Anemia, unspecified, N95.8 - Other specified menopausal and perimenopausal disorders Patient Instructions: [email or web address] Look up Td (Tdap) vaccine, due in the 10 years Health screenings for women ages 18 to 39 You should visit your health care provider from time to time, even if you are healthy. The purpose of these visits is to: Screen for medical issues Assess your risk for future medical problems Encourage a healthy lifestyle Update vaccinations and other preventive care services Help you get to know your provider in case of an illness Information Even if you feel fine, you should still see your provider for regular checkups. These visits can help you avoid problems in the future. For example, the only way to find out if you have high blood pressure is to have it checked regularly. High blood sugar and high cholesterol levels also may not have any symptoms in the early stages. A simple blood test can check for these conditions. There are specific times when you should see your provider or receive specific health screenings. The [place] Preventive Services Task Force publishes a list of recommended screenings. Below are screening guidelines for women ages 18 to 39. BLOOD PRESSURE SCREENING Your blood pressure should be checked at least once every 3 to 5 years if: Your blood pressure is in the normal range (top number less than 120 mm Hg and bottom number less than 80 mm Hg) You don't have risk factors for high blood pressure Ask your provider if you need your blood pressure checked more often if: The top number is 120 to 129 mm Hg or the bottom number is 70 to 79 mm Hg You have diabetes, heart disease, kidney problems, are overweight, or have certain other health conditions You have a first-degree relative with high blood pressure You are Black You had high blood pressure during a If the top number is 130 mm Hg or greater or the bottom number is 80 mm Hg or greater, this is considered stage 1 hypertension. Schedule an appointment with your provider to learn how you can reduce your blood pressure. Watch for blood pressure screenings in your area. Ask your provider if you can stop in to have your blood pressure checked. BREAST CANCER SCREENING Experts do not agree about the benefits of breast self-exams in finding breast cancer or saving lives. Talk to your provider about what is best for you. A screening mammogram is not recommended for most women under age 40. Your provider may discuss and recommend mammograms, MRI scans, or ultrasounds if you have an increased risk for breast cancer, such as: A mother or sister who had breast cancer at a young age (most often starting screening earlier than the age the close relative was diagnosed) You carry a high-risk genetic marker CERVICAL CANCER SCREENING Cervical cancer screening should start at age 21 years unless your provider advises otherwise. After the first test: Women ages 21 through 29 should have a Pap test every 3 years. Exoprts do not agree on whether HPV testing is recommended for this age group. Women ages 30 through 65 should be screened with either a Pap test every 3 years or the HPV test every 5 years or both tests every 5 years (called cotesting ). Women who have been treated for precancer (cervical dysplasia) should continue to have Pap tests for 20 years after treatment or until age 65, whichever is longer. If you have had your uterus and cervix removed (total hysterectomy), and you have not been diagnosed with cervical cancer or precancer (high grade cervical neoplasia), you do not need cervical cancer screening. CHOLESTEROL SCREENING Cholesterol screening should begin at: Age 45 for women with no known risk factors for coronary heart disease Age 20 for women with known risk factors for coronary heart disease Repeat cholesterol screening should take place: Every 5 years for women with normal cholesterol levels More often if changes occur in lifestyle (including weight gain and diet) More often if you have diabetes, heart disease, kidney problems, or certain other conditions DIABETES SCREENING You should be screened for diabetes starting at age 35 and then repeated every 3 years if you have no risk factors for diabetes. Screening may need to start earlier and be repeated more often if you have other risk factors for diabetes, such as: You have a first degree relative with diabetes. You are overweight or have obesity. You have high blood pressure, prediabetes, or a history of heart disease. Screening for diabetes should be done if you are planning to become and you are overweight and have other risk factors such as high blood pressure. DENTAL EXAM Go to the dentist once or twice every year for an exam and cleaning. Your dentist will evaluate if you need more frequent visits. EYE EXAM Have an eye exam every 5 to 10 years before age 40. If you have vision problems, have an eye exam every 2 years or more often if recommended by your provider. You should have an eye exam that includes an examination of your retina (back of your eye) at least every year if you have diabetes. IMMUNIZATIONS Commonly needed vaccines include: Flu shot: get one every year. COVID-19 vaccine: ask your provider what is best for you. Tetanus-diphtheria and acellular pertussis (Tdap) vaccine: have one at or after age 19 as one of your tetanus-diphtheria vaccines if you did not receive it as an adolescent. Tetanus-diphtheria: have a booster (or Tdap) every 10 years. Varicella vaccine: receive 2 doses if you never had chickenpox or the varicella vaccine. Hepatitis B vaccine: receive 2, 3, or 4 doses, depending on your exact circumstances. Measles, mumps, and rubella (MMR) vaccine: receive 1 to 2 doses if you are not already immune to MMR. Your provider can tell you if you are immune. Ask your provider about the human papillomavirus (HPV) vaccine if: You have not received the HPV vaccine in the past You have not completed the full vaccine series (you should catch up on this shot) Ask your provider if you should receive other immunizations if you have certain health problems that increase your risk for some diseases such as pneumonia. INFECTIOUS DISEASE SCREENING Women who are sexually active should be screened for chlamydia and gonorrhea up until age 25. Women 25 years and older should be screened for chlamydia and gonorrhea if at high risk. Screening for hepatitis C: All adults ages 18 to 79 should get a one-time test for hepatitis C. people should be screened at every . Screening for human immunodeficiency virus (HIV): All people ages 15 to 65 should get a one-time test for HIV. Depending on your lifestyle and medical history, you may also need to be screened for infections such as syphilis and HIV, as well as other infections. PHYSICAL EXAM All adults should visit their provider from time to time, even if they are healthy. The purpose of these visits is to: Screen for disease Assess your risk of future medical problems Encourage a healthy lifestyle Update your vaccinations and other preventive care services Maintain a relationship with a provider in case of an illness Your height, weight, and BMI should be checked at every exam. During your exam, your provider may ask you about: Depression and anxiety Diet and exercise Alcohol and tobacco use Safety issues, such as using seat belts, smoke detectors, and intimate partner violence Your medicines and risk for interactions SKIN SELF-EXAM Your provider may check your skin for signs of skin cancer, especially if you're at high risk, such as if you: Have had skin cancer before Have close relatives with skin cancer Have a weakened immune system OTHER SCREENING Talk with your provider about colon cancer screening if you have a strong family history of colon cancer or polyps, or if you have had inflammatory bowel disease or polyps yourself. Routine bone density screening of women under 40 is not recommended. 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
== END 2023-12-19 12:27 | disposition home or self-care (01) ==
PROVIDERS: PCP Nurse Practitioner Family; Visit Provider Nurse Practitioner Family
DX: Z00.00 Encounter for general adult medical examination without abnormal findings (principal); D05.02 Lobular carcinoma in situ of left breast; N95.8 Other specified menopausal and perimenopausal disorders; D64.9 Anemia, unspecified
CPT/HCPCS: 99396

== ENCOUNTER 2023-12-22 09:17 | Outpatient (REF) | payer OTHER, SELFPAY ==
[2023-12-22 11:41] LABS: Hematocrit 33.5 % (37.0-47.0); Hemoglobin 10.9 g/dl (12.0-16.0); Mean Corpuscular HGB Conc 32.5 g/dl (31.0-35.0); Mean Corpuscular Hemoglobin 29.1 pg (27.0-33.0); Mean Corpuscular Volume 89.3 fL (80.0-98.0); Mean Platelet Volume 9.8 fL (9.4-12.3); Platelet Count 216 X10*3/uL (160-400); Red Blood Count 3.75 X10*6/uL (4.20-5.50); Red Cell Distribution Width 11.9 % (11.0-16.0)
[2023-12-22 11:49] LABS: Estimated Average Glucose 111 mg/dL; Hemoglobin A1c % 5.5 % (<6.0)
[2023-12-22 12:03] LABS: Alanine Aminotransferase 18 U/L (0-31); Albumin Level 4.1 g/dL (3.5-5.0); Alkaline Phosphatase 78 U/L (39-117); Anion Gap 10 (12-20); Aspartate Amino Transferase 20 U/L (5-31); Bilirubin Total 0.5 mg/dL (0.0-1.0); Blood Urea Nitrogen 16 mg/dL (9-16); Calcium 9.2 mg/dL (8.4-10.2); Carbon Dioxide 28 mmol/L (22-29); Chloride 106 mmol/L (96-108); Estimated Glomerular Filt Rate > 60; Glucose Random 97 mg/dL (60-115); Iron 84 mcg/dL (30-160); Percent Iron Saturation 28 % (15-50); Potassium 3.8 mmol/L (3.3-5.1); Sodium 140 mmol/L (135-145); Total Iron Binding Capacity 297 mcg/dL (228-428); Total Protein 7.2 g/dL (6.5-8.0); Unsaturated Iron Binding 213 ug/dL
[2023-12-22 12:19] LABS: Creatinine Urine 68.71 mg/dL; Microalbumin Urine < 5.0 mg/L
[2023-12-22 12:22] LABS: TSH reflex Free T4 1.34 uIU/mL (0.32-4.0)
[2023-12-22 12:26] LABS: Folate 10.6 ng/mL (> or = 4.0); Vitamin B12 358 pg/mL (200-900)
[2023-12-23 09:33] LABS: LDL Cholesterol Direct 132 mg/dL (<100)
[2023-12-27 11:38] LABS: VITAMIN D (1,25 OH) D3 28 pg/mL; Vit D (1,25-Dihydroxy) Total 28 pg/mL (18-72); Vitamin D (1,25 OH) D2 <8 pg/mL
== END 2023-12-22 09:18 | disposition home or self-care (01) ==
LOC: HO.WFDLDS 09:17
PROVIDERS: Visit Provider Nurse Practitioner Family
DX: N95.8 Other specified menopausal and perimenopausal disorders (principal); D64.9 Anemia, unspecified; D05.02 Lobular carcinoma in situ of left breast
CPT/HCPCS: 36415; 80053; 82043; 82570; 82607; 82652; 82746; 83036; 83540; 83721; 84443; 85027

== ENCOUNTER 2024-02-21 12:35 | Outpatient (REF) | payer OTHER, SELFPAY ==
[2024-02-21 14:48] LABS: Iron 60 mcg/dL (30-160); Percent Iron Saturation 18 % (15-50); Total Iron Binding Capacity 326 mcg/dL (228-428); Unsaturated Iron Binding 266 ug/dL
== END 2024-02-21 12:36 | disposition home or self-care (01) ==
LOC: HO.WFDLDS 12:35
PROVIDERS: Visit Provider Nurse Practitioner Family
DX: D64.9 Anemia, unspecified (principal)
CPT/HCPCS: 36415; 83540

== ENCOUNTER 2024-03-01 16:20 | Outpatient (REF) | payer OTHER, SELFPAY ==
[2024-03-01 18:08] LABS: Baso%MD 0.2 %; Eos%MD 1.7 %; Hemoglobin 11.7 g/dl (12.0-16.0); IG%MD 0.3 %; Lymph%MD 33.4 %; Mean Corpuscular HGB Conc 32.5 g/dl (31.0-35.0); Mean Corpuscular Hemoglobin 29.4 pg (27.0-33.0); Mean Corpuscular Volume 90.5 fL (80.0-98.0); Mean Platelet Volume 9.8 fL (9.4-12.3); Neut%MD 57.4 %; Platelet Count 242 X10*3/uL (160-400); Red Blood Count 3.98 X10*6/uL (4.20-5.50); Red Cell Distribution Width 13.2 % (11.0-16.0); White Blood Count 5.9 X10*3/uL (4.8-10.8)
[2024-03-01 18:27] LABS: Atypical Lymph Absolute Manual 0.1 x10*3/uL; Atypical Lymphs Percent Manual 1 % (0-6); Band Neutrophils Percent 0 % (3-5); Eosinophils Absolute Manual 0.1 X10*3/uL (0.0-0.4); Eosinophils Percent Manual 1 % (0-4); Lymphocytes Absolute Manual 2.1 X10*3/uL (1.2-4.9); Lymphocytes Percent Manual 35 % (20-40); Monocytes Absolute Manual 0.3 X10*3/uL (0.1-1.2); Monocytes Percent Manual 5 % (2-11); Neutrophils Absolute Manual 3.4 X10*3/uL (2.0-8.3); Neutrophils Percent Manual 58 % (45-73)
[2024-03-01 18:28] LABS: Platelet Estimate NORMAL (NORMAL); Platelet Morphology Comment NORMAL; RBC Morphology NORMAL
== END 2024-03-01 16:21 | disposition home or self-care (01) ==
LOC: HO.LAB 16:20
PROVIDERS: PCP Nurse Practitioner Family; Visit Provider Nurse Practitioner Family
DX: D64.9 Anemia, unspecified (principal)
CPT/HCPCS: 36415; 85007; 85027

== ENCOUNTER 2024-07-03 16:23 | Outpatient (REF) | payer OTHER, SELFPAY ==
[2024-07-03 17:08] LABS: Hematocrit 34.8 % (37.0-47.0); Hemoglobin 11.6 g/dl (12.0-16.0); Mean Corpuscular HGB Conc 33.3 g/dl (31.0-35.0); Mean Corpuscular Hemoglobin 30.4 pg (27.0-33.0); Mean Corpuscular Volume 91.3 fL (80.0-98.0); Mean Platelet Volume 9.2 fL (9.4-12.3); Platelet Count 231 X10*3/uL (160-400); Red Blood Count 3.81 X10*6/uL (4.20-5.50); Red Cell Distribution Width 12.5 % (11.0-16.0); White Blood Count 5.4 X10*3/uL (4.8-10.8)
[2024-07-03 17:44] LABS: Iron 84 mcg/dL (30-160); Percent Iron Saturation 26 % (15-50); Total Iron Binding Capacity 325 mcg/dL (228-428); Unsaturated Iron Binding 241 ug/dL
[2024-07-03 17:58] LABS: Ferritin 20 ng/mL (10-250)
[2024-07-03 18:12] LABS: Folate 14.1 ng/mL (> or = 4.0); Vitamin B12 508 pg/mL (200-900)
== END 2024-07-03 16:24 | disposition home or self-care (01) ==
LOC: HO.LAB 16:23
PROVIDERS: PCP Nurse Practitioner Family; Visit Provider Nurse Practitioner Family
DX: D64.9 Anemia, unspecified (principal)
CPT/HCPCS: 36415; 82607; 82728; 82746; 83540; 85027

== ENCOUNTER → 2024-08-27 15:02 | Outpatient (BNV) | payer OTHER, SELFPAY | PROVIDERS: PCP Nurse Practitioner Family; Referring Provider Nurse Practitioner Family; Visit Provider Internal Medicine Medical Oncology | DX: D64.9 Anemia, unspecified (principal) | CPT/HCPCS: 99204 ==

== ENCOUNTER 2024-08-29 13:55 | Outpatient (AMB) | payer OTHER, SELFPAY ==
--- NOTE | 2024-08-29 13:56 | A.OFFVIS_ITS ---
Intake Visit Reasons: EGD celiac Intake Note: Patient followup for EGD Celiac Patient cc: abdominal pain with bloating, acid reflex with burning sensation, denies any other GI issues for today. Clerical Support Specialist Required: No Allergies Sulfa (Sulfonamide Antibiotics) [SULFA (SULFONAMIDE ANTIBIOTICS)] Allergy (Intermediate, Verified 08/29/24 13:55) HIVES, rash Latex, Natural Rubber Allergy (Mild, Verified 08/29/24 13:55) rash HPI Comments Details: 42 y.o F with hx of L breast ca stage II s/p double mastectomy, chemo XRT, currently on anastrazole who is here for follow up. 12/20/22: Main CC today is occasional rectal pressure and BRBPR. States that during the chemotherapy her constipation got worse to the point of anal fissure/tearing. Now since Sep BM are a bit more regular 3 times a week but still lumpy and requires considerable straining. Sometimes sees blood on wiping. She is primarily here due to fam hx of polyps in her maternal grandfather, see below. Fam hx: Mat grandfather had advanced polyps so mother gets checked frequently but mother has never had any advanced polyps. Pat grandmother: bladder ca Mat aunt: ovarian ca 02/28/23: Reports persistent intermittent BRBPR and minimal improvement in constipation. Can sometimes also palpate a small lump protruding through open anal opening after BM. Given fam hx she is quite concerned. 04/20/23: Mucosa: Normal to cecum and terminal ileum. Protruding lesions: * Medium internal hemorrhoids without stigmata of recent bleeding. 08/29/24: Following up as telehealth for finding of positive tissue transglutaminase Ab. Pt reports that has longstanding normocytic anemia that is non-iron deficiency as per prev discussion with Mirta Beaver as well as iron panel here. More recently discussed this with her PCP who referred her to hematology. Labs positive for tissue transglutaminase Ab. Pt herself does not have any other GI sx including abd pain, N,V. Tolerates gluten products just fine. In addition, pt also reflux sx that have been getting worse for the past few weeks. Has not yet taken anything for this. 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 Invasive lobular carcinoma of breast in female Abnormal mammogram of left breast Normal Pap smear Annual physical exam Surgical History Hx of colonoscopy Hx of bilateral mastectomy History of appendectomy Family History Maternal Grandfather Colon polyps Skin cancer Social History Household Members: Spouse and Children Household Members Other:: 2 children Housing: House Are you a primary medicare coordinator to a significant other at home: No Do you presently have visiting nurse or other home services: No 75 years or older and lives alone: No Alcohol intake: current Alcohol intake frequency: holidays/special occasions only Patient Tobacco Use Status: Never used Tobacco e-Cigarette/Vaping Use: Never Used Second Hand Smoke Exposure: No service: No Current occupational status: employed Current occupation: [employer] Cognitive needs: No Hearing needs: No Vision needs: No Female Reproductive History Menstrual Age of Menarche: 13 Review of Systems Const All systems reviewed & are unremarkable except as noted in HPI and below Physical Exam Vital Signs: video visit NAD speaking in full sentences no overt resp distress Telehealth Telehealth Telehealth Platform: [employer] Location of provider rendering services: practice address Location of patient: address on file Patient Identification confirmed using: Name, : Yes Telehealth method: video Patient verbally consented to treatment: Yes Patient verbally consented to billing insurance company: Yes Patient informed of any privacy concerns related to visit: Yes Minutes spent on Phone/Video with Pt.: 11 Assessment & Plan Assessment & Plan (1) Normochromic normocytic anemia: Code(s): D64.9 - Anemia, unspecified Category: Medical (2) Elevated anti-tissue transglutaminase (tTG) IgA level: Code(s): R76.8 - Other specified abnormal immunological findings in serum Category: Medical (3) GERD (gastroesophageal reflux disease): Code(s): K21.9 - Gastro-esophageal reflux disease without esophagitis Category: Medical Plan 1. + Anti-Ttg Reviewed that will need small bowel biopsies to confirm if has celiac. This will need to be done ON gluten to avoid false negative. Msg already sent to book EGD. 2. GERD Having sx 2-3 times a week assoc with heartburn. No dysphagia, odynophagia or regurg. Getting set up for EGD anyway. Famotidine 20 mg once daily in the interim. Pt educated to space out from iron supplementation. Follow up after EGD Medications: New famotidine 20 mg PO DAILY 90 tabs 1RF Coding Level of Care Code Tele Est Pt Level 4 (87900) Diagnoses Normochromic normocytic anemia D64.9 Elevated anti-tissue transglutaminase (tTG) IgA level R76.8 GERD (gastroesophageal reflux disease) K21.9
== END 2024-08-29 15:43 | disposition home or self-care (01) ==
LOC: HO.HGI 13:55
PROVIDERS: PCP Nurse Practitioner Family; Visit Provider Internal Medicine
DX: D64.9 Anemia, unspecified (principal); R76.8 Other specified abnormal immunological findings in serum; K21.9 Gastro-esophageal reflux disease without esophagitis
CPT/HCPCS: 99214

== ENCOUNTER 2024-12-05 08:33 | Outpatient (REF) | payer OTHER, SELFPAY ==
--- NOTE | ~2024-12-05 | MM_ITS ---
EXAMINATION: DXA BONE DENSITY AXIAL HISTORY: Estrogen deficiency TECHNIQUE: CaseReader Dual energy absorptiometry (DEXA) of the lumbar spine, total left hip, and femoral neck was performed. COMPARISON: Comparison is made with the prior examination dated 10/26/2022. FINDINGS: The bone mineral density of the lumbar spine is 1.077 with a T-score of -0.9, and a Z-score of -1.1. This is indicative of normal bone mineral density. This represents a BMD change of -4.8% compared to the prior exam. This is statistically significant. The bone mineral density of the left total hip is 0.901 with a T-score of -0.8, and a Z-score of -0.8. This is indicative of normal bone mineral density. This represents a BMD change of -7.1% compared to the prior exam. This is statistically significant. The bone mineral density of the left femoral neck is 0.809 with a T-score of -1.6, and a Z-score of -1.3. This is indicative of osteopenia. This represents a BMD change of -9.6% compared to the prior exam. MM/XR DEXA axial skeleton IMPRESSION: Based on bone mineral density, and according to World Health Organization (WHO) criteria, the diagnosis is consistent with osteopenia. All bone density values are in grams per centimeter squared (g/cm2). Statistically, 68% of repeat scans fall within 1 SD (+/- 0.010 g/cm2 for AP spine L1-L4) and 1 SD (+/- 0.012 g/cm2 for femur total) FRAX is a trademark of the [employer] Met[employer] Disease, a World Health Organization (WHO) Collaborating Center. Electronically signed by: Arun Marquez MD 12/05/2024 09:22 AM EDT
--- OUTSIDE RECORDS SUMMARY | 2024-12-05 08:58 | XMS_ITS | Clinical Summary ---
Author Organization [facility] Address [address] [place] [address] Care Team Providers Care Cost Clerk Name Role Phone Unavailable Primary Care Provider Unavailabl e Source Comments PLEASE NOTE, if this patient is a minor, it may be UNLAWFUL to discuss sensitive information that is contained in these records (such as FAMILY PLANNING, MENTAL HEALTH or SUBSTANCE ABUSE) with the minor patient's parent or other person without the patient's specific authorization.[facility] Immunizations Immunization Administration Dates Next Due Moderna COVID-19 Vaccine, re d cap blue label, 12+ Primary Series 01/07/2021,12/10/2020 Social History Tobacco Use Types Packs/Day Years Used Date Smoking Tobacco: Never Assessed Social Connections Answer Date Recorded Social Connections and Isolation 0 12/10/2020 Financial Resource Strain Answer Date R ecorded Financial Resource Strain 0 2020 Stress Answer Date Recorded Stress 0 12/10/2020 Physical Activity Answer Date Recorded Physical Activity 0 12/10/2020 Food Insecurity Answer Date Recorded Food 0 12/10/2020 Transportation Needs Answer Date Record ed Transportation 0 12/10/2020 Housing Stability Answer Date Recorded Housing 0 12/10/2020 Safety and Environment Answer Date Sourav rded Safety 0 12/10/2020 Utilities Answer Date Recorded Utilities 0 12/10/2020 Employment Answer Date Recorded Employment 0 12/10/2020 Comments Unknown Sex and Gender Information Value Date Recorded Sex Assigned at Not on file Legal Sex Female 12:02 PM PDT Gender Identity Not on file Sexual Orientation Not on file Plan of Treatment Health Maintenance Due Date Last Done Comments Diabetes Screening 1981 HPV Screening 1981 Hepatitis C Screening 1981 Lipid Screening 1981 Pap + HPV 1981 Tobacco Screening 1981 HIV Screening 1996 Relationship Safety Screening/Counseling 1996 Hypertension Screening (#1) 1999 Imm-Hepatitis B (1 of 3 - 19 + 3-dose series) 2000 Cervical Cancer Screening 2002 Pap Smear 2002 Breast Cancer Screening (Mammogram) 2021 [id number] (3 - season) 2024 021, 12/10/2020 Imm-Influenza (#1) 2024 07/23/2016 Alcohol and Drug Screen 09/12/2024 Depression Annual Screen 09/12/2024 Imm-DTaP/Tdap/Td (3 - Td or Tdap) 07/23/2026 016, 05/22/2013 Cervical Ablation/Cold-Knife Conization Discontinued Cervical Cryotherapy Discontinued Colposcopy Discontinued Endometrial Biopsy Discontinued Excision/Leep Discontinued HPV Genotyping Discontinued Vaginal Pap Discontinued Vulvoscopy Discontinued Insurance [facility] Member Subscriber Plan / Payer (Ef fective 2020-Present) Name:Shruti Mckeon Relation to Subscriber:Self Name:Shruti Mckeon Payer ID:[id number] Group ID:Not on file Type:Indemnity Address: [facility] [address] [place] [address]
--- OUTSIDE RECORDS SUMMARY | 2024-12-05 08:58 | XMS_ITS ---
Author Name [facility] Organization Unknown Encounters Encounter Type Encounter Reason Primary Diagnosis Location Date Ambulatory Respiratory Viral conjunctiv itis, unspecified [facility] [place] 11/25/2024 Care Team Organization Name Specialty Phone Email Start Date End Da te [facility] [place] NO PCP Primary Care 11/25
== END 2024-12-05 08:34 | disposition home or self-care (01) ==
LOC: HO.MAMMO 08:33
PROVIDERS: PCP Nurse Practitioner Family; Visit Provider Registered Nurse Home Health
DX: Z13.820 Encounter for screening for osteoporosis (principal); E28.39 Other primary ovarian failure; Z17.0 Estrogen receptor positive status [ER+]; Z85.3 Personal history of malignant neoplasm of breast
CPT/HCPCS: 77080

== ENCOUNTER → 2024-12-05 08:45 | Outpatient (BNV) | payer OTHER, SELFPAY | PROVIDERS: PCP Nurse Practitioner Family; Visit Provider Radiology Diagnostic Radiology | DX: E28.39 Other primary ovarian failure (principal) | CPT/HCPCS: 77080 ==

== ENCOUNTER 2024-12-20 10:29 | Day surgery (SDC) | payer OTHER, SELFPAY ==
[2024-12-18 10:21] VITALS: BMI 23.5
--- NOTE | 2024-12-19 10:01 | HO.ANESPROP2 ---
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 (Acute) Invasive lobular carcinoma of breast in female (Acute) Abnormal mammogram of left breast (Acute) Normal Pap smear (Acute) Annual physical exam (Acute) Past Medical History Medical History 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 Invasive lobular carcinoma of breast in female Abnormal mammogram of left breast Normal Pap smear Annual physical exam Family History Family History Maternal Grandfather Colon polyps Skin cancer Family history of problems with anesthesia: No Surgical History Surgical History Hx of colonoscopy Hx of bilateral mastectomy History of appendectomy History of Problems with Anesthesia: No Social History Social History Household Members: Spouse and Children Household Members Other:: 2 children Housing: House Are you a primary home health care case manager to a significant other at home: No Do you presently have visiting nurse or other home services: No Alcohol intake: current Alcohol intake frequency: holidays/special occasions only Patient Tobacco Use Status: Never used Tobacco e-Cigarette/Vaping Use: Never Used Second Hand Smoke Exposure: No service: No Current occupational status: employed Current occupation: [employer] Cognitive needs: No Hearing needs: No Vision needs: No Meds Allergies Allergy/AdvReac Type Severity Reaction Status Date / Time Sulfa (Sulfonamide Allergy Intermediate HIVES, rash Verified 11/05/24 15:38 Antibiotics) [SULFA (SULFONAMIDE ANTIBIOTICS)] Latex, Natural Rubber Allergy Mild rash Verified 11/05/24 15:38 Home Medications ?Medication ?Instructions ?Recorded ?Confirmed ?Last Taken ?Type anastrozole 1 mg tablet 1 mg PO DAILY 10/13/22 08/27/24 04/19/23 History leuprolide 3.75 mg intramuscular 3.75 mg IM Q4W 12/20/22 08/27/24 03/29/23 History syringe kit (Lupron Depot) cholecalciferol (vitamin D3) 10 10 mcg PO DAILY 02/28/23 08/27/24 04/18/23 History mcg (400 unit) capsule vitamin B complex (B 1 tab PO DAILY 02/28/23 08/27/24 04/18/23 History Complex-Vitamin B12 tablet) Saccharomyces boulardii [Daily 1 dose PO DAILY 08/23/23 08/27/24 Unknown History Probiotic (S. boulardii)] glucosamine 750 eb-[id number] 2 tab PO DAILY 12/19/23 08/27/24 Unknown History no1 644 mg-C 30 mg-maria 1 mg tablet (Osteo Bi-Flex Triple Strength) Exam Height,Weight and Vital Signs: Height 5 ft 10 in Weight 74.389 kg Assessment and Plan Assessment Anesthesia Assessment: Chart Reviewed Final Anesthetic Review Family History of Problems with Anesthesia: No History of Problems with Anesthesia: No
[2024-12-20 11:37] LABS: UPreg QC Valid YES; Urine Pregnancy NEGATIVE (NEGATIVE)
[2024-12-20 11:43] VITALS: BP 124/81; PULSE 67; RESP 14; TEMP 36.7; O2SAT 99; BMI 23.2
[2024-12-20] MEDS: Lactated Ringers 1,000 ML 100 ML IVCONT (11:57)
--- NOTE | 2024-12-20 12:19 | MHC.SHP ---
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 Invasive lobular carcinoma of breast in female Abnormal mammogram of left breast Normal Pap smear Annual physical exam Surgical History Hx of colonoscopy Hx of bilateral mastectomy History of appendectomy Present Medications: see Short Stay Collaborative assessment Allergies: Allergies Allergy/AdvReac Type Severity Reaction Status Date / Time Sulfa (Sulfonamide Allergy Intermediate HIVES, rash Verified 12/20/24 11:57 Antibiotics) [SULFA (SULFONAMIDE ANTIBIOTICS)] Latex, Natural Rubber Allergy Mild rash Verified 12/20/24 11:57 Review of Systems Review of Systems Comment: Ten point ROS negative Exam Exam Comment: Gen appear: No acute distress HEENT: no icterus Chest: No overt resp distress Abd: soft, nontender, nondistended Psych: Stable affect, answering questions appropriately Neuro: A/Ox3 noted to move all extremities spontaneously Ext: no peripheral edema Plan Diagnosis/Plan: Unchanged I have reviewed the history and physical and performed a pertinent physical examination on my patient. No changes have occurred unless specified. Time Spent With Patient Time: Total time managing care of this patient today ____ minutes.
--- NOTE | 2024-12-20 13:13 | P.OP_ITS ---
Operative Note Operative Note Date of Service: 12/20/24 Narrative: Procedure: Esophagogastroduodenoscopy Endoscopist: Piper Heck MD Indication: R/o celiac disease Anesthesia Provider: Nomi Arreola CRNA Anesthesia Type: MAC ?? EGD Procedure:?? The procedure, indications, preparation and potential complications were reviewed with the patient, who indicated understanding and gave written informed consent to proceed. A physical exam was performed. The endoscope was introduced through the mouth, and advanced to the second part of duodenum. The mucosa was carefully examined on slow withdrawal of the endoscope. The patient tolerated the procedure well. There were no immediate complications.? ? EGD Findings:? * Esophagus:? Normal mucosa noted in the entire esophagus. The Z line was at 40 cm and irregular up to 39 cm. GE junction biopsies were taken to r/o Ernst's esophagus. * Stomach:?Patchy erythema and congestion in the body of the stomach. Retroflexion performed in the cardia. Random gastric biopsies were taken to rule out H Pylori infection. * Duodenum:? Fissuring noted in the duodenum scarlett in the duodenal bulb. Cold forceps biopsies were taken from duodenal bulb and second portion of the duodenum to rule out celiac sprue. ? EGD Impressions:? * Irregular Z line (biopsy) * Gastritis (biopsy) * Abnormal duodenal mucosa (biopsy) ?? Recommendations:?? * Follow biopsy results. Our office will call or send a letter with results within 7-10 days. * Continue Famotidine 20 mg daily * Recommend gluten free diet * If H pylori +, patient will be prescribed eradication therapy followed by test of cure. * Avoid NSAIDs. Above has been reviewed with the patient.
[2024-12-20 13:19] VITALS: BP 109/71; PULSE 80; RESP 16; TEMP 36.8; O2SAT 98
[2024-12-20 13:36] VITALS: BP 115/68; PULSE 68; RESP 17; TEMP 36.3; O2SAT 98
== END 2024-12-20 13:05 | disposition home or self-care (01) ==
PROVIDERS: Nurse Practitioner; PCP Nurse Practitioner Family; Visit Provider Internal Medicine
PROC: 0DJ08ZZ Inspection of Upper Intestinal Tract, Via Natural or Artificial Opening Endoscopic (ICD-10-PCS; CPT 43235; principal; 2024-12-20 13:10)
DX: K90.0 Celiac disease (principal); K29.50 Unspecified chronic gastritis without bleeding; B96.81 Helicobacter pylori [H. pylori] as the cause of diseases classified elsewhere; K22.89 Other specified disease of esophagus; K31.89 Other diseases of stomach and duodenum; D64.9 Anemia, unspecified; R76.8 Other specified abnormal immunological findings in serum; K21.9 Gastro-esophageal reflux disease without esophagitis; C50.912 Malignant neoplasm of unspecified site of left female breast; C50.911 Malignant neoplasm of unspecified site of right female breast; Z79.811 Long term (current) use of aromatase inhibitors; Z90.13 Acquired absence of bilateral breasts and nipples; Z79.899 Other long term (current) drug therapy; Z88.2 Allergy status to sulfonamides; Z91.010 Allergy to peanuts
CPT/HCPCS: 43239; 81025; 88305; 88313; 88342; J2003; J2704

== ENCOUNTER → 2024-12-20 10:29 | Outpatient (BNV) | payer OTHER, SELFPAY | PROVIDERS: PCP Nurse Practitioner Family; Visit Provider Internal Medicine | DX: K29.70 Gastritis, unspecified, without bleeding (principal); K22.89 Other specified disease of esophagus | CPT/HCPCS: 43239 ==

== ENCOUNTER 2024-12-21 08:00 | Outpatient (AMB) | payer OTHER, SELFPAY ==
--- OUTSIDE RECORDS SUMMARY | 2024-12-21 08:04 | XMS_ITS | Clinical Summary ---
Author Organization [facility] Address [address] [place] [address] Care Team Providers Care Soil Chemist Name Role Phone Unavailable Primary Care Provider [...] Health Maintenance Due Date Last Done Comments Anxiety Screening 1981 Diabetes Screening 1981 HPV Screening 1981 Hepatitis C Screening 1981 Lipid Screening 1981 Pap + HPV 1981 Tobacco Screening 1981 HIV Screening 1996 Relationship Safety Screening/Counseling 1996 Hypertension Screening (#1) 1999 Imm-Hepatitis B (1 of 3 - 19 + 3-dose series) 2000 Cervical Cancer Screening 2002 Pap Smear 2002 Breast Cancer Screening (Mammogram) 2021 [id number] (3 - 2023- season) 05/13/202401/07/2 021, 12/10/2020 Imm-Influenza (#1) 2024 07/23/2016 Alcohol and Drug Screen 09/12/2024 Depression Annual Screen 09/12/2024 Imm-DTaP/Tdap/Td (3 - Td or Tdap) 07/23/2026 016, 05/22/2013 Cervical Ablation/Cold-Knife Conization Discontinued Cervical Cryotherapy Discontinued Colposcopy Discontinued Endometrial Biopsy Discontinued Excision/Leep Discontinued HPV Genotyping Discontinued Vaginal Pap Discontinued Vulvoscopy Discontinued Insurance [facility] Member Subscriber Plan / Payer (Ef fective 2020-Present) Name:Shruti Mckeon Relation to Subscriber:Self Name:Shruti Mckeon Payer ID:[id number] Group ID:Not on file Type:Indemnijanis Address: [facility] [address] [place] [address]
--- NOTE | 2024-12-21 08:06 | A.OFFPC_ITS ---
Vital Signs 12/21/24 08:10 Height 5 ft 10 in Weight 160 lb BMI 23.0 BP 98/68 Blood Pressure Location Rt brachial Position Sitting Respiration 12 Pulse 65 Pulse Source Pulse Oximeter Temp 97.3 F Temp Source Oral Pulse Oximetry (%) 99 Oxygen Delivery Method Room Air Intake Visit Reasons: annual exam Intake Note: Annual exam Stunt Double Required: No Allergies Sulfa (Sulfonamide Antibiotics) [SULFA (SULFONAMIDE ANTIBIOTICS)] Allergy (Intermediate, Verified 12/21/24 08:24) HIVES, rash Latex, Natural Rubber Allergy (Mild, Verified 12/21/24 08:24) rash Medication List - Last Reconciled 12/21/24 by Shruti Robbins, [employer]- anastrozole 1 mg PO DAILY cholecalciferol (vitamin D3) 10 mcg PO DAILY famotidine 20 mg PO DAILY ferrous sulfate 325 mg PO DAILY aolcvndc-zwat-hvm5-C-maria-bosw 750 mg-644 mg- 30 mg-1 mg (Osteo Bi-Flex Triple Strength) 2 tabs PO DAILY leuprolide (Lupron Depot) 3.75 mg IM Q4W Saccharomyces boulardii (Daily Probiotic (S. 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 Shows to to hemorrhoids, no other significant abnormality such as fissure, ulcer, polyp, or colitis. Repeat colonoscopy for asymptomatic colorectal cancer screening recommended in 10 years (2032) DEXA October 2022 within normal limits Pap Leah Sorenson due for annual this year. Next appt Garrison's Day. Mammo UTD Here today for CPE Dec started Iron and Pepcid Next heme appt end of January to eval Iron ?? poor oral absorption Has some intermittent RUQ that comes and goes; described as gas pain. [facility] offered to do imaging to eval. Will be getting injections at [facility] for bone health q6 mo Keyanna Has routine dental and Optho care. Most recent labs in [facility] reviewed. Routine f/u with specialists. EGD 12/20/24 [facility] [place] EGD Findings:? * Esophagus:? Normal mucosa noted in the entire esophagus. The Z line was at 40 cm and irregular up to 39 cm. GE junction biopsies were taken to r/o Ernst's esophagus. * Stomach:?Patchy erythema and congestion in the body of the stomach. Retroflexion performed in the cardia. Random gastric biopsies were taken to rule out H Pylori infection. * Duodenum:? Fissuring noted in the duodenum scarlett in the duodenal bulb. Cold forceps biopsies were taken from duodenal bulb and second portion of the duodenum to rule out celiac sprue. ? EGD Impressions:? * Irregular Z line (biopsy) * Gastritis (biopsy) * Abnormal duodenal mucosa (biopsy)?? Recommendations:?? * Follow biopsy results. Our office will call or send a letter with results within 7-10 days. * Continue Famotidine 20 mg daily * Recommend gluten free diet * If H pylori +, patient will be prescribed eradication therapy followed by test of cure. * Avoid NSAIDs. * * * * Plan: * Consider imaging only after getting bx results from above; consider re-read of previous imaging done to eval RUQ rather than get new imaging. Could consider US or HIDA scan to eval gallbladder. * Recommendations to get into counseling; if referral is needed send me a message and i can refer to NN. * Could consider adding med to help mood if needed, think about this and let me know. * Cont all meds and care with care team * RTO 1 year CPE sooner PRN * * * * * An additional 20 minutes was spent addressing the problem(s) noted at todays visit. This includes time spent before the visit reviewing the chart, time spent during the visit, and time spent after the visit on documentation reviewing laboratory results, diagnostic imaging, medications, performing a medically necessary evaluation, counseling on diagnoses, care coordination, ordering appropriate tests, ordering appropriate medications, review of tests performed by other providers, reporting test results with the patient, communication with other healthcare providers. [facility] Medical History (Updated 12/21/24 @ 08:53 by Shruti Robbins, 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 History of appendectomy Hx of bilateral mastectomy Hx of colonoscopy (~2022) Family History Maternal Grandfather Colon polyps Skin cancer Social History Household Members: Spouse and Children Household Members Other:: 2 children Housing: House Are you a primary healthcare management consultant to a significant other at home: No Do you presently have visiting nurse or other home services: No 75 years or older and lives alone: No Alcohol intake: current Alcohol intake frequency: does not drink Patient Tobacco Use Status: Never used Tobacco e-Cigarette/Vaping Use: Never Used Second Hand Smoke Exposure: No service: No Current occupational status: employed Current occupation: [employer] Cognitive needs: No Hearing needs: No Vision needs: No Female Reproductive History Menstrual Age of Menarche: 13 Questionnaire PHQ-9 Over the last 2 weeks, how often have you been bothered by any of the following problems? 1. Little interest or pleasure in doing things: not at all 2. Feeling down, depressed, or hopeless: not at all 3. Trouble falling or staying asleep, or sleeping too much: not at all 4. Feeling tired or having little energy: not at all 5. Poor appetite or overeating: not at all 6. Feeling bad about yourself - or that you are a failure or have let yourself or your family down: not at all 7. Trouble concentrating on things, such as reading the newspaper or watching television: not at all 8. Moving or speaking so slowly that other people could have noticed. Or the opposite - being so fidgety or restless that you have been moving around a lot more than usual: not at all 9. Thoughts that you would be better off or of hurting yourself in some way: not at all Total score: 0 Depression Screening Interpretation: Negative Depression Screening Done: Yes 73688 - PHQ-9 Billing: Yes Source: Developed by Drs. Arun Weller, Lien Lee, Antwon Moses and colleagues, with an educational meli from [employer]. Thrive Questionnaire Date Thrive assessed: 12/21/24 I am a: Patient What is your living situation today?: I have a steady place to live Within the past 12 months, did the food you bought not last and you didn't have the money to get more?: Never true Within the past 12 months, did you worry whether your food would run out before you got money to buy more?: Never true Do you have trouble paying for medicines?: No Do you have trouble getting transportation to medical appointments?: No Do you have trouble paying your heating and electricity bill?: No Do you have trouble taking care of your child, family member or friend?: No Do you have trouble with day-to-day activities such as bathing, preparing meals, shopping, managing finances, etc.?: No Are you currently unemployed and looking for a job?: No Are you interested in more education?: No Please select the resources that you would like help with: None Currently or been in a relationship where the following occur: No concerns reported THRIVE Score: 0 AUDIT C Alcohol Use Questionnaire (AUDIT-C) 1. How often do you have a drink containing alcohol?: 2-3 times a week 2. How many drinks containing alcohol do you have on a typical day when you are drinking?: 1 or 2 3. How often do you have six or more drinks on one occasion?: Never Total Score: 3 Score Reviewed/Action Taken: Yes AUDREY-7 AMB Questionnaire AUDREY-7 Date AUDREY - 7 assessed: 12/21/24 Feeling nervous, anxious, or on edge: 1 = Several days Not being able to stop or control worryin = Not at all Worrying too much about different things: 1 = Several days Trouble relaxin = Not at all Being so restless that it is hard to sit still: 0 = Not at all Becoming easily annoyed or irritable: 0 = Not at all Feeling afraid as if something awful might happen: 0 = Not at all Total AUDREY-7 score (0-4 normal; 5-9 mild; 10-14 moderate; 15-21 severe): 2 Source: Developed by Drs. Arun Weller, Lien Lee, Antwon Moses and colleagues, with an educational meli from [employer]. AUDREY-7 Assessment Billing AUDREY-7 Assessment Tool: AUDREY-7 Assessment 21747 Physical exam (Primary Care) Vital Signs: Last Vital Signs Temp 97.3 F 12/21/24 08:10 Pulse 65 12/21/24 08:10 Resp 12 12/21/24 08:10 BP 98/68 12/21/24 08:10 Pulse Ox 99 12/21/24 08:10 Oxygen Delivery Method Room Air 12/21/24 08:10 BMI result Body Mass Index 23.0 Tobacco/Smoking Status: Tobacco use Status Tobacco use date assessed 12/21/24 12/21/24 08:12 Patient Tobacco Use Status Never used Tobacco 12/21/24 08:08 e-Cigarette/Vaping Use Never Used 12/21/24 08:08 PHQ-9: PHQ-9 Score PHQ-9: Total score 0 12/21/24 08:18 Depression Screening Interpretation: Negative Thrive Assessment: Date of Thrive Assessment Date Thrive assessed 12/21/24 12/21/24 08:08 Currently or been in a relationship where the following occur: No concerns reported Const Other: General: Well developed, well nourished, in no acute distress. Appears stated age. Head: Normocephalic, atraumatic. Eyes: Pupils are equal, round and reactive to light and accommodation. Conjunctivae are clear. Vision grossly normal. Ears: TMs clear AU, EACS WNL Nose: Patent, without discharge. Mouth: There are no ulcers or lesions noted. No inflammation, no post nasal drip, no plaques nor exudates. Neck: Supple, no adenopathy or thyromegaly. Lungs: Clear to auscultation bilaterally. No rales, rhonchi or wheeze noted. Good air flow in all citnron. Heart: Regular rate and rhythm. No murmurs, click, rubs or gallops are noted. Abdomen: Bowel sounds present in all quadrants. Abd soft, nontender, no hepatomegaly, no murphys sign, well healed transvere surgical incision; bandaid to lower abd surgical area Musculoskeletal: Joints are nontender, without swelling, redness, or effusions. Range of motion is observed to be normal. Pulses: Peripheral pulses are equal and palpable bilaterally. Extremities: No clubbing, cyanosis nor edema is noted. Neurologic: Gait and station normal. Cranial Nerves 2-12 intact. Motor strength grossly symmetrical and intact. No sensory loss. Balance normal. Skin: No rashes, ulcers, or lesions noted. Turgor is good. Skin color is good. Hair and nails are without abnormalities. Psych: Normal eye contact, affect and mood appropriate, and normal interactions. Patient is alert and appropriate to context. 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 DEXA done October 2022 within normal limits. On vitamin-D supplement. Will start Zometa at [facility] Code(s): N95.8 - Other specified menopausal and perimenopausal disorders Category: Medical (3) FHx: colonic polyps: Code(s): Z83.71 - Family history of colonic polyps Category: Medical (4) Elevated anti-tissue transglutaminase (tTG) IgA level: Code(s): R76.8 - Other specified abnormal immunological findings in serum Category: Medical (5) GERD (gastroesophageal reflux disease): Code(s): K21.9 - Gastro-esophageal reflux disease without esophagitis Category: Medical Qualifiers: Esophagitis presence: without esophagitis Qualified Code(s): K21.9 - Gastro-esophageal reflux disease without esophagitis (6) Invasive lobular carcinoma of breast in female: Comment: s/p bilateral mastectomy 10/04, f/u oncology Code(s): C50.919 - Malignant neoplasm of unspecified site of unspecified female breast Category: Medical (7) 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 Code(s): D05.02 - Lobular carcinoma in situ of left breast Category: Medical (8) Normochromic normocytic anemia: Code(s): D64.9 - Anemia, unspecified Category: Medical (9) Anxiety about health: Code(s): R45.89 - Other symptoms and signs involving emotional state Category: Medical (10) RUQ pain: Code(s): R10.11 - Right upper quadrant pain Category: Medical Plan . Patient Instructions: Health screenings for women You should visit your health care provider from time to time, even if you are healthy. The purpose of these visits is to: Screen for medical issues Assess your risk for future medical problems Encourage a healthy lifestyle Update vaccinations and other preventive care services Help you get to know your provider in case of an illness Information Even if you feel fine, you should still see your provider for regular checkups. These visits can help you avoid problems in the future. For example, the only way to find out if you have high blood pressure is to have it checked regularly. High blood sugar and high cholesterol levels also may not have any symptoms in the early stages. A simple blood test can check for these conditions. There are specific times when you should see your provider or receive specific health screenings. The [place] Preventive Services Task Force publishes a list of recommended screenings. Below are screening guidelines for women ages 18 to 39. BLOOD PRESSURE SCREENING Your blood pressure should be checked at least once every 3 to 5 years if: Your blood pressure is in the normal range (top number less than 120 mm Hg and bottom number less than 80 mm Hg) You don't have risk factors for high blood pressure Ask your provider if you need your blood pressure checked more often if: The top number is 120 to 129 mm Hg or the bottom number is 70 to 79 mm Hg You have diabetes, heart disease, kidney problems, are overweight, or have certain other health conditions You have a first-degree relative with high blood pressure You are Black You had high blood pressure during a If the top number is 130 mm Hg or greater or the bottom number is 80 mm Hg or greater, this is considered stage 1 hypertension. Schedule an appointment with your provider to learn how you can reduce your blood pressure. Watch for blood pressure screenings in your area. Ask your provider if you can stop in to have your blood pressure checked. BREAST CANCER SCREENING Experts do not agree about the benefits of breast self-exams in finding breast cancer or saving lives. Talk to your provider about what is best for you. A screening mammogram is not recommended for most women under age 40. Your provider may discuss and recommend mammograms, MRI scans, or ultrasounds if you have an increased risk for breast cancer, such as: A mother or sister who had breast cancer at a young age (most often starting screening earlier than the age the close relative was diagnosed) You carry a high-risk genetic marker CERVICAL CANCER SCREENING Cervical cancer screening should start at age 21 years unless your provider advises otherwise. After the first test: Women ages 21 through 29 should have a Pap test every 3 years. Exoprts do not agree on whether HPV testing is recommended for this age group. Women ages 30 through 65 should be screened with either a Pap test every 3 years or the HPV test every 5 years or both tests every 5 years (called cotesting ). Women who have been treated for precancer (cervical dysplasia) should continue to have Pap tests for 20 years after treatment or until age 65, whichever is longer. If you have had your uterus and cervix removed (total hysterectomy), and you have not been diagnosed with cervical cancer or precancer (high grade cervical neoplasia), you do not need cervical cancer screening. CHOLESTEROL SCREENING Cholesterol screening should begin at: Age 45 for women with no known risk factors for coronary heart disease Age 20 for women with known risk factors for coronary heart disease Repeat cholesterol screening should take place: Every 5 years for women with normal cholesterol levels More often if changes occur in lifestyle (including weight gain and diet) More often if you have diabetes, heart disease, kidney problems, or certain other conditions DIABETES SCREENING You should be screened for diabetes starting at age 35 and then repeated every 3 years if you have no risk factors for diabetes. Screening may need to start earlier and be repeated more often if you have other risk factors for diabetes, such as: You have a first degree relative with diabetes. You are overweight or have obesity. You have high blood pressure, prediabetes, or a history of heart disease. Screening for diabetes should be done if you are planning to become and you are overweight and have other risk factors such as high blood pressure. DENTAL EXAM Go to the dentist once or twice every year for an exam and cleaning. Your dentist will evaluate if you need more frequent visits. EYE EXAM Have an eye exam every 5 to 10 years before age 40. If you have vision problems, have an eye exam every 2 years or more often if recommended by your provider. You should have an eye exam that includes an examination of your retina (back of your eye) at least every year if you have diabetes. IMMUNIZATIONS Commonly needed vaccines include: Flu shot: get one every year. COVID-19 vaccine: ask your provider what is best for you. Tetanus-diphtheria and acellular pertussis (Tdap) vaccine: have one at or after age 19 as one of your tetanus-diphtheria vaccines if you did not receive it as an adolescent. Tetanus-diphtheria: have a booster (or Tdap) every 10 years. Varicella vaccine: receive 2 doses if you never had chickenpox or the varicella vaccine. Hepatitis B vaccine: receive 2, 3, or 4 doses, depending on your exact circumstances. Measles, mumps, and rubella (MMR) vaccine: receive 1 to 2 doses if you are not already immune to MMR. Your provider can tell you if you are immune. Ask your provider about the human papillomavirus (HPV) vaccine if: You have not received the HPV vaccine in the past You have not completed the full vaccine series (you should catch up on this shot) Ask your provider if you should receive other immunizations if you have certain health problems that increase your risk for some diseases such as pneumonia. INFECTIOUS DISEASE SCREENING Women who are sexually active should be screened for chlamydia and gonorrhea up until age 25. Women 25 years and older should be screened for chlamydia and gonorrhea if at high risk. Screening for hepatitis C: All adults ages 18 to 79 should get a one-time test for hepatitis C. people should be screened at every . Screening for human immunodeficiency virus (HIV): All people ages 15 to 65 should get a one-time test for HIV. Depending on your lifestyle and medical history, you may also need to be screened for infections such as syphilis and HIV, as well as other infections. PHYSICAL EXAM All adults should visit their provider from time to time, even if they are healthy. The purpose of these visits is to: Screen for disease Assess your risk of future medical problems Encourage a healthy lifestyle Update your vaccinations and other preventive care services Maintain a relationship with a provider in case of an illness Your height, weight, and BMI should be checked at every exam. During your exam, your provider may ask you about: Depression and anxiety Diet and exercise Alcohol and tobacco use Safety issues, such as using seat belts, smoke detectors, and intimate partner violence Your medicines and risk for interactions SKIN SELF-EXAM Your provider may check your skin for signs of skin cancer, especially if you're at high risk, such as if you: Have had skin cancer before Have close relatives with skin cancer Have a weakened immune system OTHER SCREENING Talk with your provider about colon cancer screening if you have a strong family history of colon cancer or polyps, or if you have had inflammatory bowel disease or polyps yourself. Routine bone density screening of women under 40 is not recommended.
[2024-12-21 08:10] VITALS: BP 98/68; PULSE 65; RESP 12; TEMP 36.3; O2SAT 99; BMI 23.0
== END 2024-12-21 08:51 | disposition home or self-care (01) ==
LOC: HO.HMCFM 08:01
PROVIDERS: PCP Nurse Practitioner Family; Visit Provider Nurse Practitioner Family
DX: Z00.00 Encounter for general adult medical examination without abnormal findings (principal); N95.8 Other specified menopausal and perimenopausal disorders; C50.919 Malignant neoplasm of unspecified site of unspecified female breast; Z83.719 Family history of colon polyps, unspecified; R76.8 Other specified abnormal immunological findings in serum; K21.9 Gastro-esophageal reflux disease without esophagitis; D05.02 Lobular carcinoma in situ of left breast; D64.9 Anemia, unspecified; R45.89 Other symptoms and signs involving emotional state; R10.11 Right upper quadrant pain

== ENCOUNTER → 2024-12-21 08:00 | Outpatient (BNVA) | payer OTHER, SELFPAY | PROVIDERS: PCP Nurse Practitioner Family; Visit Provider Nurse Practitioner Family | DX: Z00.00 Encounter for general adult medical examination without abnormal findings (principal); N95.8 Other specified menopausal and perimenopausal disorders; R76.8 Other specified abnormal immunological findings in serum; K21.9 Gastro-esophageal reflux disease without esophagitis; D64.9 Anemia, unspecified; R45.89 Other symptoms and signs involving emotional state; R10.11 Right upper quadrant pain; Z85.3 Personal history of malignant neoplasm of breast; Z92.21 Personal history of antineoplastic chemotherapy; Z90.13 Acquired absence of bilateral breasts and nipples; Z83.719 Family history of colon polyps, unspecified | CPT/HCPCS: 96127 ==

== ENCOUNTER 2025-01-16 11:18 | Outpatient (AMB) | payer OTHER, SELFPAY ==
--- NOTE | 2025-01-16 11:18 | MHC.OFFVIS ---
Intake Visit Reasons: s/p EGD Intake Note: Shruti presents as a telehealth for a follow up for her EGD. CC: She states she is not having any concerns at this time. Public Safety Dispatcher Required: No Allergies Sulfa (Sulfonamide Antibiotics) [SULFA (SULFONAMIDE ANTIBIOTICS)] Allergy (Intermediate, Verified 01/16/25 11:18) HIVES, rash Latex, Natural Rubber Allergy (Mild, Verified 01/16/25 11:18) rash HPI Comments Details: 42 y.o F with hx of L breast ca stage II s/p double mastectomy, chemo XRT, currently on anastrazole who is here for follow up. 12/20/22: Main CC today is occasional rectal pressure and BRBPR. States that during the chemotherapy her constipation got worse to the point of anal fissure/tearing. Now since Sep BM are a bit more regular 3 times a week but still lumpy and requires considerable straining. Sometimes sees blood on wiping. She is primarily here due to fam hx of polyps in her maternal grandfather, see below. Fam hx: Mat grandfather had advanced polyps so mother gets checked frequently but mother has never had any advanced polyps. Pat grandmother: bladder ca Mat aunt: ovarian ca 02/28/23: Reports persistent intermittent BRBPR and minimal improvement in constipation. Can sometimes also palpate a small lump protruding through open anal opening after BM. Given fam hx she is quite concerned. 04/20/23: Mucosa: Normal to cecum and terminal ileum. Protruding lesions: Medium internal hemorrhoids without stigmata of recent bleeding. 08/29/24: Following up as telehealth for finding of positive tissue transglutaminase Ab. Pt reports that has longstanding normocytic anemia that is non-iron deficiency as per prev discussion with Mirta Beaver as well as iron panel here. More recently discussed this with her PCP who referred her to hematology. Labs positive for tissue transglutaminase Ab. Pt herself does not have any other GI sx including abd pain, N,V. Tolerates gluten products just fine. In addition, pt also reflux sx that have been getting worse for the past few weeks. Has not yet taken anything for this. 12/20/24: Irregular Z line (biopsy) Gastritis (biopsy) Abnormal duodenal mucosa (biopsy) Path: A. Duodenum, second portion, biopsy: Duodenal mucosa with mildly increased intraepithelial lymphocytes and preserved villous architecture. See comment. B. Duodenum, bulb, biopsy: Duodenal mucosa with mildly increased intraepithelial lymphocytes, focal partial villous blunting and Nayla gland hyperplasia. See comment. C. Stomach, random, biopsy: - Antral-type and oxyntic mucosa with moderate chronic active inflammation. - Positive for H pylori. D. GE junction, biopsy: - Cardiofundic-type mucosa with moderate chronic, focally active, inflammation; no intestinal metaplasia seen. - Squamous epithelium within normal limits. Comment: The findings in the duodenum may be secondary to the H. pylori infection. However, concurrent celiac disease cannot be entirely ruled out. 01/16/25: Patient seen as tele visit. Reviewed that histology consistent with celiac disease. Reviewed gluten free diet. Gastric biopsy also positive for H pylori. Will proceed with treatment. Has social commitments for later this month, so she will be starting treatment in the beginning of next month, which is reasonable. Otherwise, no acute GI issues. 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 Invasive lobular carcinoma of breast in female Abnormal mammogram of left breast Normal Pap smear Annual physical exam (~12/2024) Surgical History History of esophagogastroduodenoscopy (EGD) Hx of colonoscopy (~2022) Hx of bilateral mastectomy History of appendectomy Family History Maternal Grandfather Colon polyps Skin cancer Social History Household Members: Spouse and Children Household Members Other:: 2 children Housing: House Are you a primary residential caregiver to a significant other at home: No Do you presently have visiting nurse or other home services: No 75 years or older and lives alone: No Alcohol intake: current Alcohol intake frequency: does not drink Patient Tobacco Use Status: Never used Tobacco e-Cigarette/Vaping Use: Never Used Second Hand Smoke Exposure: No service: No Current occupational status: employed Current occupation: [employer] Cognitive needs: No Hearing needs: No Vision needs: No Female Reproductive History Menstrual Age of Menarche: 13 Physical Exam Vital Signs: Video visit: No acute distress No icterus noted No facial asymmetry Speaking in full sentences Telehealth Telehealth Telehealth Platform: [email or web address] Location of provider rendering services: practice address Location of patient: address on file Patient Identification confirmed using: Name, : Yes Telehealth method: video Patient verbally consented to treatment: Yes Patient verbally consented to billing insurance company: Yes Patient informed of any privacy concerns related to visit: Yes Minutes spent on Phone/Video with Pt.: 12 Assessment & Plan Assessment & Plan (1) Celiac disease: Code(s): K90.0 - Celiac disease Category: Medical (2) Normochromic normocytic anemia: Code(s): D64.9 - Anemia, unspecified Category: Medical (3) Elevated anti-tissue transglutaminase (tTG) IgA level: Code(s): R76.8 - Other specified abnormal immunological findings in serum Category: Medical (4) GERD (gastroesophageal reflux disease): Code(s): K21.9 - Gastro-esophageal reflux disease without esophagitis Category: Medical Qualifiers: Esophagitis presence: without esophagitis Qualified Code(s): K21.9 - Gastro-esophageal reflux disease without esophagitis Plan 1. 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 H Pylori + Quad therapy recommended. Plan: - 14 days of therapy (should not start any of these until has ALL 4 meds filled) : - Omeprazole 40mg BID - Tetracycline 500mg 4 times a day (avoid sunburn while taking) - Metronidazole 250mg 4 times a day (avoid all alcohol while taking, can take with food to avoid nausea) - Bismuth Subsalicylate 524mg 4 times a day (may turn stools black) - MICHAEL to be done 2-3 weeks after therapy completed Office follow up 6 months Medications: New tetracycline 500 mg PO QID 56 caps 0RF 14 days metronidazole 250 mg PO QID 56 tabs 0RF 14 days bismuth subsalicylate 2 tabs PO QID 112 tabs 0RF 14 days omeprazole 20 mg PO BID 28 caps 0RF 14 days A04.8 - Other specified bacterial intestinal infections Coding Level of Care Code Tele Est Pt Level 4 (40306) Diagnoses Celiac disease K90.0 Normochromic normocytic anemia D64.9 Elevated anti-tissue transglutaminase (tTG) IgA level R76.8 Gastroesophageal reflux disease without esophagitis K21.9 Esophagitis presence: without esophagitis
--- OUTSIDE RECORDS SUMMARY | 2025-01-16 12:46 | XMS_ITS | Clinical Summary ---
Author Organization [facility] Address [address] [place] [address] Care Team Providers Care Cut Order Hand Name Role Phone Unavailable Primary Care Provider [...] Smear 2002 Breast Cancer Screening (Mammogram) 2021 [id number] (3 - 2023- season) 05/13/202401/07/2 021, 12/10/2020 Imm-Influenza (#1) 2024 07/23/2016 Alcohol and Drug Screen 09/12/2024 Depression Annual Screen 09/12/2024 Imm-DTaP/Tdap/Td (3 - Td or Tdap) 07/23/2026 016, 05/22/2013 Cervical Ablation/Cold-Knife Conization Discontinued Cervical Cryotherapy Discontinued Colposcopy Discontinued Endometrial Biopsy Discontinued Excision/Leep Discontinued HPV Genotyping Discontinued Vaginal Pap Discontinued Vulvoscopy Discontinued Insurance [employer] Member Subscriber Plan / Payer (Ef fective 2020-Present) Name:Shruti Mckeon Relation to Subscriber:Self Name:Shruti Mckeon Payer ID:[id number] Group ID:Not on file Type:[employer]emn[employer]is Address: [facility] [address] [place] [address]
== END 2025-01-16 16:07 | disposition home or self-care (01) ==
LOC: HO.HGI 11:18
PROVIDERS: PCP Nurse Practitioner Family; Visit Provider Internal Medicine
DX: K90.0 Celiac disease (principal); D64.9 Anemia, unspecified; R76.8 Other specified abnormal immunological findings in serum; K21.9 Gastro-esophageal reflux disease without esophagitis
CPT/HCPCS: 99214

== ENCOUNTER → 2025-01-16 11:18 | Outpatient (BNVA) | payer OTHER, SELFPAY | PROVIDERS: PCP Nurse Practitioner Family; Visit Provider Internal Medicine ==

== ENCOUNTER 2025-03-20 08:55 | Outpatient (AMB) | payer OTHER, SELFPAY ==
--- NOTE | 2025-03-20 09:04 | AM.OFFVISNUR ---
Intake Visit Reasons: h pylori Allergies Sulfa (Sulfonamide Antibiotics) (SULFA (SULFONAMIDE ANTIBIOTICS)) Allergy (Intermediate, Verified 02/01/25 09:46) HIVES, rash Latex, Natural Rubber Allergy (Mild, Verified 02/01/25 09:46) rash Nursing Note Patient presents for collection of H Pylori breath test. Patient has been fasting for 1 hour (nothing to eat, drink, no chewing gum or smoking) has not taken any antacid medication for at least 2 weeks and has no allergies to artificial sweeteners.?? Assessment & Plan Assessment & Plan (1) GERD (gastroesophageal reflux disease): Code(s): K21.9 - Gastro-esophageal reflux disease without esophagitis Category: Medical Qualifiers: Esophagitis presence: without esophagitis Qualified Code(s): K21.9 - Gastro-esophageal reflux disease without esophagitis (2) RUQ pain: Code(s): R10.11 - Right upper quadrant pain Category: Medical Plan Patient presents for collection of H Pylori breath test. Patient has been fasting for 1 hour (nothing to eat, drink, no chewing gum or smoking) has not taken any antacid medication for at least 2 weeks and has no allergies to artificial sweeteners.???This test checks for an overgrowth of bacteria in your stomach. We all have bacteria but some may have more than others. It is treatable. if the test comes back negative there is nothing else to do. If the test result is positive we will treat you with 2 antibiotics and a medication to decrease the acid in your stomach (PPI) for 2 weeks. Two weeks after you have completed the treatment we will retest you to make sure the overgrowth has resolved. Orders: Orders H Pylori Breath Test Today Patient Instructions: Process for specimen collection and reason for testing was explained to the patient. Specimen collection. Patient instructed to take a deep breath and then exhale into the blue bag, filling it up as much as possible. Patient instructed to drink a mixture of water and the artificial sweetener with a straw. A 15 minute wait period was observed. Patient instructed to take a deep breath and then exhale into the pink bag, filling it up as much as possible.?? Coding Level of Care Code Established Pt Est Pt Level 1 (61665) Patient Type Established Medical Decision Making Straight Forward Diagnoses Gastroesophageal reflux disease without esophagitis K21.9 Esophagitis presence: without esophagitis RUQ pain R10.11
--- OUTSIDE RECORDS SUMMARY | 2025-03-20 09:09 | XMS_ITS | Clinical Summary ---
Author Organization [facility] Address [address] [place] [address] Care Team Providers Care Radioactivity Technician Name Role Phone Unavailable Primary Care Provider [...] Smear 2002 Breast Cancer Screening (Mammogram) 2021 [id number] (3 - 2023- season) 05/13/202401/07/2 021, 12/10/2020 Alcohol and Drug Screen 09/12/2024 Depression Annual Screen 09/12/2024 Imm-Influenza (#1) 2025 07/23/2016 Imm-DTaP/Tdap/Td (3 - Td or Tdap) 07/23/2026 016, 05/22/2013 Cervical Ablation/Cold-Knife Conization Discontinued Cervical Cryotherapy Discontinued Colposcopy Discontinued Endometrial Biopsy Discontinued Excision/Leep Discontinued HPV Genotyping Discontinued Vaginal Pap Discontinued Vulvoscopy Discontinued Insurance [facility] Member Subscriber Plan / Payer (Ef fective 2020-Present) Name:Shruti Mckeon Relation to Subscriber:Self Name:Shruti Mckeon Payer ID:[id number] Group ID:Not on file Type:[employer] Address: [facility] [address] [place] [address]
--- OUTSIDE RECORDS SUMMARY | 2025-03-20 09:09 | XMS_ITS ---
Author Name [facility] Organization Unknown Encounters Encounter Type Encounter Reason Primary Diagnosis Location Date Ambulatory Respiratory Viral conjunctiv itis, unspecified [facility] 11/25/2024 Care Team Organization Name Specialty Phone Email Start Date End Da te [facility] NO PCP Primary Care 11/25
== END 2025-03-20 09:16 | disposition home or self-care (01) ==
LOC: HO.HGI 08:56
PROVIDERS: PCP Nurse Practitioner Family; Visit Provider Internal Medicine
DX: K21.9 Gastro-esophageal reflux disease without esophagitis (principal); R10.11 Right upper quadrant pain

== ENCOUNTER 2025-03-20 08:55 | Outpatient (REF) | payer OTHER, SELFPAY | END 2025-03-20 08:56 | disposition home or self-care (01) | LOC: HO.LNP 08:55 | PROVIDERS: PCP Nurse Practitioner Family; Visit Provider Internal Medicine | DX: A04.8 Other specified bacterial intestinal infections (principal) | CPT/HCPCS: 83013; 99211 ==

== ENCOUNTER 2025-06-17 11:39 | Outpatient (AMB) | payer OTHER, SELFPAY ==
--- NOTE | 2025-06-17 11:42 | A.OFFPC_ITS ---
Vital Signs 06/17/25 11:46 Height 5 ft 10 in Weight 158 lb BMI 22.7 BP 101/66 Blood Pressure Location Rt brachial Position Sitting Respiration 12 Pulse 74 Pulse Source Pulse Oximeter Temp 97.2 F Temp Source Oral Pulse Oximetry (%) 98 Oxygen Delivery Method Room Air Intake Visit Reasons: in person visit for headaches Intake Note: Patient c/o headache Airline Attendant Required: No Allergies Sulfa (Sulfonamide Antibiotics) (SULFA (SULFONAMIDE ANTIBIOTICS)) Allergy (Intermediate, Verified 06/17/25 11:43) HIVES, rash Latex, Natural Rubber Allergy (Mild, Verified 06/17/25 11:43) rash Medication List - Last Reconciled 06/17/25 by Shruti Robbins, DOUBLE CUT SAWYER- anastrozole 1 mg PO DAILY bismuth subsalicylate 2 tabs PO QID 14 days cholecalciferol (vitamin D3) 10 mcg PO DAILY famotidine 20 mg PO DAILY ferrous sulfate 325 mg PO DAILY dlgumygn-ujbp-zad8-C-maria-bosw 750 mg-644 mg- 30 mg-1 mg (Osteo Bi-Flex Triple Strength) 2 tabs PO DAILY leuprolide (Lupron Depot) 3.75 mg IM Q4W metronidazole 250 mg PO QID 14 days omeprazole 20 mg PO BID 14 days Saccharomyces boulardii (Daily Probiotic (S. 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 Shows to to hemorrhoids, no other significant abnormality such as fissure, ulcer, polyp, or colitis. Repeat colonoscopy for asymptomatic colorectal cancer screening recommended in 10 years (2032) DEXA October 2022 within normal limits Pap Leah Sorenson due for annual this year. Next appt [place] [place]. Mammo UTD Flu declined Here today w/ c/o Headaches She does have a migraine headache hx in the past. For which she used excedrin and NSAIDS Given new GI dx of celiacs and GERD she can no longer take these medications Last developed pulsating pain in [place] [employer] w/ nausea. Since this time, she cont to have a headache, that varies in location and intensity. Sometimes at the base of her head, othertimes in the upper back R. That is where the headache is right now. Has been taking APAP w/ no relief. In February, after starting Zometa, she developed a migraine w/ vomiting x 1. She has never had vomiting before. This has not happened since. Headaches are usually bitemporal + teeth grinding, + stress Nausea it self is present most times in the setting of GERD Denies fever, chills, visual changes, weakness, thunderclap. Did have some left ear pain last night. No vertigo Denies head trauma. Physical Exam General: Well developed, well nourished, in no acute distress. Appears stated age. No pain w/ palp over trigeminal nerve. No TMJ dislocation or clicking. No TTP of the TMJ bilat. Head: Normocephalic, atraumatic. Neck: Supple, FROM. Negative kernigs. Ears: TM with mild clouding on the L, TM intact and clear. Nares: patent, turbinates WNL. No sinus tenderness. Eyes: Pupils are equal, round and reactive to light and accommodation. Conjunctivae are clear. Vision grossly normal. EOMI WNL Musculoskeletal: Joints are nontender, without swelling, redness, or effusions. Pulses: Peripheral pulses are equal and palpable bilaterally. Extremities: No clubbing, cyanosis nor edema is noted. Psych: Mood and affect appropriate. Reports increased stress levels. Neuro - see below. Discussion Notes I discussed with the patient that her pattern of headaches, likely migraines or tension-type headaches, could be stress-induced. Symptomatic management and preventive measures including magnesium and riboflavin supplementation were suggested. I proposed sumatriptan for abortive migraine management, explaining potential side effects like dizziness and warmth sensation. A plan for conservative management was advised, considering her reassuring examination results. We discussed potential imaging studies, including MRI, only if symptoms do not improve with current management. The patient was also advised on potential signs necessitating immediate medical attention, such as focal neurological deficits. Patient was given time to ask questions. All questions were answered to their satisfaction. Assessment and Plan 1. Migraine - Magnesium and riboflavin prescribed fo r prevention. - Sumatriptan for acute episodes. Titrat e to effect. - Consider imaging if symptoms persist. 2. Gastroesophageal Reflux Disease - Avoid NSAIDs, continue Tylenol. - Dietary management. - cont care as per GI 3. Celiac Disease - Monitor symptoms. 4. Stress-related symptoms - Stress management strategies. 5. Temporomandibular Joint Disorder (Bru xism) - Stress reduction discussed. Patient Instructions - Take magnesium and riboflavin suppleme nts nightly. - Use sumatriptan for new headache episo aleksander as directed. - Avoid NSAIDs; use Tylenol for pain rel ief. - Follow dietary recommendations for ref lux management. - Implement stress management techniques and relaxation exercises. - Report signs of severe headache or gianluca rological symptoms immediately. - Consider imaging if headaches do not i mprove in four weeks. - RTO in 4 weeks for fu, sooner as nilo d. Consent Patient was informed and verbally consented to the use of an ambient scribe for clinic note documentation during this visit. Total time spent caring for the patient today was 30 minutes. This includes time spent before the visit reviewing the chart, time spent during the visit, and time spent after the visit on documentation, reviewing laboratory results, diagnostic imaging, medications, performing a medically necessary evaluation, counseling on diagnoses, care coordination, ordering appropriate tests, ordering appropriate medications, review of tests performed by other providers, reporting test results with the patient, communication with other healthcare providers. 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 Invasive lobular carcinoma of breast in female Abnormal mammogram of left breast Normal Pap smear Annual physical exam (~12/2024) Surgical History History of esophagogastroduodenoscopy (EGD) Hx of colonoscopy (~2022) Hx of bilateral mastectomy History of appendectomy Family History Maternal Grandfather Colon polyps Skin cancer Social History Household Members: Spouse and Children Household Members Other:: 2 children Housing: House Are you a primary managed care manager to a significant other at home: No Do you presently have visiting nurse or other home services: No 75 years or older and lives alone: No Alcohol intake: current Alcohol intake frequency: does not drink Patient Tobacco Use Status: Never used Tobacco e-Cigarette/Vaping Use: Never Used Second Hand Smoke Exposure: No service: No Current occupational status: employed Current occupation: [employer] Cognitive needs: No Hearing needs: No Vision needs: No Female Reproductive History Menstrual Age of Menarche: 13 Questionnaire Thrive Questionnaire Date Thrive assessed: 12/14/24 I am a: Patient What is your living situation today?: I have a steady place to live Within the past 12 months, did the food you bought not last and you didn't have the money to get more?: Never true Within the past 12 months, did you worry whether your food would run out before you got money to buy more?: Never true Do you have trouble paying for medicines?: No Do you have trouble getting transportation to medical appointments?: No Do you have trouble paying your heating and electricity bill?: No Do you have trouble taking care of your child, family member or friend?: No Do you have trouble with day-to-day activities such as bathing, preparing meals, shopping, managing finances, etc.?: No Are you currently unemployed and looking for a job?: No Are you interested in more education?: No Please select the resources that you would like help with: None Currently or been in a relationship where the following occur: No concerns reported THRIVE Score: 0 AUDREY-7 AMB Questionnaire AUDREY-7 Date AUDREY - 7 assessed: 12/21/24 Source: Developed by Drs. Arun Weller, Lien Lee, Antwon Moses and colleagues, with an educational meli from [employer]. Physical exam (Primary Care) Vital Signs: Last Vital Signs Temp 97.2 F 06/17/25 11:46 Pulse 74 06/17/25 11:46 Resp 12 06/17/25 11:46 BP 101/66 06/17/25 11:46 Pulse Ox 98 06/17/25 11:46 Oxygen Delivery Method Room Air 06/17/25 11:46 BMI result Body Mass Index 22.7 Tobacco/Smoking Status: Tobacco use Status Tobacco use date assessed 06/17/25 06/17/25 11:48 Patient Tobacco Use Status Never used Tobacco 06/17/25 11:48 e-Cigarette/Vaping Use Never Used 06/17/25 11:48 Thrive Assessment: Date of Thrive Assessment Date Thrive assessed 12/14/24 06/17/25 11:48 Currently or been in a relationship where the following occur: No concerns reported Const Orientation/consciousness: patient oriented x3 Neck Neck: Yes no meningeal signs Neuro General: patient oriented x3, gait normal, moves all extremities, Normal light touch and pain sensation, no meningeal signs, no focal motor deficits, CN's II- XI intact bilaterally, normal sensation to monofilament and deep tendon reflexes 2+ bilaterally Cranial nerves: Yes Facial sensation intact/muscles of mastication intact, Yes Normal facial strength present, Yes Midline tongue present, Yes Ability to bilaterally rotate head present and Yes Ability to bilaterally elevate shoulders present Cognition (Neuro): normal cognition Motor exam (neuro): 5/5 motor strength present throughout, Pronator motor function not present, no tremor noted, no asterixis, Motor fasciculations not present, Normal motor muscle tone present throughout and Motor abnormalities not present Sensory Exam: double simultaneous stimulation for sensation normal Deep tendon reflexes (DTR's): Right triceps reflex intensity grade: 2+, Left triceps reflex intensity grade: 2+, Rt Biceps (C5, C6): 2+, Left biceps reflex intensity grade: 2+, Right brachioradialis reflex intensity grade: 2+, Left brachioradialis reflex intensity grade: 2+, Right patellar reflex intensity grade: 2+, Left patellar reflex intensity grade: 2+, Right ankle reflex intensity grade: 2+ and Left ankle reflex intensity grade: 2+ Coordination: enpsjp-aj-tyuq test normal, iqum-pe-abpu test normal, tandem gait normal and Romberg test negative Romberg Test: Negative Comatose Patient: corneal reflex present Coding Level of Care Code Est Pt Level 4 (30774) Complex EM visit Add On G2211 Diagnoses Nonintractable episodic headache, unspecified headache type R51.9 Headache type: unspecified Headache chronicity pattern: episodic headache Intractability: not intractable Gastroesophageal reflux disease without esophagitis K21.9 Esophagitis presence: without esophagitis Celiac disease K90.0 Bruxism F45.8 Anxiety about health R45.89 Influenza vaccination declined Z Assessment & Plan Assessment & Plan (1) Headache: Code(s): R51.9 - Headache, unspecified Category: Medical Qualifiers: Headache type: unspecified Headache chronicity pattern: episodic headache Intractability: not intractable Qualified Code(s): R51.9 - Headache, unspecified (2) GERD (gastroesophageal reflux disease): Code(s): K21.9 - Gastro-esophageal reflux disease without esophagitis Category: Medical Qualifiers: Esophagitis presence: without esophagitis Qualified Code(s): K21.9 - Gastro-esophageal reflux disease without esophagitis (3) Celiac disease: Code(s): K90.0 - Celiac disease Category: Medical (4) Bruxism: Code(s): F45.8 - Other somatoform disorders Category: Medical (5) Anxiety about health: Code(s): R45.89 - Other symptoms and signs involving emotional state Category: Medical (6) Influenza vaccination declined: Code(s): Z28.21 - Immunization not carried out because of patient refusal Category: Medical Plan . Medications: New sumatriptan succinate take 1 tab at onset of headache; if no relief may repeat 1 tab after at least 2 hrs; max = 4 tabs/24 hr PO 7 tabs 12RF riboflavin (vitamin B2) 400 mg PO BEDTIME 90 tabs 2RF magnesium oxide 400 mg PO BEDTIME 90 caps 2RF
[2025-06-17 11:46] VITALS: BP 101/66; PULSE 74; RESP 12; TEMP 36.2; O2SAT 98; BMI 22.7
--- OUTSIDE RECORDS SUMMARY | 2025-06-17 14:14 | XMS_ITS | Encounter Summary ---
Author Organization [facility] Address [address] [place] [address] Phone Care Team Providers Care Accounting Systems Manager Name Role Phone Anamaria Tabares MD Primary Care Provider [phone] Self-Referred, Patient Unavailable Unavailab Mitzi Lyles CASTING ROOM HELPER Unavailable [phone] Raymond Wilson MD Unavailable Adenike Ashby RN Unavailable [phone] Sekou Watson MD Unavailable James Jo MD Unavailable [phone] Gracie Chang MD Unavailable [phone] Brandy Alarcon RN Unavailable [email or web address] Juani Chatman RN Unavailable Dunia@ [email or web address] Juani Chatman RN Unavailable Dunia@ [email or web address].[email or web address] Bhumi Abdi RN Unavailable YANIRA [email or web address] Shruti George NP Primary Care Provider Encounter Details Date Type Department Care Team (Late st Contact Info) Description 01/15/2022 Procedure Pass [facility] L2 PRU [address] [place] [address] Social History Tobacco Use Types Packs/Day Years Used Date Smoking Tobacco: Never Assessed Comments No Sex and Gender Information Value Date Recorded Sex Assigned at Female 08/03/2024 12:18 PM EST Legal Sex Female 12:54 PM EDT Gender Identity Female 08/03/2024 12:18 PM EST Sexual Orientation Straight 08/03/2024 12 :18 PM EST documented as of this encounter Plan of Treatment Upcoming Encounters Date Type Department Care Team (Late st Contact Info) Description 08/20/2025 8:50 AM EST Blood Draw Laboratory Services, [facility] at [address] [address] Raymond Wilson MD [address] [place] [phone] [email or web address] 08/20/2025 9:30 AM EST Office Visit [facility], [facility], [facility] at [address] [address] Mitzi Huber, [address] [address] [email or web address]. [facility] 08/20/2025 10:30 AM EST Infusion Infusion Therapy Services [facility], [facility] at [address] [address] Raymond Wilson MD [address] [place] [phone] [email or web address] documented as of this encounter Visit Diagnoses Not on filedocumented in this encounter Additional Health Concerns Infection Onset Date Last Indicated Resolved Time CoV-Presumed Comment:Patient tested positive for COVID-19 on 01/15. Patient developed symptoms of runny nose and head congestion on 01/14. -Deguene C. 01/18/22 01/14/2022 01/15/2022 02/03/2022 1:22 AM E DT CoV-Risk 02/26/2022 02/26/2022 03/08/2022 3:47 PM EDT CoV-Presumed Comment:Patient developed symptoms of fever 100.1 degrees F., muscle aches, cough, chest and nasal congestion on 02/26. Patient tested positive for COVID-29 on 02/26. -Deguealex C. 03/08/22 02/26/2022 02/26/2022 03/18/2022 1:24 AM E DT documented as of this encounter Care Teams Accounting Systems Manager Relationship Specialty Start Date End Date Anamaria Tabares MD [facility] [place] [address] PCP - General Internal Medicine 01/06/22 12/19/23 Shruti George, NORY [address] [place] [phone] [email or web address] PCP - General Nurse Practitioner 12/20/23 Self-Referred, Patient 01/06/22 Mitzi Huber CNP [address] [place] [phone] [email or web address]. [facility] Medical Oncology 02/04/22 Raymond Wilson MD [address] [place] [phone] Dianna@[email or web address] Medical Oncology 02/04/22 Adeinke Ashby RN [address] [place] [phone] [email or web address] Primary Infusion Nurse 02/04/22 Sekou Watson MD [address] [place] [address] [place] [address] Plastic and Reconstructive Surgery 02/19/22 James Jo MD [facility] [address] [place] [phone] [email or web address] Radiation Oncology 02/19/22 Gracie Chang MD [address] [facility] [place] [place] [address] Surgical Oncology 02/19/22 Brandy Alarcon, JOSUE [address] [place] [address] [email or web address] Primary Infusion Nurse 04/06/22 Juani Chatman RN [address] [place] [address] [email or web address] Associate Infusion Nurse 04/06/22 04/06/22 Juani Chatman RN [address] [place] [address] [email or web address] Associate Infusion Nurse 04/06/22 Bhumi Abdi RN [address] [place] [phone] [email or web address] Associate Infusion Nurse 10/06/22 documented as of this encounter Additional Source Comments The information contained in this document represents components of the legal health record. It is not the complete legal health record.[facility]
--- OUTSIDE RECORDS SUMMARY | 2025-06-17 14:14 | XMS_ITS | Encounter Summary ---
Author Organization [facility] Address [address] [place] [address] Phone Care Team Providers Care Writer Editor Name Role Phone Anamaria Tabares MD Primary Care Provider [phone] Self-Referred, Patient Unavailable Unavailab Mitzi Lyles CLOTH PATTERN MAKER Unavailable [phone] Raymond Wilson MD Unavailable Adenike Ashby RN Unavailable [phone] Sekou Watson MD Unavailable [phone] James Jo MD Unavailable [phone] Gracie Chang MD Unavailable [phone] Brandy Alarcon RN Unavailable [email or web address] .[place] Juani Chatman RN Unavailable Dunia@ [facility].[place] Juani Chatman RN Unavailable Dunia@ [facility].[place] Bhumi Abdi RN Unavailable YANIRA [email or web address] Shruti George NP Primary Care Provider Encounter Details Date Type Department Care Team (Late st Contact Info) Description 01/15/2022 Procedure Pass [facility] Echocardiography [address] [place] [address] Social History Tobacco Use Types Packs/Day Years [...] 8:50 AM EST Blood Draw Laboratory Services, [facility] at [address] [address] Raymond Wilson MD [address] [place] [phone] [email or web address] 08/20/2025 9:30 AM EST Office Visit [facility], [facility], [facility] at [address] [address] Mitzi Huber, [address] [address] [email or web address]. [facility] 08/20/2025 10:30 AM EST Infusion Infusion Therapy Services [facility], [facility] at [address] [address] Raymond Wilson MD [address] [place] [phone] [email or web address]@[email or web address] documented as of this encounter Visit Diagnoses [...] Patient tested positive for COVID-29 on 02/26. -Degdinora C. 03/08/22 02/26/2022 02/26/2022 03/18/2022 1:24 AM E DT documented as of this encounter Care Teams Writer Editor Relationship Specialty Start Date End Date Anamaria Tabares MD [facility] [place] [address] PCP - General Internal Medicine 01/06/22 12/19/23 Shruti George, NORY [address] [place] [phone] [email or web address] PCP - General Nurse Practitioner 12/20/23 Self-Referred, Patient 01/06/22 Mitzi Huber CNP [address] [place] [phone] [email or web address]. [facility] Medical Oncology 02/04/22 Raymond Wilson MD [address] [place] [phone] Dianna@[email or web address] Medical Oncology 02/04/22 Adenike Ashby, JOSUE [address] [place] [phone] [email or web address] Primary Infusion Nurse 02/04/22 Sekou Watson MD [address] [place] [address] [place] [address] Plastic and Reconstructive Surgery 02/19/22 James Jo MD [facility] [address] [place] [phone] [email or web address] Radiation Oncology 02/19/22 Gracie Chang MD [address] [place] [address] Surgical Oncology 02/19/22 Brandy Alarcon RN [address] [place] [address] [email or web address] Primary Infusion Nurse 04/06/22 Junai Chatman RN [address] [place] [phone] Dunia@[email or web address] Associate Infusion Nurse 04/06/22 04/06/22 Juani Chatman RN [address] [place] [phone] Dunia@[email or web address] Associate Infusion Nurse 04/06/22 Bhumi Abdi RN [address] [place] [address] [email or web address] Associate Infusion Nurse 10/06/22 documented as of this encounter Additional Source Comments The information contained in this document represents components of the legal health record. It is not the complete legal health record.[facility]
--- OUTSIDE RECORDS SUMMARY | 2025-06-17 14:14 | XMS_ITS | Clinical Summary ---
Author Organization [facility] Address [address] [place] [address] Phone Care Team Providers Care Hospice Spiritual Care Coordinator Name Role Phone Required, No Ed Resident/Victoriano Primary Care Provid er Unavailable Allergies Active Allergy Reactions Criticality Noted Date Comments Gluten Meal 03/12/2025 Latex Itching,Other,Rash Low 12/20/2023 Other Reaction(s): itchy rash Sulfa Antibiotics Rash,Itching Low 12/20/2023 Medications anastrozole (Arimidex) 1 MG tablet Take 1 tablet by mouth Daily. Active b complex-folic acid tablet Take by mouth. Active cholecalciferol (Vitamin D-3) 1.25 MG (34764 UT) capsule Take by mouth. Active Leuprolide Acetate (LUPRON IJ) Inject under the skin. Every 3 months, next dose December 11 Active Glucosamine-Cho ndroitin (Osteo Bi-Flex Regular Strength) 250-200 MG tablet Take by mouth. Active ferrous sulfate, 65 FE, 325 (65 Fe) MG tablet Take 325 mg by mouth Daily with breakfast. Active ibuprofen 200 MG tabletIndicatio ns:S/P mastectomy, bilateral Take 2 tablets (400 mg) by mouth every 6 (six) hours if needed for mild pain. Take with food to avoid upset stomach 10/11/2024 Active Active Problems Problem Noted Date Diagnosed Date Gastroesophageal reflux disease 10/11/2024 S/P mastectomy, bilateral 06/18/2024 Personal history of breast cancer 06/18/2024 History of breast cancer 09/18/2021 Social History Tobacco Use Types Packs/Day Years Used Date Smoking Tobacco: Never Passive Smoke Exposure: Never Smokeless Tobacco: Never Tobacco Cessation:Counseling Given: Not Answered Alcohol Use Standard Drinks/Week Comments Yes 0 (1 standard drink = 0.6 oz pur e alcohol) per pt, few drinks/month Comments No Sex and Gender Information Value Date Recorded Sex Assigned at Female 10/16/2024 10:39 AM EST Legal Sex Female 11:26 AM EST Gender Identity Female 10/16/2024 10:39 AM EST Sexual Orientation Straight 10/16/2024 10 :39 AM EST Last Filed Vital Signs Vital Sign Reading Time Taken Comments Blood Pressure 140/90 03/12/2025 10:47 AM EDT checked twice Pulse 61 03/12/2025 10:47 AM EDT Temperature 36.3 C (97.3 F) 03/12/2025 10:47 AM EDT Respiratory Rate 17 03/12/2025 10:4 7 AM EDT Oxygen Saturation 99% 03/12/2025 10: 47 AM EDT Inhaled Oxygen Concentration - - Weight 71.7 kg (158 lb 1.1 oz) 03/12/2025 10:47 AM EDT Height 175.3 cm (5' 9 ) 03/12/2025 10:4 7 AM EDT Body Mass Index 23.34 03/12/2025 10:47 AM EDT Plan of Treatment Upcoming Encounters Date Type Department Care Team (Late st Contact Info) Description 07/19/2025 11:30 AM EST Office Visit [facility] Plastic Surgery [address] [facility] [place] [id number] Sekou Watson MD [address] [facility] 1ST FLOOR [address] [place] [address] Health Maintenance Due Date Last Done Comments TD Vaccine (21+ Years) 1981 MMR Vaccines (1 of 1 - Stand lianna series) 1982 Varicella Vaccines (1 of 2 - 13+ 2-dose series) 1994 Hepatitis C Screening 1999 Hepatitis B Vaccines (1 of 3 - 19+ 3-dose series) 2000 Pap Smear 2002 Cervical Cancer Screening 2011 HPV/Cotest 2011 Influenza Vaccine (#1) 2025 Zoster Vaccines (1 of 2) 2031 HIB Vaccines Aged Out No longer eligi ble based on patient's age to complete this topic HPV Vaccines Aged Out No longer eligi ble based on patient's age to complete this topic Hepatitis A Vaccines Aged Out No long er eligible based on patient's age to complete this topic IPV Vaccines Aged Out No longer eligi ble based on patient's age to complete this topic Meningococcal B Vaccine Aged Out No l onger eligible based on patient's age to complete this topic Meningococcal Vaccine Aged Out No edwige linn eligible based on patient's age to complete this topic Pneumococcal Vaccine: Pediat rics (0 to 5 Years) and At-Risk Patients (6 to 49 Years) Aged Out No longer eligible b ased on patient's age to complete this topic Rotavirus Vaccines Aged Out No longer eligible based on patient's age to complete this topic Insurance GENERIC COMMERCIAL Advance Directives For more information, please contact: [phone] (Available ) * Resuscitation Status (Latest Code Status on File) Date Activated Date Inactivated Comments 10/11/2024 7:21 AM 10/11/2024 7:22 PM Question Answer Comments If no pulse and not breathing: Attempt CPR If pulse and breathing present: Intubati on and comparative sociology professor mechanical ventilation Care Teams Hospice Spiritual Care Coordinator Relationship Specialty Start Date End Date Required, No Ed Resident/Victoriano PCP - General Family Medicine 12/23/23
--- OUTSIDE RECORDS SUMMARY | 2025-06-17 14:14 | XMS_ITS | Encounter Summary ---
Author Organization [facility] Address [address] [facility] [address] [place] [address] Phone Care Team Providers Care Engraver Steel Plate Name Role Phone Anamaria Tabares MD Primary Care Provider [phone] Self-Referred, Patient Unavailable Unavailab Mitzi Lyles CNP Unavailable [phone] Raymond Wilson MD Unavailable Adenike Ashby RN Unavailable [phone] Sekou Watson MD Unavailable James Jo MD Unavailable [phone] Gracie Chang MD Unavailable [phone] Brandy Alarcon RN Unavailable [email or web address] Juani Chatman RN Unavailable Dunia@ [email or web address] Juani Chatman RN Unavailable Dunia@ [email or web address] Bhumi Abdi RN Unavailable [email or web address] [email or web address] Shruti George NP Primary Care Provider Encounter Details Date Type Department Care Team (Late st Contact Info) Description 01/21/2022 Telephone [facility] Angio Interventional Radiology [address] [place] [address] Sandy Suggs, JOSUE [address] [place] [address] [email or web address] Social History Tobacco Use Types Packs/Day Years Used Date Smoking Tobacco: Never Assessed Comments Unknown Sex and Gender Information Value [...] Blood Draw Laboratory Services, [facility] at [address] [address] Raymond Wilson MD [address] [place] [phone] [email or web address] 08/20/2025 9:30 AM EST Office Visit [facility], [facility], [facility] at [address] [address] Mitzi Huber, [address] [address] [email or web address]. [facility] 08/20/2025 10:30 AM EST Infusion Infusion Therapy Services [facility], [facility] at [address] [address] Raymond Wilson MD [address] [place] [address] [email or web address] documented as of this encounter Visit Diagnoses [...] Patient tested positive for COVID-29 on 02/26. -Deguene C. 03/08/22 02/26/2022 02/26/2022 03/18/2022 1:24 AM E DT documented as of this encounter Care Teams Engraver Steel Plate Relationship Specialty Start Date End Date Anamaria Tabares MD [facility] [place] [address] PCP - General Internal Medicine 01/06/22 12/19/23 Shruti George, NORY [address] [place] [phone] [email or web address] PCP - General Nurse Practitioner 12/20/23 Self-Referred, Patient 01/06/22 Mitzi Huber CNP [address] [place] [address] [email or web address]. [facility] Medical Oncology 02/04/22 Raymond Wilson MD [address] [place] [address] [email or web address] Medical Oncology 02/04/22 Adenike Ashby, JOSUE [address] [place] [address] [email or web address] Primary Infusion Nurse 02/04/22 Sekou Watson MD [address] [place] [address] [place] [address] Plastic and Reconstructive Surgery 02/19/22 James Jo MD [address] [phone] [email or web address] Radiation Oncology 02/19/22 Gracie Chang MD [address] [place] [address] Surgical Oncology 02/19/22 Brandy Alarcon RN [address] [place] [address] [email or web address] Primary Infusion Nurse 04/06/22 Juani Chatman RN [address] [place] [address] [email or web address] Associate Infusion Nurse 04/06/22 04/06/22 Juani Chatman RN [address] [place] [address] [email or web address] Associate Infusion Nurse 04/06/22 Bhumi Abdi RN [address] [place] [address] [email or web address] Associate Infusion Nurse 10/06/22 documented as of this encounter Additional Source Comments The information contained in this document represents components of the legal health record. It is not the complete legal health record.[facility]
--- OUTSIDE RECORDS SUMMARY | 2025-06-17 14:14 | XMS_ITS | Clinical Summary ---
Author Organization [facility] Address [address] [place] [address] Care Team Providers Care Grass Cutter Name Role Phone Unavailable Primary Care Provider [...] Cervical Cancer Screening 2002 Pap Smear 2002 Imm-HPV (1 - 3-dose SCDM series) 2008 Breast Cancer Screening (Mammogram) 2021 Alcohol and Drug Screen 09/12/2024 Depression Annual Screen 09/12/2024 Lee-[id number] (2024- season) 05/13/202501/07/ 021, 12/10/2020 Imm-Influenza (#1) 2025 07/23/2016 Imm-DTaP/Tdap/Td (3 - Td or Tdap) 07/23/2026 016, 05/22/2013 Cervical Ablation/Cold-Knife Conization Discontinued Cervical Cryotherapy Discontinued Colposcopy Discontinued Endometrial Biopsy Discontinued Excision/Leep Discontinued HPV Genotyping Discontinued Vaginal Pap Discontinued Vulvoscopy Discontinued Insurance [facility] Member Subscriber Plan / Payer (Ef fective 2020-Present) Name:Shruti Mckeon Relation to Subscriber:Self Name:Shruti Mckeon Payer ID:[id number] Group ID:Not on file Type:Lorie Address: [facility] [address] [place] [id number]
--- OUTSIDE RECORDS SUMMARY | 2025-06-17 14:14 | XMS_ITS ---
Author Organization [facility] Address [address] [facility] [address] [place] [address] Phone Care Team Providers Care Hospital Clerk Name Role Phone Self-Referred, Patient Unavailable Unavailab Mitzi Lyles COMPOSITION ROOFER Unavailable [phone] Raymond Wilson MD Unavailable Adenike Ashby RN Unavailable [phone] Sekou Watson MD Unavailable James Jo MD Unavailable [phone] Gracie Chang MD Unavailable [phone] Brandy Alarcon RN Unavailable [email or web address] Juani Chatman RN Unavailable Dunia@ [email or web address] Bhumi Abdi RN Unavailable YANIRA [email or web address] Shruti George DICE MANAGER Primary Care Provider Active Problems Patient Care Coordination No te Formatting of this note migh t be different from the original. 02/19/22: [id number] and paper tape trial, itchiness w/Sorbaview Pt tolerates skin prep, IV 3000 and paper tape-06/01/22 Problem Noted Date Diagnosed Date Malignant neoplasm of left b reast in female, estrogen receptor positive 01/11/2022 Current Treatment and Therapy Plans LEUPROLIDE ACETATE 3 MONTH (LUPRON DEPOT 3 MONTH)* Plan Start Date:10/05/2022 Plan Provider:Raymond Wilson MD Linked Problems Malignant neoplasm of left b reast in female, estrogen receptor positive, unspecified site of breast Treatment Medications leuprolide (3 month) (LUPRON DEPOT 3 MONTH) ZOLEDRONIC ACID (ZOMETA)* Plan Start Date:03/05/2025 Plan Provider:Mitzi Huber CNP Linked Problems Malignant neoplasm of left b reast in female, estrogen receptor positive, unspecified site of breast Treatment Medications No medications scheduled. Past Treatment and Therapy Plans TREATMENT PLAN Plan Name Start Date Discontinue Date Treatment Medications Discontinue Reason Plan Provider Cycles ACT - DOXORUBICIN 60 MG/M2/CYCLOPH OSPHAMIDE 600 MG/M2 EVERY 2 WEEKS/PACLITA XEL 175 MG/M2 EVERY 2 WEEKS 02/05/20 22 10/05/2022 cycloPHOSphamide (CYTOXAN) infusion 250 mL (powder vial)DOXOrubicin (ADRIAMYCIN)PACLit eli (TAXOL) IVPB in 500 mL (Doses GREATER than 199 mg) a. Therapy Complete Raymond Wilson MD 8 of 8 cycles completed Lifetime Dose Tracking * Chemical Lifetime Dose Automatic Entry Manual Entr y doxorubicin 243.854 mg/m2 (456 mg) 243.854 mg/m2 (456 mg) 0 mg/m2 (0 mg)
--- OUTSIDE RECORDS SUMMARY | 2025-06-17 14:15 | XMS_ITS | Encounter Summary ---
Author Organization [facility] Address [address] [facility] [address] [place] [address] Phone Care Team Providers Care Environmental Conservation Professor Name Role Phone Self-Referred, Patient Unavailable Unavailab Mitzi Lyles BURGLAR ALARM INSPECTOR Unavailable [phone] Raymodn Wilson MD Unavailable Adenike Ashby RN Unavailable [phone] Sekou Watson MD Unavailable James Jo MD Unavailable Gracie Chang MD Unavailable [phone] Brandy Alarcon RN Unavailable [email or web address] .[email or web address] Juani Chatman RN Unavailable Dunia@ [email or web address] Bhumi Abdi RN Unavailable YANIRA [email or web address] Shruti George LUMBER STRAIGHTENER Primary Care Provider Encounter Details Date Type Department Care Team (Late st Contact Info) Description 04/26/2025 Procedure Pass [facility] [place] [address] [address] Social History Tobacco Use Types Packs/Day Years Used Date Smoking Tobacco: Never Assessed Education Answer Date Recorded Are you interested in more education? Not on chico e 01/08/2023 Are you concerned about learning? Not on file 01/08/2023 No 01/08/2023 No 01/08/2023 Digital Access Answer Date Recorded No 02/01/2023 No 02/01/2023 Reliable internet access at home? Not on file 02/01/2023 Device with a working camera? Not on file Intimate Partner Violence Answer Date R ecorded Are you denied basic needs s uch as food, clothing, or medical care? No 08/03/2024 In the past 12 months have y ou been in a relationship with a person who hurts, threatens, or tries to control you? No 08/03/2024 Are you denied basic needs s uch as food, clothing, or medical care? No 08/03/2024 In the past 12 months have y ou been in a relationship with a person who hurts, threatens, or tries to control you? No 08/03/2024 Comments No Sex and Gender Information Value [...] 8:50 AM EST Blood Draw Laboratory Services, [facility] at [address] [address] Raymond Wilson MD [address] [place] [phone] [email or web address] 08/20/2025 9:30 AM EST Office Visit [facility], [facility], [facility] at [address] [address] Mitzi Huber CNP [address] [place] [address] [email or web address]. [facility] 08/20/2025 10:30 AM EST Infusion Infusion Therapy Services [facility], [facility] at [address] [address] Raymond Wilson MD [address] [place] [address] [email or web address] documented as of this encounter Visit Diagnoses Not on filedocumented in this encounter Care Teams Environmental Conservation Professor Relationship Specialty Start Date End Date Shruti George NP [address] [place] [address] [email or web address] PCP - General Nurse Practitioner 12/20/23 Self-Referred, Patient 01/06/22 Mitzi Huber CNP [address] [place] [address] [email or web address] Medical Oncology 02/04/22 Raymond Wilson MD [address] [place] [address] [email or web address] Medical Oncology 02/04/22 Adenike Ashby RN [address] [place] [phone] [email or web address] Primary Infusion Nurse 02/04/22 Sekou Watson MD [address] [place] [address] [place] [address] Plastic and Reconstructive Surgery 02/19/22 James Jo MD [facility] [address] [place] [phone] [email or web address] Radiation Oncology 02/19/22 Gracie Chang MD [address] [place] [address] Surgical Oncology 02/19/22 Brandy Alarcon RN [address] [place] [phone] [email or web address] Primary Infusion Nurse 04/06/22 Juani Chatman RN [address] [place] [phone] [email or web address]@[email or web address] Associate Infusion Nurse 04/06/22 Bhumi Abdi RN [address] [place] [address] [email or web address] Associate Infusion Nurse 10/06/22 documented as of this encounter Additional Source Comments The information contained in this document represents components of the legal health record. It is not the complete legal health record.[facility]
--- OUTSIDE RECORDS SUMMARY | 2025-06-17 14:15 | XMS_ITS | Clinical Summary ---
Author Organization [facility] Address [address] [place] [address] Phone Care Team Providers Care Microsoft Access Developer Name Role Phone Self-Referred, Patient Unavailable Unavailab Mitzi Lyles CORPORATE ACCOUNTING MANAGER Unavailable [phone] Raymond Wilson MD Unavailable Adenike Ahsby RN Unavailable [phone] Sekou Watson MD Unavailable James Jo MD Unavailable Gracie Chang MD Unavailable [phone] Brandy Alarcon RN Unavailable [email or web address] Juani Chatman RN Unavailable [email or web address] Bhumi Abdi RN Unavailable [email or web address] Shruti George DUMPER BAILER OPERATOR Primary Care Provider Allergies Active Allergy Reactions Criticality Noted Date Comments Latex Rash Low 08/03/2024 Sulfa (Sulfonamide Antibiotics) Rash Low 01/10 Medications ferrous sulfate 325 mg (65 mg [place] iron) tablet Take 1 tablet by mouth every morning. 08/28/2024 Active famotidine (PEPCID) 20 MG tablet Take 1 tablet by mouth every morning. 08/29/2024 Active glucosamine-abdiel droitin 250-200 mg Tab Take by mouth. Active vitamin B complex-folic acid (B COMPLEX 1, WITH FOLIC ACID,) 0.4 mg Tab Take by mouth. Active cholecalciferol (VITAMIN D3) 50,000 unit capsule Take by mouth. Active anastrozole (ARIMIDEX) 1 mg tablet TAKE 1 TABLET BY MOUTH EVERY DAY 90 tablet 3 10/25/2024 Active Active Problems Patient Care Coordination No te Formatting of this note migh t be different from the original. 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, estrogen receptor positive 01/11/2022 Encounters Date Type Department Care Team Description 05/28/2025 8:45 AM EDT Infusion Infusion Therapy Services [facility] [place] [facility] [place] [address] [address] Raymond Wilson MD Flynn, Nancy, RN Malignant neoplasm of left breast in female, estrogen receptor positive, unspecified site of breast (Primary Dx) 05/02/2025 1:31 PM EDT - 05/02/2025 11:59 PM EDT Hospital Encounter [place], [place] [address] [address] Tiffany Johnson NP Leone, Jose P, MD Discharge Disposition: Home or Self Care 04/26/2025 Procedure Pass [place] [address] [address] 04/26/2025 Orders Only [facility], [facility] [place] [address] [facility], [address]th [place] [address] Tiffany Johnson NP Malignant neoplasm of left breast in female, estrogen receptor positive, unspecified site of breast (Primary Dx) from Last 3 Months Social History Tobacco Use Types Packs/Day Years [...] Orientation Straight 08/03/2024 12 :18 PM EST Last Filed Vital Signs Vital Sign Reading Time Taken Comments Blood Pressure 124/78 05/28/2025 9:27 AM EDT Pulse 58 05/28/2025 9:27 AM EDT Temperature 36.3 C (97.3 F) 05/28/2025 9:27 AM EDT Respiratory Rate 16 05/28/2025 9:27 AM EDT Oxygen Saturation 100% 05/28/2025 9:27 AM EDT Inhaled Oxygen Concentration - - Weight 71.3 kg (157 lb 3 oz) 05/28/2025 9:27 AM EDT Height 175.5 cm (5' 9.09 ) 03/05/2025 8:58 AM ED T Body Mass Index 23.15 03/05/2025 8:58 AM EDT Plan of Treatment Upcoming Encounters Date Type Department Care Team (Late st Contact Info) Description 08/20/2025 8:50 AM EST Blood Draw Laboratory Services, [facility] [place] [facility] [place] [address] [address] Raymond Wilson MD [address] [place] [id number] [email or web address] 08/20/2025 9:30 AM EST Office Visit [facility], [facility], [facility] at [address] [address] Mitzi Huber CNP [address] [place] [phone] [email or web address] 08/20/2025 10:30 AM EST Infusion Infusion Therapy Services [facility] at [address] [address] Raymond Wilson MD [address] [place] [phone] [email or web address] Health Maintenance Due Date Last Done Comments DEPRESSION SCREENING 1993 SMOKING Hx and SMOKELESS TOBACCO SCREENING 1994 HEPATITIS C SCREENING 1999 HIV ONE-TIME SCREENING (18-6 5 YEARS) 1999 PNEUMOCOCCAL VACCINES (0-49 years) (1 of 2 - PCV) 2000 PAP SMEAR 2002 MAMMOGRAM 2021 INFLUENZA VACCINE (#1) 2025 07/23/2016 COVID-19 VACCINE (3 - 2024-2 6 season) 2025 01/07/2021, 12/10/2020 Adult Td,Tdap Booster 07/23/2026 07/23/2016 HEPATITIS A VACCINES Aged Out No long er eligible based on patient's age to complete this topic HIB VACCINES Aged Out No longer eligi ble based on patient's age to complete this topic MENINGOCOCCAL VACCINES (ACWY) Aged Out No longer eligible based on patient's age to complete this topic MENINGOCOCCAL VACCINES (B) Aged Out N o longer eligible based on patient's age to complete this topic Medical Devices Implanted Type Area Change Person Device Identifier Shelf Expiration Date Model / Serial / Lot Port Dignity 6.6f Power Injectable Mid-Sized W/Attachable Catheter - [id number] Implanted:Qty: 1 on 01/22/2022 by Ty Hawkins PA-C at [facility] Right: Chest Wall MED COMP 08/11/2026 [id number] / / [id number] Procedures Procedure Name Priority Date/Time Associated Diagnosis Comments CT ABDOMEN/PELVIS WITH CONTRAST Routine 05/02/2025 3:08 PM EDT Malignant neoplasm of left breast in female, estrogen receptor positive, unspecified site of breast from Last 3 Months Results * CT ABDOMEN/PELVIS WITH CONTRAST (05/02/2025 3:08 PM EDT) Anatomical Region Laterality Modality Abdomen, Pelvis Computed Tomogra phy Other 05/02/2025 4:03 PM EDT Impressions 05/02/2025 5:48 PM EDT 1. No CT findings explaining patient's symptoms. 2. No metastatic disease in the abdomen or pelvis. ATTESTATION: Natividad Alexander, as teaching physician have reviewed the images, if any, for this patient's exam, and if necessary, have edited the report originally created by Horace Posada. Narrative 05/02/2025 5:[address] ABDOMEN/PELVIS WITH CONTRAST Referring clinician's provided indication for this examination in Epic: * Invasive breast cancer, stage I/II/III, initial workup; persistent RUQ pain TECHNIQUE: Multidetector-row CT of the abdomen and pelvis was performed after administration of intravenous contrast using tailored dose modulation techniques. Images were reconstructed in the axial, coronal, and sagittal planes. COMPARISON: None available. FINDINGS: Lower Chest: No consolidation or pleural effusions. Liver: No focal lesions. Biliary: No biliary ductal dilatation. Spleen: No splenomegaly or focal lesions. Pancreas: No masses or ductal dilatation. Adrenal Glands: No nodules. Kidneys/Ureters: No solid masses, stones, or hydronephrosis. Bowel: No distention or wall thickening. Peritoneum/Retroperitoneum: No masses, pneumoperitoneum, or fluid. Lymph Nodes: No lymphadenopathy. Pelvic Organs/Bladder: No mass. Vessels: No abdominal aortic aneurysm. Bones/Soft Tissues: Small fat-containing umbilical hernia. Surgical materials within the abdominal wall related to prior breast reconstruction. No destructive osseous lesions. Transitional lumbosacral anatomy. Procedure Note Natividad Bocanegra MD - 05/02/2025 CT ABDOMEN/PELVIS WITH CONTRAST Referring clinician's provided indication for this examination in Epic: *Invasive breast cancer, stage I/II/III, initial workup; persistent RUQpain TECHNIQUE: Multidetector-row CT of the abdomen and pelvis was performedafter administration of intravenous contrast using tailored dosemodulation techniques. Images were reconstructed in the axial, coronal,and sagittal planes. COMPARISON: None available. FINDINGS: Lower Chest: No consolidation or pleural effusions. Liver: No focal lesions. Biliary: No biliary ductal dilatation. Spleen: No splenomegaly or focal lesions. Pancreas: No masses or ductal dilatation. Adrenal Glands: No nodules. Kidneys/Ureters: No solid masses, stones, or hydronephrosis. Bowel: No distention or wall thickening. Peritoneum/Retroperitoneum: No masses, pneumoperitoneum, or fluid. Lymph Nodes: No lymphadenopathy. Pelvic Organs/Bladder: No mass. Vessels: No abdominal aortic aneurysm. Bones/Soft Tissues: Small fat-containing umbilical hernia. Surgicalmaterials within the abdominal wall related to prior breastreconstruction. No destructive osseous lesions. Transitional lumbosacralanatomy. IMPRESSION: 1. No CT findings explaining patient's symptoms. 2. No metastatic disease in the abdomen or pelvis. ATTESTATION: Natividad Alexander, as teaching physician have reviewedthe images, if any, for this patient's exam, and if necessary, have editedthe report originally created by Horace Posada. Tiffany Johnson NP IMG CT ABD/PELVIS Final Re sult from Last 3 Months Insurance [employer] [facility] PLUS PPO ubitus PLUS PPO ubitus PLUS PPO ubitus PLUS PPO [employer] G[employer] PLUS PPO [employer] PLUS PPO ubitus PLUS PPO [employer] PLUS PPO [employer] PLUS PPO Care Teams Microsoft Access Developer Relationship Specialty Start Date End Date Shruti George NP [address] [place] [phone] [email or web address] PCP - General Nurse Practitioner 12/20/23 Self-Referred, Patient 01/06/22 Mitzi Huber CNP [address] [place] [phone] [email or web address] Medical Oncology 02/04/22 Raymond Wilson MD [address] [place] [phone] [email or web address] Medical Oncology 02/04/22 Adenike Ashby RN [address] [place] [address] [email or web address] Primary Infusion Nurse 02/04/22 Sekou Watson MD [address] [place] [address] Dr Conde [address] [place] [phone] Plastic and Reconstructive Surgery 02/19/22 James Jo MD [address] [phone] [email or web address] Radiation Oncology 02/19/22 Gracie Chang MD [address] [place] [phone] Surgical Oncology 02/19/22 Brandy Alarcon RN [address] [place] [phone] [email or web address] Primary Infusion Nurse 04/06/22 Juani Chatman RN [address] [place] [address] [email or web address] Associate Infusion Nurse 04/06/22 Bhumi Abdi RN [address] [place] [address] [email or web address] Associate Infusion Nurse 10/06/22 Additional Source Comments The information contained in this document represents components of the legal health record. It is not the complete legal health record.[facility]
== END 2025-06-17 12:24 | disposition home or self-care (01) ==
LOC: HO.HMCFM 11:40
PROVIDERS: PCP Nurse Practitioner Family; Visit Provider Nurse Practitioner Family
DX: R51.9 Headache, unspecified (principal); K21.9 Gastro-esophageal reflux disease without esophagitis; K90.0 Celiac disease; F45.8 Other somatoform disorders; R45.89 Other symptoms and signs involving emotional state; Z28.21 Immunization not carried out because of patient refusal

== ENCOUNTER 2025-07-15 13:43 | Outpatient (AMB) | payer OTHER, SELFPAY ==
--- NOTE | 2025-07-15 13:44 | A.OFFPC_ITS ---
Vital Signs 07/15/25 13:47 Height 5 ft 10 in Weight 159 lb 4 oz BMI 22.8 BP 138/80 Blood Pressure Location Rt brachial Position Sitting Respiration 13 Pulse 65 Pulse Source Pulse Oximeter Temp 97.4 F Temp Source Oral Pulse Oximetry (%) 99 Oxygen Delivery Method Room Air Intake Visit Reasons: 4weeks FU Headache Intake Note: Follow up on headaches. Patient states her headaches are better. Diversional Therapist Required: No Allergies Sulfa (Sulfonamide Antibiotics) (SULFA (SULFONAMIDE ANTIBIOTICS)) Allergy (Intermediate, Verified 07/15/25 13:44) HIVES, rash Latex, Natural Rubber Allergy (Mild, Verified 07/15/25 13:44) rash Tobacco use date assessed: 07/15/25 Dental Screening Dental Screen Date: 07/15/25 Did you have a dental visit in the last 12 months?: Yes Did you have a dental problem in the last 6 months where you did not have access to dental care?: No Was dental information given to patient?: Patient has dentist HPI HPI Comments History of Present Illness Details 44-year-old female with 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 Shows to to hemorrhoids, no other significant abnormality such as fissure, ulcer, polyp, or colitis. Repeat colonoscopy for asymptomatic colorectal cancer screening recommended in 10 years (2032) DEXA October 2022 within normal limits Von Sorenson due for annual this year. Next appt Wheatley's Day. Mammo UTD Flu declined History of Present Illness The patient is a 44-year-old female presenting for a follow-up on headaches. Headache: - The patient was seen four weeks prior for headaches and was advised to start magnesium and riboflavin for prevention and sumatriptan for acute episodes. - Since the last visit, she has experien nora only one headache, which occurred around . - This recent headache was described as a 4/10 in severity and was not pulsating, unlike her previous headaches. - She did not take the prescribed sumatr iptan for this headache as she was not at home and was driving. - She treated the headache with a decong estant and Tylenol, suspecting it could be sinus-related, and it resolved by the next morning. - The patient believes the magnesium and riboflavin supplements are helping, and she also reports improved sleep quality. - The patient has informed her care team at [facility] about the new supplements via the patient portal and will provide a further update during her next Lupron injection appointment in August. Review of Systems - Neurological: Reports significant impr ovement in headaches, with only one mild, non-pulsating episode in the past four weeks. - Constitutional: Reports sleeping sai r and not tossing and turning as much. - All other systems reviewed and are neg ative. Physical Exam General: Well developed, well nourished, in no acute distress. Appears stated age. No pain w/ palp over trigeminal nerve. No TMJ dislocation or clicking. No TTP of the TMJ bilat. Head: Normocephalic, atraumatic. Neck: Supple, FROM. Negative kernigs. Eyes: Pupils are equal, round and reactive to light and accommodation. Conjunctivae are clear. Vision grossly normal. EOMI WNL Musculoskeletal: Joints are nontender, without swelling, redness, or effusions. Pulses: Peripheral pulses are equal and palpable bilaterally. Extremities: No clubbing, cyanosis nor edema is noted. Psych: Mood and affect appropriate. Neuro - see below. Medical Decision Making The patient is a 44-year-old female presenting for a four-week follow-up appointment for headaches. She has shown significant improvement since starting prophylactic treatment with magnesium and riboflavin, reporting only one mild, non-pulsating headache in the past month. The positive response to this preventative therapy makes a primary headache disorder the most likely diagnosis, and considerably lowers the suspicion for more severe underlying pathology such as an aneurysm or brain tumor, which would not respond to these supplements. Her neurological examination today is completely normal and reassuring, consistent with findings from her previous visit. Given her clinical improvement and normal exam, neuroimaging is not indicated at this time, as the potential risks would outweigh the very low likelihood of finding a clinically significant abnormality. The plan is to continue the current treatment regimen. She will continue with sumatriptan for abortive therapy as needed, with caution advised regarding its use when she may need to drive, given the potential for sedation. Routine follow-up is scheduled for her physical in December, and she is advised to make contact if her symptoms change. Plan 1. Headache - The patient reports significant improv ement in headache frequency and severity since initiating prophylactic therapy with magnesium and riboflavin. - She will continue the current prophyla ctic regimen. - Sumatriptan is prescribed for acute, s evere headaches, with instructions to use it only when in a safe, non-driving situation to assess for potential side effects such as fatigue. - For milder headaches, she may use Tyle nol and caffeine; NSAIDs should be avoi ded. - Imaging is not indicated at this time due to clinical improvement. - Follow up for a physical is scheduled for December, and the patient is instructed to send a message if symptoms change or worsen. Patient Instructions - Continue taking your magnesium and rib oflavin supplements as they appear to be helping prevent your headaches. - Keep the sumatriptan prescription avai lable for a severe headache. - If you need to take sumatriptan, only do so when you are at home and do not need to drive, as it can cause drowsiness and you are not sure how it will affect you. - For milder headaches, you can use Tyle nol and a small amount of caffeine. - Continue to avoid NSAID medications li ke ibuprofen. - Your next scheduled appointment is in December for your physical exam. - Please send a message if your headache symptoms change or become worse before your next appointment. Consent Patient was informed and verbally consented to the use of an ambient scribe for clinic note documentation during this visit. Total time spent caring for the patient today was 30 minutes. This includes time spent before the visit reviewing the chart, time spent during the visit, and time spent after the visit on documentation, reviewing laboratory results, diagnostic imaging, medications, performing a medically necessary evaluation, counseling on diagnoses, care coordination, ordering appropriate tests, ordering appropriate medications, review of tests performed by other providers, reporting test results with the patient, communication with other healthcare providers. 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 Invasive lobular carcinoma of breast in female Abnormal mammogram of left breast Normal Pap smear Annual physical exam (~12/2024) Surgical History History of esophagogastroduodenoscopy (EGD) Hx of colonoscopy (~2022) Hx of bilateral mastectomy History of appendectomy Family History Maternal Grandfather Colon polyps Skin cancer Social History Household Members: Spouse and Children Household Members Other:: 2 children Housing: House Are you a primary home care associate to a significant other at home: No Do you presently have visiting nurse or other home services: No 75 years or older and lives alone: No Alcohol intake: current Alcohol intake frequency: does not drink Patient Tobacco Use Status: Never used Tobacco e-Cigarette/Vaping Use: Never Used Second Hand Smoke Exposure: No service: No Current occupational status: employed Current occupation: [employer] Cognitive needs: No Hearing needs: No Vision needs: No Female Reproductive History Menstrual Age of Menarche: 13 Questionnaire Thrive Questionnaire Date Thrive assessed: 12/14/24 I am a: Patient What is your living situation today?: I have a steady place to live Within the past 12 months, did the food you bought not last and you didn't have the money to get more?: Never true Within the past 12 months, did you worry whether your food would run out before you got money to buy more?: Never true Do you have trouble paying for medicines?: No Do you have trouble getting transportation to medical appointments?: No Do you have trouble paying your heating and electricity bill?: No Do you have trouble taking care of your child, family member or friend?: No Do you have trouble with day-to-day activities such as bathing, preparing meals, shopping, managing finances, etc.?: No Are you currently unemployed and looking for a job?: No Are you interested in more education?: No Please select the resources that you would like help with: None Currently or been in a relationship where the following occur: No concerns reported THRIVE Score: 0 AUDREY-7 AMB Questionnaire AUDREY-7 Date AUDREY - 7 assessed: 12/21/24 Source: Developed by Drs. Arun Weller, Lien Lee, Antwon Moses and colleagues, with an educational meli from [employer]. Physical exam (Primary Care) Vital Signs: Last Vital Signs Temp 97.4 F 07/15/25 13:47 Pulse 65 07/15/25 13:47 Resp 13 07/15/25 13:47 BP 138/80 07/15/25 13:47 Pulse Ox 99 07/15/25 13:47 Oxygen Delivery Method Room Air 07/15/25 13:47 BMI result Body Mass Index 22.8 Tobacco/Smoking Status: Tobacco use Status Tobacco use date assessed 07/15/25 07/15/25 13:45 Patient Tobacco Use Status Never used Tobacco 07/15/25 13:45 e-Cigarette/Vaping Use Never Used 07/15/25 13:45 Thrive Assessment: Date of Thrive Assessment Date Thrive assessed 12/14/24 07/15/25 13:45 Currently or been in a relationship where the following occur: No concerns reported Const Orientation/consciousness: patient oriented x3 Neck Neck: Yes no meningeal signs Neuro General: patient oriented x3, gait normal, moves all extremities, Normal light touch and pain sensation, no meningeal signs, no focal motor deficits, CN's II- XI intact bilaterally, normal sensation to monofilament and deep tendon reflexes 2+ bilaterally Cranial nerves: Yes Facial sensation intact/muscles of mastication intact, Yes Normal facial strength present, Yes Midline tongue present, Yes Ability to bilaterally rotate head present and Yes Ability to bilaterally elevate shoulders present Cognition (Neuro): normal cognition Motor exam (neuro): 5/5 motor strength present throughout, Pronator motor function not present, no tremor noted, no asterixis, Motor fasciculations not present, Normal motor muscle tone present throughout and Motor abnormalities not present Sensory Exam: double simultaneous stimulation for sensation normal Deep tendon reflexes (DTR's): Right triceps reflex intensity grade: 2+, Left triceps reflex intensity grade: 2+, Rt Biceps (C5, C6): 2+, Left biceps reflex intensity grade: 2+, Right brachioradialis reflex intensity grade: 2+, Left brachioradialis reflex intensity grade: 2+, Right patellar reflex intensity grade: 2+, Left patellar reflex intensity grade: 2+, Right ankle reflex intensity grade: 2+ and Left ankle reflex intensity grade: 2+ Coordination: [id number] test normal, bmap-[id number] test normal, tandem gait normal and Romberg test negative Romberg Test: Negative Comatose Patient: corneal reflex present Coding Level of Care Code Est Pt Level 4 (18707) Complex EM visit Add On G2211 Diagnoses Nonintractable episodic headache, unspecified headache type R51.9 Headache type: unspecified Headache chronicity pattern: episodic headache Intractability: not intractable Assessment & Plan Assessment & Plan (1) Headache: Code(s): R51.9 - Headache, unspecified Category: Medical Qualifiers: Headache type: unspecified Headache chronicity pattern: episodic headache Intractability: not intractable Qualified Code(s): R51.9 - Headache, unspecified Plan .
[2025-07-15 13:47] VITALS: BP 138/80; PULSE 65; RESP 13; TEMP 36.3; O2SAT 99; BMI 22.8
== END 2025-07-15 14:21 | disposition home or self-care (01) ==
LOC: HO.HMCFM 13:43
PROVIDERS: PCP Nurse Practitioner Family; Visit Provider Nurse Practitioner Family
DX: R51.9 Headache, unspecified (principal)

== ENCOUNTER 2025-07-19 08:47 | Outpatient (REF) | payer OTHER, SELFPAY ==
[2025-07-19 11:39] LABS: INTERNATIONAL NORM RATIO 1.0 (0.9-1.1); Prothrombin Time 12.2 SEC (11.2-13.5)
[2025-07-19 11:42] LABS: Hematocrit 35.6 % (37.0-47.0); Hemoglobin 11.5 g/dl (12.0-16.0); Mean Corpuscular HGB Conc 32.3 g/dl (31.0-35.0); Mean Corpuscular Hemoglobin 30.5 pg (27.0-33.0); Mean Corpuscular Volume 94.4 fL (80.0-98.0); NRBC Abs Auto 0.000 X10*3/uL (0.0-0.012); NRBC Pct Auto 0.0 /100WBC (0.0-0.2); Platelet Count 215 X10*3/uL (160-400); Red Blood Count 3.77 X10*6/uL (4.20-5.50); White Blood Count 3.6 X10*3/uL (4.8-10.8)
[2025-07-19 12:22] LABS: Ferritin 116 ng/mL (10-250); Iron 110 mcg/dL (30-160); Percent Iron Saturation 41 % (15-50); Total Iron Binding Capacity 268 mcg/dL (228-428); Unsaturated Iron Binding 158 ug/dL
[2025-07-19 12:37] LABS: Folate 6.3 ng/mL (> or = 4.0); Vitamin B12 363 pg/mL (200-900)
== END 2025-07-19 08:48 | disposition home or self-care (01) ==
LOC: HO.WFDLDS 08:47
PROVIDERS: Visit Provider Internal Medicine
DX: K90.0 Celiac disease (principal)
CPT/HCPCS: 36415; 82306; 82607; 82728; 82746; 83540; 84446; 84590; 85027; 85610; 86364

== ENCOUNTER 2025-07-22 08:54 | Outpatient (AMB) | payer OTHER, SELFPAY ==
--- OUTSIDE RECORDS SUMMARY | 2025-07-19 11:30 | XMS_ITS | Encounter Summary ---
Author Organization [facility] Address [address] [place] [address] Phone Care Team Providers Care Staff Home Therapy Rn Name Role Phone Shruti Robbins Primary Care Provider [phone] Reason for Visit * Reason Comments Follow-up * Follow Up Appointment (Routine) - Closed Specialty Diagnoses / Procedures Referred By Ravi ring Referred To Contact Plastic Surgery Procedures Follow Up In Plastic Surgery Sekou Watson MD [address] [address] Phone: tel: fax: Referral ID Status Reason Start Date Expiration Date Visits Re quested Visits Authorized [id number] Closed 11/23/2024 11/23/2025 1 1 Encounter Details Date Type Department Care Team (Late st Contact Info) Description 07/19/2025 11:30 AM EST Office Visit [facility] Plastic [address] [place] [id number] Sekou Watson MD [address] [address] S/P mastectomy, bilateral (Primary Dx); History of breast cancer Social History Tobacco Use Types Packs/Day Years [...] Orientation Straight 10/16/2024 10 :39 AM EST documented as of this encounter Last Filed Vital Signs Vital Sign Reading Time Taken Comments Blood Pressure 134/84 07/19/2025 11:17 AM EST Pulse 71 07/19/2025 11:17 AM EST Temperature 36.7 C (98 F) 07/19/2025 11:17 AM EST Respiratory Rate 16 07/19/2025 11:17 AM EST Oxygen Saturation 99% 07/19/2025 11:17 AM EST Inhaled Oxygen Concentration - - Weight 72 kg (158 lb 11.7 oz) 07/19/2025 11:17 A M EST Height 175.3 cm (5' 9 ) 07/19/2025 11:17 AM EST Body Mass Index 23.44 07/19/2025 11:17 AM EST documented in this encounter Progress Notes * Carol Graves MD - 07/19/2025 11:30 AM EST See note * Sekou Watson MD - 07/19/2025 11:30 AM EST PLASTIC AND RECONSTRUCTIVE SURGERY ESTABLISHED PATIENT VISIT Patient Name: Shruti Mckeon Date of : 1980 History of Present Illness Shruti Mckeon is a 44 y.o. female presenting for follow up after bilateral breast reconstruction with JANIE flaps (L cephalic vein turn down) on 10/20/23 followed by revision with liposuction from abdomen, fat grafting to bilateral reconstructed breasts and left arm and abdomen scar revisions on 10/11/24. Accompanied by . She is overall pleased with her results but notes some persistent asymmetry that leads to insecurity with clothing or certain activities. She also notes the scar on the armis more visible than she would like. Physical Exam Vitals: 07/19/25 1117 BP: 134/84 Pulse: 71 Resp: 16 Temp: 36.7 ??C (98 ??F) SpO2: 99% Vitals reviewed as above General: Well-appearing in no acute distress. Breast: viable flaps with no fat necrosis. Good upper pole transition. Left NAC is slightly high compared to right. Bilateral IMF are level but the skin evelope is excessive on the right with 1.5 lower inferior breast mound.Monitoring skin paddle pincushions on left Extremities: left arm with hypertrophic scar Assessment & Plan Shruti Mckeon is a 44 y.o. female with a history of left breast cancer s/p bilateral areola sparingmastectomies and implant based recon followed by radiation and ultimately bilateral JANIE flaps (L cephalic vein turn down) with revision surgery - hypertrophic scarring. We discussed scar management and improvement with time - we discussed in office vs OR revision of bilateral breast reconstruction with excision of IMF skin on the R and partial excision of skin paddle on the L. We discussed OR would be recommended if fatgrafting. We discussed possibility of wplasty of left arm scar vs laser - booking request placed for in office [id number] documented in this encounter Plan of Treatment Not on file documented as of this encounter Visit Diagnoses Diagnosis S/P mastectomy, bilateral- Primary History of breast cancer Personal history of malignant neoplasm of breast documented in this encounter Care Teams Staff Home Therapy Rn Relationship Specialty Start Date End Date RosendoShruti [address] [place] [address] PCP - General 07/19/25 documented as of this encounter
--- NOTE | 2025-07-22 09:00 | MHC.OFFVIS ---
Vital Signs 07/22/25 09:03 Height 5 ft 10 in Weight 154 lb 5.177 oz BMI 22.1 BP 125/85 Blood Pressure Location Lt brachial Position Sitting Pulse 78 Intake Visit Reasons: celiac Intake Note: Shruti presents in the office as a follow up celiac. CC: She states that she is not having any concerns at this time! Web Development Consultant Required: No Allergies Sulfa (Sulfonamide Antibiotics) (SULFA (SULFONAMIDE ANTIBIOTICS)) Allergy (Intermediate, Verified 07/22/25 09:03) HIVES, rash Latex, Natural Rubber Allergy (Mild, Verified 07/22/25 09:03) rash HPI Comments Details: 42 y.o F with hx of L breast ca stage II s/p double mastectomy, chemo XRT, currently on anastrazole who is here for follow up. 12/20/22: Main CC today is occasional rectal pressure and BRBPR. States that during the chemotherapy her constipation got worse to the point of anal fissure/tearing. Now since Sep BM are a bit more regular 3 times a week but still lumpy and requires considerable straining. Sometimes sees blood on wiping. She is primarily here due to fam hx of polyps in her maternal grandfather, see below. Fam hx: Mat grandfather had advanced polyps so mother gets checked frequently but mother has never had any advanced polyps. Pat grandmother: bladder ca Mat aunt: ovarian ca 02/28/23: Reports persistent intermittent BRBPR and minimal improvement in constipation. Can sometimes also palpate a small lump protruding through open anal opening after BM. Given fam hx she is quite concerned. 04/20/23: Mucosa: Normal to cecum and terminal ileum. Protruding lesions: Medium internal hemorrhoids without stigmata of recent bleeding. 08/29/24: Following up as telehealth for finding of positive tissue transglutaminase Ab. Pt reports that has longstanding normocytic anemia that is non-iron deficiency as per prev discussion with [facility] as well as iron panel here. More recently discussed this with her PCP who referred her to hematology. Labs positive for tissue transglutaminase Ab. Pt herself does not have any other GI sx including abd pain, N,V. Tolerates gluten products just fine. In addition, pt also reflux sx that have been getting worse for the past few weeks. Has not yet taken anything for this. 12/20/24: Irregular Z line (biopsy) Gastritis (biopsy) Abnormal duodenal mucosa (biopsy) Path: A. Duodenum, second portion, biopsy: Duodenal mucosa with mildly increased intraepithelial lymphocytes and preserved villous architecture. See comment. B. Duodenum, bulb, biopsy: Duodenal mucosa with mildly increased intraepithelial lymphocytes, focal partial villous blunting and Nayla gland hyperplasia. See comment. C. Stomach, random, biopsy: - Antral-type and oxyntic mucosa with moderate chronic active inflammation. - Positive for H pylori. D. GE junction, biopsy: - Cardiofundic-type mucosa with moderate chronic, focally active, inflammation; no intestinal metaplasia seen. - Squamous epithelium within normal limits. Comment: The findings in the duodenum may be secondary to the H. pylori infection. However, concurrent celiac disease cannot be entirely ruled out. 01/16/25: Patient seen as tele visit. Reviewed that histology consistent with celiac disease. Reviewed gluten free diet. Gastric biopsy also positive for H pylori. Will proceed with treatment. Has social commitments for later this month, so she will be starting treatment in the beginning of next month, which is reasonable. Otherwise, no acute GI issues. 07/22/25: Here for routine follow up. Reports good compliance to GFD. Reports improvement in energy levels. Labs reviewed, iron panel normal. Pt on PO supplementation. RBC and H/H borderline low. Suspect likely 2/2 B12. Pt was on oral supplementation which she hasnt taken since January. Plans to go back on it. Will recheck in 3 months. Pt also follows with hematology Dr Dickson. TtG pending. BMD 11/2024 with osteopenia. Started on Zometa by PCP. Gets seen at [facility] regularly. 04/23/25: CT abd/pel with IV contrast (Dr Raymond Wilson) - normal. 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 Invasive lobular carcinoma of breast in female Abnormal mammogram of left breast Normal Pap smear Annual physical exam (~12/2024) Surgical History History of esophagogastroduodenoscopy (EGD) Hx of colonoscopy (~2022) Hx of bilateral mastectomy History of appendectomy Family History Maternal Grandfather Colon polyps Skin cancer Social History Household Members: Spouse and Children Household Members Other:: 2 children Housing: House Are you a primary doggy daycare activities director to a significant other at home: No Do you presently have visiting nurse or other home services: No 75 years or older and lives alone: No Alcohol intake: current Alcohol intake frequency: does not drink Patient Tobacco Use Status: Never used Tobacco e-Cigarette/Vaping Use: Never Used Second Hand Smoke Exposure: No service: No Current occupational status: employed Current occupation: [employer] Cognitive needs: No Hearing needs: No Vision needs: No Female Reproductive History Menstrual Age of Menarche: 13 Review of Systems Const All systems reviewed & are unremarkable except as noted in HPI and below Physical Exam Exam Exam: No apparent distress Nonicteric Abdomen soft, nondistended Alert and oriented x3, normal gait Vital Signs: Last Vital Signs Pulse 78 07/22/25 09:03 BP 125/85 07/22/25 09:03 BMI result Body Mass Index 22.1 Assessment & Plan Assessment & Plan (1) Celiac disease: Code(s): K90.0 - Celiac disease Category: Medical (2) Normochromic normocytic anemia: Code(s): D64.9 - Anemia, unspecified Category: Medical (3) Elevated anti-tissue transglutaminase (tTG) IgA level: Code(s): R76.8 - Other specified abnormal immunological findings in serum Category: Medical Plan 1. Biopsy proven celiac 2. Anemia Iron def is resolved with PO supplementation, HP eradication and GFD. Suspect current borderline anemia may be from relative B12 def. Pt encouraged to return to supplementation. Can consider IM replacement if labs not better in 3 months. Plan: - Gluten free diet - TTg pending - Check CBC and B12 in 3 months - Pt gets regular dexa through [facility] [place]- 2024 osteopenia pt on zometa now - Low threshold to screen FDRs for any correlating s/sx CRC screening Average screening intervals apply. Next colo due 2032. Office follow up 6 months Orders: Orders Vitamin B12 3 Months K90.0 - Celiac disease Complete Blood Count Auto Diff 3 Months K90.0 - Celiac disease Coding Level of Care Code Est Pt Level 4 (05773) Complex EM visit Add On G2211 Diagnoses Celiac disease K90.0 Normochromic normocytic anemia D64.9 Elevated anti-tissue transglutaminase (tTG) IgA level R76.8
[2025-07-22 09:03] VITALS: BP 125/85; PULSE 78; BMI 22.1
--- OUTSIDE RECORDS SUMMARY | 2025-07-22 09:32 | XMS_ITS ---
Author Organization [facility] Address [address] [place] [address] Phone Care Team Providers Care Business Account Executive Name Role Phone Self-Referred, Patient Unavailable Unavailab Mitzi Lyles TRAFFIC SUPERINTENDENT Unavailable [phone] Raymond Wilson MD Unavailable Adenike Ashby RN Unavailable [phone] Sekou Watson MD Unavailable James Jo MD Unavailable [phone] Gracie Chang MD Unavailable [phone] Brandy Alarcon RN Unavailable [email or web address] Juani Chatman RN Unavailable Dunia@ [email or web address] Bhumi Abdi RN Unavailable YANIRA [email or web address] Shruti George LIQUOR DEPARTMENT MANAGER Primary Care Provider Active Problems Patient Care Coordination No te Formatting of this note migh t be different from the original. 02/19/22: [id number] and paper tape trial, itchiness w/Sorbaview Pt [...] unspecified site of breast Treatment Medications leuprolide acetate (3 month) (LUPRON DEPOT 3 MONTH) ZOLEDRONIC [...]
--- OUTSIDE RECORDS SUMMARY | 2025-07-22 09:32 | XMS_ITS | Clinical Summary ---
Author Organization [facility] Address [address] [place] [address] Phone Care Team Providers Care Spinning Lathe Operator Automatic Name Role Phone Shruti Robbins Primary Care Provider [phone] Allergies Active Allergy Reactions Criticality Noted Date Comments Gluten Meal 03/12/2025 Latex Itching,Other,Rash Low 12/20/2023 Other Reaction(s): itchy rash Sulfa Antibiotics Rash,Itching Low 12/20/2023 Medications anastrozole (Arimidex) 1 MG tablet Take 1 tablet by mouth Daily. Active b complex-folic acid tablet Take by mouth. Active cholecalciferol (Vitamin D-3) 1.25 MG (00021 UT) capsule Take by mouth. Active Leuprolide [...] food to avoid upset stomach 10/11/2024 Active magnesium oxide (Mag-Ox) 400 (240 Mg) MG tablet Take 400 mg by mouth daily. Active riboflavin 100 MG tablet Take 100 mg by mouth daily. Take 4 tablets daily Active Active Problems Problem Noted Date Diagnosed Date Gastroesophageal reflux disease 10/11/2024 S/P mastectomy, bilateral 06/18/2024 Personal history of breast cancer 06/18/2024 History of breast cancer 09/18/2021 Encounters Date Type Department Care Team Description 07/19/2025 11:30 AM EST Office Visit [facility] Plastic Surgery [address] [place] [address] [place] [address] Sekou Watson MD S/P mastectomy, bilateral (Primary Dx); History of breast cancer 07/19/2025 Travel 07/14/2025 Travel from Last 3 Months Social History Tobacco [...] Mass Index 23.44 07/19/2025 11:17 AM EST Plan of Treatment Health Maintenance Due Date [...] 2025 Zoster Vaccines (1 of 2) 2031 RSV Vaccines (1 - 1-dose 75+ series) 2056 HIB Vaccines Aged Out No longer eligi [...] Advance Directives For more information, please contact: [phone] (Available ) * Resuscitation Status (Latest Code Status on File) Date Activated Date Inactivated Comments 10/11/2024 7:21 AM 10/11/2024 7:22 PM Question Answer Comments If no pulse and not breathing: Attempt CPR If pulse and breathing present: Intubati on and terminal clerk mechanical ventilation Care Teams Spinning Lathe Operator Automatic Relationship Specialty Start Date End Date Shruti Robbins [address] [place] [address] PCP - General 07/19/25
--- OUTSIDE RECORDS SUMMARY | 2025-07-22 09:32 | XMS_ITS | Encounter Summary ---
Author Organization [facility] Address [address] [place] [address] Phone Care Team Providers Care Hse Manager Name Role Phone Anamaria Tabares MD Primary Care Provider [phone] Self-Referred, Patient Unavailable Unavailab Mitzi Lyles COMMERCIAL SHEET METAL FOREMAN Unavailable [phone] Raymond Wilson MD Unavailable Adenike Ashby RN Unavailable [phone] Sekou Watson MD Unavailable James Jo MD Unavailable [phone] Gracie Chang MD Unavailable [phone] Brandy Alarcon RN Unavailable [email or web address] Juani Chatman RN Unavailable Dunia@ [email or web address] Juani Chatman RN Unavailable Dunia@ [email or web address] Bhumi Abdi RN Unavailable YANIRA [email or web address] Shruti George NP Primary Care Provider Encounter Details Date Type Department Care Team (Late st Contact Info) Description 01/15/2022 Procedure Pass [facility] Echocardiography [address] [place] [address] Social History Tobacco Use Types Packs/Day Years [...] AM EST Blood Draw Laboratory Services, [facility] at [address] [address] Raymond Wilson MD [address] [place] [address] [email or web address] 08/20/2025 9:30 AM EST Office Visit [facility], Janae Mckee [facility], [facility] at [address] [address] Mitzi Huber, [address] [address] [email or web address]. [facility] 08/20/2025 10:30 AM EST Infusion Infusion Therapy Services [facility], [facility] at [address] [address] Raymond Wilson MD [address] [place] [address] Dianna@[email or web address] Brandy Alarcon, RN [address] [place] [address] [email or web address] documented as of this encounter Visit [...] documented as of this encounter Care Teams Hse Manager Relationship Specialty Start Date End Date Anamaria Tabares MD [facility] [place] [address] PCP - General Internal Medicine 01/06/22 12/19/23 Shruti George, NORY [address] [place] [address] [email or web address] PCP - General Nurse Practitioner 12/20/23 Self-Referred, Patient 01/06/22 Mitzi Huber CNP [address] [place] [address] [email or web address]. [facility] Medical Oncology 02/04/22 Raymond Wilson MD [address] [place] [address] Dianna@[email or web address] Medical Oncology 02/04/22 Adenike Ashby, JOSUE [address] [place] [address] [email or web address] Primary Infusion Nurse 02/04/22 Sekou Watson MD [address] [place] [address] [place] [address] Plastic and Reconstructive Surgery 02/19/22 James Jo MD [facility] Medicine [address] [place] [phone] [email or web address] Radiation Oncology 02/19/22 Gracie Chang MD [address] [place] [address] Surgical Oncology 02/19/22 Brandy Alarcon, [address] [place] [address] [email or web address] Primary Infusion Nurse 04/06/22 Juani Chatman RN [address] [place] [address] [email or web address] Associate Infusion Nurse 04/06/22 04/06/22 Juani Chatman RN [address] [place] [address] [email or web address] Associate Infusion Nurse 04/06/22 Bhumi Abdi RN [address] [place] [address] [email or web address] Associate Infusion Nurse 10/06/22 documented as of this encounter Additional Source Comments The information contained in this document represents components of the legal health record. It is not the complete legal health record.[facility]
--- OUTSIDE RECORDS SUMMARY | 2025-07-22 09:32 | XMS_ITS | Encounter Summary ---
Author Organization [facility] Address [address] [place] [address] Phone Care Team Providers Care Food Inspector Name Role Phone Anamaria Tabares MD Primary Care Provider Self-Referred, Patient Unavailable Unavailab Mitzi Lyles SAND CUTTING MACHINE OPERATOR Unavailable [phone] Raymond Wilson MD Unavailable Adenike Ashby RN Unavailable [phone] Sekou Watson MD Unavailable aJmes Jo MD Unavailable [phone] Gracie Chang MD Unavailable [phone] Brandy Alarcon RN Unavailable [email or web address] .[place] Juani Chatman RN Unavailable Dunia@ [facility].[place] Juani Chatman RN Unavailable Dunia@ [facility].[place] Bhumi Abdi RN Unavailable YANIRA [email or web address] Shruti George NP Primary Care Provider Encounter Details Date Type Department Care Team (Late st Contact Info) Description 01/15/2022 Procedure Pass [facility] L2 PRU [address] [place] [address] Social History Tobacco Use Types Packs/Day Years [...] 8:50 AM EST Blood Draw Laboratory Services, [facility] at [address] [address] Raymond Wilson MD [address] [place] [address] [email or web address]@[email or web address] 08/20/2025 9:30 AM EST Office Visit [facility], Janae Mckee [place] [facility], [facility] at [address] [address] Mitzi Huber, [address] [address] Mariah@[email or web address]. [facility] 08/20/2025 10:30 AM EST Infusion Infusion Therapy Services [facility], [facility] at [address] [address] Raymond Wilson MD [address] [place] [address] Dianna@[facility] Brandy Alarcon, JOSUE [address] [place] [address] [email or web address] documented as of this encounter [...] documented as of this encounter Care Teams Food Inspector Relationship Specialty Start Date End Date Anamaria Tabares MD [address] [place] [address] PCP - General Internal Medicine 01/06/22 12/19/23 Shruti George NP [address] [place] [address] [email or web address] PCP - General Nurse Practitioner 12/20/23 Self-Referred, Patient 01/06/22 Mitzi Huber CNP [address] [place] [address] [email or web address]. [facility] Medical Oncology 02/04/22 Raymond Wilson MD [address] [place] [address] Dianna@[facility] Medical Oncology 02/04/22 Adenike Ashby RN [address] [place] [address] [email or web address] Primary Infusion Nurse 02/04/22 Sekou Watson MD [address] [place] [address] [place] [address] Plastic and Reconstructive Surgery 02/19/22 James Jo MD [address] [phone] [email or web address] Radiation Oncology 02/19/22 Gracie Chang MD [address] [place] [address] Surgical Oncology 02/19/22 Brandy Alarcon RN [address] [place] [address] CLEM@[facility] Primary Infusion Nurse 04/06/22 Juani Chatman RN [address] [place] [address] Dunia@[email or web address] Associate Infusion Nurse 04/06/22 04/06/22 Juani Chatman RN [address] [place] [address] [email or web address] Associate Infusion Nurse 04/06/22 Bhumi Abdi RN [address] [place] [address] NORMA@[facility] Associate Infusion Nurse 10/06/22 documented as of this encounter Additional Source Comments The information contained in this document represents components of the legal health record. It is not the complete legal health record.[facility]
--- OUTSIDE RECORDS SUMMARY | 2025-07-22 09:32 | XMS_ITS | Encounter Summary ---
Author Organization [facility] Address [address] [place] [address] Phone Care Team Providers Care Boat And Plant Utility Supervisor Name Role Phone Shruti Robbins Primary Care Provider [phone] Encounter Details Date Type Department Care Team (Latest Contact Info) Description 07/19/2025 Travel Social History Tobacco Use Types Packs/Day Years Used Date Smoking Tobacco: Never Passive Smoke Exposure: Never Smokeless Tobacco: Never Alcohol Use Standard Drinks/Week Comments Yes 0 (1 standard drink = 0.6 oz pur e alcohol) per pt, few drinks/month Comments No Sex and Gender Information Value Date Recorded Sex Assigned at Female 10/16/2024 10:39 AM EST Legal Sex Female 11:26 AM EST Gender Identity Female 10/16/2024 10:39 AM EST Sexual Orientation Straight 10/16/2024 10 :39 AM EST documented as of this encounter Plan of Treatment Not on file documented as of this encounter Visit Diagnoses Not on filedocumented in this encounter Care Teams Boat And Plant Utility Supervisor Relationship Specialty Start Date End Date Shruti Robbins [address] [place] [address] PCP - General 07/19/25 documented as of this encounter
--- OUTSIDE RECORDS SUMMARY | 2025-07-22 09:32 | XMS_ITS | Encounter Summary ---
Author Organization [facility] Address [address] [place] [address] Phone Care Team Providers Care Key Attendant Name Role Phone Anamaria Tabares MD Primary Care Provider [phone] Self-Referred, Patient Unavailable Unavailab Mitzi Lyles CNP Unavailable [phone] Raymond Wilson MD Unavailable Adenike Ashby RN Unavailable [phone] Sekou Watson MD Unavailable [phone] James Jo MD Unavailable [phone] Gracie Chang MD Unavailable [phone] Brandy Alarcon RN Unavailable [email or web address] .[email or web address] Juani Chatman RN Unavailable Dunia@ [facility].[place] Juani Chatman RN Unavailable Dunia@ [facility].[place] Bhumi Abdi RN Unavailable YANIRA [email or web address] Shruti George NP Primary Care Provider Encounter Details Date Type Department Care Team (Late st Contact Info) Description 01/21/2022 Telephone [facility] Angio Interventional Radiology [address] [place] [address] Sandy Suggs, JOSUE [address] [place] [address] [email or web address] Social History Tobacco Use Types Packs/Day Years [...] 8:50 AM EST Blood Draw Laboratory Services, [facility] at [address] [address] Raymond Wilson MD [address] [place] [address] Dianna@[facility] AT [facility] 08/20/2025 9:30 AM EST Office Visit [facility], Janae Mckee [facility], [facility] at [address] [address] Mitzi Huber, [address] [address] Mariah@[email or web address]. [facility] 08/20/2025 10:30 AM EST Infusion Infusion Therapy Services [facility], [facility] at [address] [address] Raymond Wilson MD [address] [place] [address] Dianna@[facility] Brandy Alarcon, JOSUE [address] [place] [address] [email or web address]@[email or web address] documented as of this encounter Visit [...] documented as of this encounter Care Teams Key Attendant Relationship Specialty Start Date End Date Anamaria Tabares MD [facility] [place] [address] PCP - General Internal Medicine 01/06/22 12/19/23 Shruti George NP [address] [place] [phone] [email or web address] PCP - General Nurse Practitioner 12/20/23 Self-Referred, Patient 01/06/22 Mitzi Huber CNP [address] [place] [address] Mariah@[email or web address]. [facility] Medical Oncology 02/04/22 Raymond Wilson MD [address] [place] [address] Dianna@[facility] Medical Oncology 02/04/22 Adenike Ashby RN [address] [place] [address] [email or web address] Primary Infusion Nurse 02/04/22 Sekou Watson MD [address] [place] [address] [place] [address] Plastic and Reconstructive Surgery 02/19/22 James Jo MD [facility] Medicine [address] [place] [address] [email or web address] Radiation Oncology 02/19/22 Gracie Chang MD [address] [place], [place] [address]tony [place] [address] Surgical Oncology 02/19/22 Brandy Alarcon RN [address] [place] [address] [email or web address] Primary Infusion Nurse 04/06/22 Jauni Chatman RN [address] [place] [address] Dunia@[facility] Associate Infusion Nurse 04/06/22 04/06/22 Juani Chatman RN [address] [place] [address] Dunia@[facility] Associate Infusion Nurse 04/06/22 Buhmi Abdi RN [address] [place] [address] NORMA@[email or web address] Associate Infusion Nurse 10/06/22 documented as of this encounter Additional Source Comments The information contained in this document represents components of the legal health record. It is not the complete legal health record.[facility]
--- OUTSIDE RECORDS SUMMARY | 2025-07-22 09:33 | XMS_ITS | Clinical Summary ---
Author Organization [facility] Address [address] [place] [address] Care Team Providers Care Machine Stoppage Frequency Checker Name Role Phone Unavailable Primary Care Provider [...] Screening 1981 Diabetes Screening 1981 HPV Screening (self-collect) 1981 HPV Screening 1981 Hepatitis C Screening [...] Drug Screen 09/12/2024 Depression Annual Screen 09/12/2024 Exz-UMSKP-92 ( season) 2025 021, 12/10/2020 Imm-Influenza (#1) 2025 07/23/2016 Imm-DTaP/Tdap/Td (3 - Td or Tdap) 07/23/2026 016, 05/22/2013 Cervical Ablation/Cold-Knife Conization Discontinued Cervical Cryotherapy Discontinued Colposcopy Discontinued Excision/Leep Discontinued HPV Genotyping Discontinued Vaginal Pap Discontinued Vulvoscopy Discontinued Insurance [facility] Member Subscriber Plan / Payer (Ef fective 2020-Present) Name:Shruti Mckeon Relation to Subscriber:Self Name:Shruti Mckeon Payer ID:[id number] Group ID:Not on file Type:Lorie Address: [address] [address]
--- OUTSIDE RECORDS SUMMARY | 2025-07-22 09:33 | XMS_ITS | Clinical Summary ---
Author Organization [facility] Address [address] [place] [address] Phone Care Team Providers Care Corncob Pipe Supervisor Name Role Phone Self-Referred, Patient Unavailable Unavailab Mitzi Lyles [employer]ER Unavailable [phone] Raymond Wilson MD Unavailable Adenike Ashby RN Unavailable Sekou Watson MD Unavailable James Jo MD Unavailable Gracie Chang MD Unavailable [phone] Brandy Alarcon RN Unavailable [email or web address] .[place].[facility] Juani Chatman RN Unavailable Dunia@ [facility].[place].[facility] Bhumi Abdi RN Unavailable YANIRA [email or web address].[facility] Shruti George SUPERINTENDENT COLLIERY Primary Care Provider Allergies Active Allergy Reactions Criticality Noted Date Comments Latex Rash Low 08/03/2024 Sulfa (Sulfonamide Antibiotics) Rash Low 01/10 Medications ferrous sulfate 325 mg (65 mg cocopah iron) tablet Take 1 tablet by mouth [...] t be different from the original. 02/19/22: [id number] and paper tape trial, itchiness w/Sorbaview Pt tolerates skin prep, IV 3000 and paper tape-06/01/22 Problem Noted Date Diagnosed Date Malignant neoplasm of left b reast in female, estrogen receptor positive 01/11/2022 Encounters Date Type Department Care Team Description 05/28/2025 8:45 AM EDT Infusion Infusion Therapy Services [facility] at [place] [address] [address] Raymond Wilson MD Flynn, Nancy, RN Malignant neoplasm of left breast in female, estrogen receptor positive, unspecified site of breast (Primary Dx) 05/02/2025 1:31 PM EDT - 05/02/2025 11:59 PM EDT Hospital Encounter [place] [address] [address] Tiffany Johnson NP Leone, Jose P, MD Discharge Disposition: Home or Self Care 04/26/2025 Procedure Pass [place] [address] [address] 04/26/2025 Orders Only [facility], [facility], [facility] [address] [facility], 9th [place] [address] Tiffany Johnson NP Malignant neoplasm of left [...] 8:50 AM EST Blood Draw Laboratory Services, [facility] at [place] [address] [address] Raymond Wilson MD [address] [place] [address] Dianna@[facility] 08/20/2025 9:30 AM EST Office Visit [facility], [facility] En[facility], [facility] at [address] [address] Mitzi Huber, RAVI [address] [place] [address] Mariah@[email or web address]. [facility] 08/20/2025 10:30 AM EST Infusion Infusion Therapy Services [facility] at [address] [address] Raymond Wilson MD [address] [place] [address] Dianna@[facility] Brandy Alarcon, RN [address] [place] [address] [email or web address] Health Maintenance Due Date Last Done [...] patient's age to complete this topic IPV VACCINES Aged Out No longer eligi ble based on patient's age to complete this topic MENINGOCOCCAL VACCINES (ACWY) Aged Out No longer eligible based on patient's age to complete this topic MENINGOCOCCAL VACCINES (B) Aged Out N o longer eligible based on patient's age to complete this topic Medical Devices Implanted Type Area Instant Potato Processing Supervisor Device Identifier Shelf Expiration Date Model / Serial / Lot Port Dignity 6.6f Power Injectable Mid-Sized W/Attachable Catheter - [id number] Implanted:Qty: 1 on 01/22/2022 by Ty Hawkins PA-C at [facility] Right: Chest Wall MED COMP 08/11/2026 [id number] / / [id number] Procedures Procedure Name Priority Date/Time Associated Diagnosis [...] clinician's provided indication for this examination in [place]: *Invasive breast cancer, stage I/II/III, initial workup; [...] Re sult from Last 3 Months Insurance [employer] G[employer] PLUS PPO [employer] PLUS PPO [employer]jit[employer] GIC PLUS PPO [employer]IC PLUS PPO [employer]am [employer] GIC PLUS PPO [employer] PLUS PPO Shiram [employer] GIC PLUS PPO [employer] PLUS PPO [employer] PLUS PPO Care Teams Corncob Pipe Supervisor Relationship Specialty Start Date End Date Shruti George NP [address] [place] [phone] [email or web address] PCP - General Nurse Practitioner 12/20/23 Self-Referred, Patient 01/06/22 Mitzi Huber CNP [address] [place] [address] [email or web address]. [facility] Medical Oncology 02/04/22 Raymond Wilson MD [address] [place] [address] Dianna@[facility] Medical Oncology 02/04/22 Adenike Ashby RN [address] [place] [phone] KRIS@[facility] Primary Infusion Nurse 02/04/22 Sekou Watson MD [address] [place] [address] [address] Plastic and Reconstructive Surgery 02/19/22 James Jo MD [address] [address] [email or web address] Radiation Oncology 02/19/22 Gracie Chang MD [address] [place] [address] Surgical Oncology 02/19/22 Brandy Alarcon RN [address] [place] [phone] CLEM@[email or web address] Primary Infusion Nurse 04/06/22 Juani Chatman RN [address] [place] [address] Dunia@[facility] Associate Infusion Nurse 04/06/22 Bhumi Abdi RN [address] [place] [address] NORMA@[email or web address] Associate Infusion Nurse 10/06/22 Additional Source Comments The information contained in this document represents components of the legal health record. It is not the complete legal health record.[facility]
--- OUTSIDE RECORDS SUMMARY | 2025-07-22 09:34 | XMS_ITS | Encounter Summary ---
Author Organization [facility] Address [address] [place] [address] Phone Care Team Providers Care Tufting Machine Operator Name Role Phone Self-Referred, Patient Unavailable Unavailab Mitzi Lyles GEOMAGNETICIAN Unavailable [phone] Raymond Wilson MD Unavailable Adenike Ashby RN Unavailable [phone] Sekou Watson MD Unavailable James Jo MD Unavailable Gracie Chang MD Unavailable [phone] Brandy Alarcon RN Unavailable [email or web address] .[place] Juani Chatman RN Unavailable Dunia@ [facility].[place] Bhumi Abdi RN Unavailable YANIRA [email or web address] Shruti George MANAGEMENT PSYCHOLOGIST Primary Care Provider Encounter Details Date Type Department Care Team (Late st Contact Info) Description 04/26/2025 Procedure Pass [place] [place] [facility] [place] [address] [address] Social History Tobacco Use Types [...] 8:50 AM EST Blood Draw Laboratory Services, [facility] at [address] [address] Raymond Wilson MD [address] [place] [address] Dianna@[facility] 08/20/2025 9:30 AM EST Office Visit [facility], [facility], [facility] at [address] [address] Mitzi Huber CNP [address] [place] [phone] Mariah@[facility]. [facility] 08/20/2025 10:30 AM EST Infusion Infusion Therapy Services [facility], [facility] at [address] [place] [address] Raymond Wilson MD [address] [place] [phone] Dianna@[email or web address] Brandy Alarcon RN [address] [place] [address] CLEM@[email or web address] documented as of this encounter Visit Diagnoses Not on filedocumented in this encounter Care Teams Tufting Machine Operator Relationship Specialty Start Date End Date Shruti George NP [address] [place] [phone] [email or web address] PCP - General Nurse Practitioner 12/20/23 Self-Referred, Patient 01/06/22 Mitzi Huber CNP [address] [place] [phone] Mariah@[email or web address]. [facility] Medical Oncology 02/04/22 Raymond Wilson MD [address] [place] [address] Dianna@[facility] Medical Oncology 02/04/22 Adenike Ashby RN [address] [place] [address] [email or web address] Primary Infusion Nurse 02/04/22 Sekou Watson MD [address] [place] [address] [place] [address] Plastic and Reconstructive Surgery 02/19/22 James Jo MD [facility] [employer] [facility] [address] [place] [phone] [email or web address] Radiation Oncology 02/19/22 Gracie Chang MD [address] [place], [place] [address]tony [place] [address] Surgical Oncology 02/19/22 Brandy Alarcon RN [address] [place] [address] CLEM@[email or web address] Primary Infusion Nurse 04/06/22 Juani Chatman RN [address] [place] [address] Dunia@[email or web address] Associate Infusion Nurse 04/06/22 Bhumi Abdi RN [address] [place] [address] NORMA@[email or web address] Associate Infusion Nurse 10/06/22 documented as of this encounter Additional Source Comments The information contained in this document represents components of the legal health record. It is not the complete legal health record.[facility]
== END 2025-07-22 09:30 | disposition home or self-care (01) ==
LOC: HO.HGI 08:55
PROVIDERS: PCP Nurse Practitioner Family; Visit Provider Internal Medicine
DX: K90.0 Celiac disease (principal); D64.9 Anemia, unspecified; R76.89 Other specified abnormal immunological findings in serum
CPT/HCPCS: 99214